=== PATIENT | female | born 1945 | race Caucasian/White ===

== ENCOUNTER 2024-09-25 22:53 | Inpatient (IN) | payer MEDICARE, OTHER, SELFPAY ==
[2024-09-25 17:35] VITALS: BP 118/97
--- NOTE | 2024-09-25 17:46 | ED.GENMED ---
History of Present Illness
General
Chief Complaint: Abdominal Symptoms
Time Seen by Provider: 09/25/24 17:32
History of Present Illness
History of Present Illness:
78-year-old female presents to the emergency department for evaluation of recent increasing lethargy. EMS was called by family and upon arrival of EMS, patient began having copious coffee-ground emesis. She has a history of dementia and can
provide no history. No medication was provided by EMS and no family is present on arrival to the ED.
Review of Systems
Review of Systems
Allergies reviewed?: Yes
All Other Systems: ROS reviewed and negative except as documented in HPI and ROS
Phy Exam
Physical Exam
Physical Exam:
GEN: Well appearing, NAD, WDWN
HEENT: Oral mucosa moist, no scleral icterus
Cardiac: Regular rate
Lung: No respiratory distress, no tachypnea
Abdomen: Soft, diffusely tender to all 4 quadrants
MSK: No gross deformity or injuries
Skin: Good color, no pallor or jaundice, no rashes
Neuro: Alert, follows commands, nonsensical speech, cannot provide history
Psych: Calm, cooperative
Course
Orders/Labs/Results
Orders:
Orders
09/25/24 17:34
Electrocardiogram (*1) Urgent
Reason for Study: Fatigue / Weakness
EKG- Treatment ONCE
09/25/24 17:38
Type+Screen Urgent
Complete Blood Count/With Diff Urgent
Comprehensive Metabolic Panel Urgent
Lipase Urgent
Pantoprazole [Protonix IV] 80 mg IV NOW STA
09/25/24 17:45
Pantoprazole 80 mg/100 ml Nss [Protonix] 80 mg in 100 ml IV Q10H
09/25/24 17:48
0.9% Sodium Chloride [Nss (Preservative Free)] 20 ml IV NOW STA
09/25/24 17:49
Prothrombin Time Urgent
09/25/24 18:25
CT Abd/Pel (IV only)-DH only Urgent
Comment:
Reason For Exam: epigastric pain
09/25/24 18:34
Haloperidol Lactate [Haldol] 1 mg IV NOW STA
09/25/24 19:55
Lorazepam [Ativan] 2 mg .ROUTE .STK-MED ONE
09/25/24 19:57
Lorazepam [Ativan] 1 mg IV NOW STA
09/25/24 20:15
Urinalysis Reflex To Culture Urgent
Date Specimen was Collected: 09/25/24
Time Specimen was Collected: 19:01
Urine Microscopic Reflex Cult Urgent
Urine Culture Urgent
KORI Source: U
Specimen Description:
Date Specimen was Collected: 09/25/24
Time Specimen was Collected: 19:01
09/25/24 20:36
CefTRIAXone [Rocephin] 1,000 mg IV NOW STA
09/25/24 21:03
ABO2 Urgent
BBK Wristband Number:
Associate notified that ABO2 has been ordered: [id number]
Date: 09/25/24
Time: 19:00
[employer] ID: [id number]
Abnormal Lab Results
09/25/24 09/25/24
17:38 20:15
WBC 18.7 H 10^3/uL
(4.8-10.8)
RBC 4.14 L 10^6/uL
(4.20-5.40)
Hct 36.1 L %
(37.0-47.0)
Abs Immat Gran (auto) 0.1 H 10^3/uL
(0-0.05)
Absolute Neuts (auto) 15.7 H 10^3/uL
(1.4-6.5)
Absolute Monos (auto) 1.2 H 10^3/uL
(0.1-0.6)
Immature Gran % 0.7 H %
(0-0.5)
Neutrophils % 84.1 H %
(42.2-75.2)
Lymphocytes % 7.9 L %
(20.5-51.1)
Sodium 134 L mmol/L
(135-145)
BUN 19 H mg/dl
(7-17)
Glucose 126 H mg/dl
(70-99)
Urine Ketones 3+ A
(Negative)
Ur Occult Blood Reflex 2+ A
(Negative)
Leukocyte Esterase Rfl 2+ A
(Negative)
Urine RBC 3-6 A /HPF
(0-2)
Urine WBC (Reflex) 50-60 A /HPF
(0-5)
Urine Bacteria (Reflex) Few A
(Negative)
Urine Albumin (Reflex) 1+ A
(Neg - Trace)
09/25/24 17:38
09/25/24 17:38
Vital Signs
Initial and Last Documented VS:
Initial Vital Signs
Temp Pulse Resp BP Pulse Ox
99.3 F 95 10 118/97 95
09/25/24 17:35 09/25/24 17:35 09/25/24 17:35 09/25/24 17:35 09/25/24 17:35
Last Documented Vital Signs
Temp Pulse Resp BP Pulse Ox
99.3 F 100 16 135/93 97
09/25/24 17:35 09/25/24 19:00 09/25/24 19:00 09/25/24 18:00 09/25/24 18:45
MDM/Problems Addressed
MDM/Problems Addressed:
Patient will be admitted for UTI which is likely the cause of her initial lethargy. She was noted to have significant degree of coffee-ground emesis concerning for upper GI bleed on arrival however vomiting stopped shortly thereafter, hemoglobin is
stable, will maintain PPI drip for admission purposes
*Critical Care Note
Total Time (30-74mins, 75-104mins- exclusive of procedures): Not Applicable
ED Attending Note
-
Portions of this chart may have been created with voice recognition software.� Occasional wrong word or��sound alike� substitutions may have occurred due to the inherent limitations of voice recognition software.
Discharge Plan
Departure
Patient Disposition: Admit
Date of Disposition: 09/25/24
Time of Disposition: 22:13
Admit to: Med/Surg
Presentation/result/management discussed w/ accepting MD/DO: Hospitalist
Discharge Problem:
Urinary tract infection, Coffee ground emesis
Referrals:
Adriana Newton MD [Family Provider] -
Interventions
Interventions:
*Risk Screen - Suicide Last Done: 09/25/24 17:36
*General Assessment Last Done: 09/25/24 17:36
*Neglect/Abuse Screening Last Done: 09/25/24 17:36
*ED- Fall Risk Assessment Last Done: 09/25/24 17:36
*ED COVID-19 Vaccine History Last Done: 09/25/24 17:36
HH-Uszbrs-Yhllixzzow Assessment Last Done: 09/25/24 17:45
Discharge Date and Time
Print Language: TELUGU
[2024-09-25] MEDS: NSS (PRESERVATIVE FREE) 20 ML IV (17:52)
[2024-09-25] MEDS: PROTONIX IV 80 MG IV (17:52)
[2024-09-25 17:55] LABS: % Basophils 0.4 % (0-2); % Eosinophils 0.4 % (0-6); % Immature Granulocytes 0.7 % (0-0.5); % Lymphocytes 7.9 % (20.5-51.1); % Monocytes 6.5 % (1.7-9.3); % Neutrophils 84.1 % (42.2-75.2); Absolute Basophils 0.1 10^3/uL (0-0.2); Absolute Eosinophils 0.1 10^3/uL (0-0.7); Absolute Immature Granulocytes 0.1 10^3/uL (0-0.05); Absolute Lymphocytes 1.5 10^3/uL (1.2-3.4); Absolute Monocytes 1.2 10^3/uL (0.1-0.6); Absolute Neutrophils 15.7 10^3/uL (1.4-6.5); Hematocrit 36.1 % (37.0-47.0); Hemoglobin 12.2 g/dL (12.0-16.0); Mean Corp Hgb Conc. 33.8 g/dL (33.0-37.0); Mean Corpuscular Hgb 29.5 pg (27.0-31.0); Mean Corpuscular Volume 87.2 fL (81.0-99.0); Mean Platelet Volume 8.9 fL (7.4-10.4); Nucleated Red Blood Cells % 0 %; Platelet Count 362 10^3/uL (130-400); Red Blood Cell Count 4.14 10^6/uL (4.20-5.40); Red Cell Dist. Width 13.3 % (11.5-14.5); White Blood Cell Count 18.7 10^3/uL (4.8-10.8)
[2024-09-25] MEDS: PROTONIX 100 IV (17:55)
[2024-09-25 18:00] VITALS: BP 135/93
[2024-09-25 18:09] LABS: ALT (SGPT) 15 U/L (0-35); AST (SGOT) 25 U/L (14-36); Albumin 3.5 g/dl (3.5-5.0); Alkaline Phosphatase 92 U/L (38-126); Blood Urea Nitrogen 19 mg/dl (7-17); Calcium 8.9 mg/dl (8.4-10.2); Carbon Dioxide 27 mmol/L (22-30); Chloride 100 mmol/L (98-107); Glucose 126 mg/dl (70-99); Lipase 58 U/L (23-300); Potassium 3.8 mmol/L (3.5-5.1); Sodium 134 mmol/L (135-145); Total Bilirubin 0.6 mg/dl (0.2-1.3); Total Protein 6.3 g/dl (6.3-8.2); eGFR > 60.00
[2024-09-25 18:11] LABS: INR 0.99; PT 13.4 Sec (11.4-14.6)
[2024-09-25] MEDS: HALDOL 1 MG IV (18:36)
[2024-09-25] MEDS: ATIVAN 1 MG IV (19:57)
[2024-09-25 20:20] LABS: Urine Albumin 1+ (Neg - Trace); Urine Bilirubin Negative (Negative); Urine Character Clear (Clear); Urine Color Yellow; Urine Glucose Negative (Negative); Urine Ketone 3+ (Negative); Urine Leukocyte 2+ (Negative); Urine Nitrite Negative (Negative); Urine Occult Blood 2+ (Negative); Urine Urobilinogen Negative (Neg - 1+)
[2024-09-25 20:27] LABS: Urine Squamous Cell 0-2 /LPF (Few)
[2024-09-25 20:28] LABS: Urine Bacteria Few (Negative); Urine White Cell 50-60 /HPF (0-5)
[2024-09-25] MEDS: ROCEPHIN 1000 MG IV (21:04)
[2024-09-25 22:19] VITALS: BP 145/77
[2024-09-25] MEDS: NSS 1000 IV (22:22)
--- NOTE | 2024-09-25 22:46 | HPS.HSE ---
Family Physician
-
Family Physician: Adriana Newton
Chief Complaint
-
unresponsiveness
History of Present Illness
78-year-old female past medical history of breast cancer, dementia, hypertension, GERD/hiatal hernia, hyperlipidemia, presenting with change in mental status. Patient has severe dementia and normally cannot have during conversations which is gotten
worse over the past several months. Yesterday was a particularly bad day and she was romero and refusing medications. This morning she would not wake up until this afternoon and was less responsive. She has been having urinary incontinence for the
past month. She was noted to have some chills. She has been refusing her stool softener and did not have a bowel movement for 3 days.
EMS was called due to decreased responsiveness and while they were there she had projectile vomiting of coffee-ground emesis.
She does not smoke or drink alcohol.
Medical History
Past Medical History
Past Medical History: Reports Other ( breast cancer, dementia, hypertension, GERD/hiatal hernia, hyperlipidemia)
Past Surgical History: Reports Other (Bilateral knee surgery, cataract surgery, hiatal hernia surgery)
Social History
Tobacco: Non-smoker
Alcohol: None
Drug: None
Family History
Family History: Not pertinent
Allergies / Home Medications
Allergies reflects when Allergies were last updated in [facility].
Home Medications with original date entered in [facility]
Allergy/Medication List:
Allergies
Allergy/AdvReac Type Severity Reaction Status Date / Time
No Known Allergies Allergy Verified 09/25/24 17:44
Home Medications
anastrozole 1 mg tablet 1 mg PO QPM 09/25/24
donepezil 10 mg tablet 10 mg PO HS 09/25/24
losartan 100 mg-hydrochlorothiazide 25 mg tablet 1 tab PO DAILY 09/25/24
memantine 10 mg tablet 10 mg PO BID 09/25/24
omeprazole 40 mg capsule,delayed release 40 mg PO DAILY 09/25/24
risperidone 1 mg tablet 1 mg PO NOON 09/25/24
simvastatin 20 mg tablet 20 mg PO DAILY 09/25/24
Review of Systems
-
History Source: Patient
A 12 point ROS was completed and negative except as noted: Yes
Constitutional: Reports No Symptoms
EENT: Reports No Symptoms
Respiratory: Reports No Symptoms
Cardiac: Reports No Symptoms
Abdomen/GI: Reports See HPI
: Reports No Symptoms
Musculoskeletal: Reports No Symptoms
Skin: Reports No Symptoms
Neurological: Reports No Symptoms
Endocrine: Reports No Symptoms
Hematologic/Lymphatic: Reports No Symptoms
Psych: Reports No Symptoms
Physical Exam
Vital Signs
Vital Signs
Temp Pulse Resp BP Pulse Ox
99.3 F 84 15 145/77 98
09/25/24 17:35 09/25/24 22:30 09/25/24 22:30 09/25/24 22:19 09/25/24 22:30
Physical Exam
General: Well Developed, Well Nourished and No Apparent Distress
HEENT: NormoCephalic, Moist mucous membranes and Atraumatic
Respiratory: Clear
Cardiac: S1/S2 and Regular Rhythm; No Murmur or Rub
GI: Soft, Non Tender, Non Distended and Normal Bowel Sounds; No Organomegaly
Rectal: Deferred by Provider
Musculoskeletal: No Clubbing, No Cyanosis and No Edema
Skin: No Rash
Neuro: Nonfocal/grossly intact
Laboratory Results
-
09/25/24 17:38
09/25/24 17:38
Laboratory Results
PT 13.4 Sec (11.4-14.6) 09/25/24 17:49
INR 0.99 09/25/24 17:49
Total Bilirubin 0.6 mg/dl (0.2-1.3) 09/25/24 17:38
AST 25 U/L (14-36) 09/25/24 17:38
ALT 15 U/L (0-35) 09/25/24 17:38
Alkaline Phosphatase 92 U/L (38-126) 09/25/24 17:38
Lipase 58 U/L (23-300) 09/25/24 17:38
Data Reviewed
-
Lab Data: Labs Reviewed by me
Old Records: Reviewed
Impression/Plan
-
IMPRESSION:
PLAN:
# Acute on chronic metabolic encephalopathy secondary to UTI
-Leukocytosis of 18
-Urine culture
-IV fluids
-Ceftriaxone
# Upper GI bleeding
-CT abdomen pelvis shows reflux esophagitis, moderate hiatal hernia, mild enteritis/ileitis, moderate colonic stool burden
-Protonix drip
-N.p.o.
-Hemoglobin of 12
# Constipation
-last bowel movement 3 days ago
-Resume bowel regimen if patient agreeable
-Start MiraLAX
History of hiatal hernia status post surgery
GERD
Progressive dementia with worsening behavioral disturbances
-Continue memantine, donepezil
-Continue Risperdal
Essential hypertension
-Continue losartan/hydrochlorothiazide
Hyperlipidemia
-Continue statin
Breast cancer
-Continue anastrozole
Full code
DVT prophylaxis�SCDs
N.p.o.
[2024-09-25 23:00] VITALS: BP 154/70
[2024-09-25 23:46] VITALS: BP 151/82
[2024-09-26] MEDS: NSS 1000 IV ×3 (00:18→22:13)
--- NOTE | 2024-09-26 00:27 | PTCARENOTE ---
Patient arrived from ED, lethargic, nonverbal. VSS. Patient nonverbal; per , patient is nonverbal, at baseline. Admission completed by this RN via phone call with patient's , Eduardo. Per Eduardo, patient has fallen in the last month;
therefore, patient is a high fall risk. Bed alarm in place. Fall Risk magnet hanging, outside patient's door. Skin check completed. Old/healing pressure injury on sacrum with new, developing pressure injury. Wound consulted. IV fluids running at
100 ml/hr. Incontinence care completed. Q 2 hour turns. Bed in lowest position. Call hernandez and personal belongings within reach.
[2024-09-26] MEDS: PROTONIX 100 IV (03:46)
--- NOTE | 2024-09-26 06:46 | CON.GI ---
Addendum entered and electronically signed by Lilian De La Garza MD 09/26/24 18:15:
The patient was seen and examined by me independently in collaboration with the nurse practitioner.
Past medical history/social history/medications/allergies/family history reviewed.
Lab data and imaging data reviewed.
78-year-old female recent evaluation emergency room for constipation presenting with decreased oral intake and coffee-ground emesis. Found to have leukocytosis on admission with low-grade temperature to 100.5. CT showed reflux esophagitis,
moderate hiatal hernia, consider direct visualization to rule out esophageal cancer, ileus, colonic stool burden may represent constipation. Patient has dementia minimally verbal. Unable to take much of a history. She was found to have a UTI.
Most likely has ileus and constipation resulting in vomiting and coffee-ground emesis. Plan for bowel regimen. Trend hemoglobin. Continue PPI although low suspicion for GI bleed. I attempted to reach out to the , I will discuss with him
endoscopy in the future for this radiology read but my suspicion is given her advanced dementia will be likely best to hold off on further evaluation. I left him a voicemail and I will try to reach out to him again tomorrow.
Original Note:
Consultation
-
Date/Time Consultation Requested: 09/25/24 2340
Date/Time Consultation Performed: 09/26/24 1140
Requesting Provider: Ashly Penaloza MD
Performing Provider: Vangie ROBERTS, Maria De La Garza MD
Reason for Consultation: coffee ground emesis, constipation
Medical History
Chief Complaint / HPI
Chief Complaint: vomiting, constipation
History of Present Illness:
Pt is an 78yo with hx breast CA, dementia, HTN, GERD, HH with prior HH repair, hyperlipidemia with eval 09/25 in ER for constipation, decreased oral intakes and coffee ground emesis. On admission noted with WBC 18,700, hbg 12.2, Na 134, glucose 126,
US with increased WBC's and bacteria with cx pending with otherwise stable labs with low grade temp 100.5. CT completed on admission with IV contrast only with reflux esophagitis, moderate HH, consider visualization to rule out distal esophageal
neoplasm, mild ileus/enteritis, and moderate stool burden with concern for constipation. No hx EGD. hx colonoscopy 2012 with 2 mm HP polyps in sigmoid and TC, scar in rectum.
At this time reviewed with spouse pt with baseline dementia with minimal verbal but ambulatory status. He noted some balance issues and change in mentation for 2 days with onset of fever then on arrival for EMS noted with vomiting large amount
dark emesis. he did have some difficulty with swallowing pill just before admission with weakness. Last episode of vomiting about 2 years ago with viral illness. She has chronic constipation with stools every several days despite Miralax daily.
No rectal bleeding.
Past Medical History
Past Medical History: Cancer (breast CA), GERD, HTN, Hypercholesterolemia, Psychiatric (dementia ) and Other (hiatal hernia )
Past Surgical History: Orthopedic (b/l TKR) and Other (HH repair, cataract surgery )
Social History
Tobacco: Former Smoker (quit 40 years ago )
Alcohol: Former (social in past )
Drug: None
Personal:
Living: With Family
Employment: Retired
Family History
Family History: Other (no known family hx GI malignancies or problems)
Allergies / Home Medications
Allergy/AdvReac Type Severity Reaction Status Date / Time
No Known Allergies Allergy Verified 09/25/24 17:44
�Medication �Instructions �Recorded
anastrozole 1 mg tablet 1 mg PO QPM 09/25/24
donepezil 10 mg tablet 10 mg PO HS 09/25/24
losartan 100 1 tab PO DAILY 09/25/24
mg-hydrochlorothiazide 25 mg tablet
memantine 10 mg tablet 10 mg PO BID 09/25/24
omeprazole 40 mg capsule,delayed 40 mg PO DAILY 09/25/24
release
risperidone 1 mg tablet 1 mg PO NOON 09/25/24
simvastatin 20 mg tablet 20 mg PO DAILY 09/25/24
Review of Systems
-
Unable to obtain full review of systems at this time due to: Dementia
History Source: Patient and Family
Constitutional: Reports Fever and Fatigue (balance issues prior to admission)
EENT: Reports No Symptoms
Respiratory: Reports No Symptoms
Abdomen/GI: Reports Nausea, Vomiting (dark emesis prior to admission ) and Constipated
: Reports Other (difficult to assess with dementia )
Skin: Reports No Symptoms
Neurological: Reports No Symptoms and Weakness
Endocrine: Reports No Symptoms
Hematologic/Lymphatic: Reports Bleeding (dark emesis )
Vital Signs
Temp Pulse Resp BP Pulse Ox
100.5 F H 87 18 151/82 99
09/25/24 23:46 09/25/24 23:46 09/25/24 23:46 09/25/24 23:46 09/25/24 23:46
Physical Exam
Exam
General: Other (non verbal but attempting to take off mits )
HEENT: Normocephalic and Anicteric
Respiratory: Clear
Cardiac: Regular Rhythm
GI: Soft, Non Tender and Non Distended
Musculoskeletal: No Clubbing and No Cyanosis
Skin: Warm and Dry
Neuro: Other (non verbal but attempting to take off mits )
Psych: Calm
Results
WBC 18.7 10^3/uL (4.8-10.8) H 09/25/24 17:38
Hgb 12.2 g/dL (12.0-16.0) 09/25/24 17:38
Hct 36.1 % (37.0-47.0) L 09/25/24 17:38
MCV 87.2 fL (81.0-99.0) 09/25/24 17:38
Plt Count 362 10^3/uL (130-400) 09/25/24 17:38
Absolute Neuts (auto) 15.7 10^3/uL (1.4-6.5) H 09/25/24 17:38
PT 13.4 Sec (11.4-14.6) 09/25/24 17:49
INR 0.99 09/25/24 17:49
Sodium 134 mmol/L (135-145) L 09/25/24 17:38
Potassium 3.8 mmol/L (3.5-5.1) 09/25/24 17:38
Chloride 100 mmol/L (98-107) 09/25/24 17:38
Carbon Dioxide 27 mmol/L (22-30) 09/25/24 17:38
BUN 19 mg/dl (7-17) H 09/25/24 17:38
Creatinine 0.6 mg/dL (0.6-1.0) 09/25/24 17:38
Calcium 8.9 mg/dl (8.4-10.2) 09/25/24 17:38
Total Bilirubin 0.6 mg/dl (0.2-1.3) 09/25/24 17:38
AST 25 U/L (14-36) 09/25/24 17:38
ALT 15 U/L (0-35) 09/25/24 17:38
Alkaline Phosphatase 92 U/L (38-126) 09/25/24 17:38
Lipase 58 U/L (23-300) 09/25/24 17:38
Diagnostic Image Results:
09/25/24 CT Abd/Pel (IV only)-DH only
1. Findings in keeping with reflux esophagitis. Moderate hiatal hernia. Consider direct visualization to rule out underlying distal esophageal neoplasm.
2. Mild enteritis/ileus.
3. Moderate diffuse colonic stool burden may reflect constipation.
EGD: none
2012 colonoscopy [facility] - Two 2 mm polyps in the sigmoid colon and in the
transverse colon. Resected and retrieved.
- Scar in the rectum.
bx HP polyp
Assessment / Plan
-
Pt is an 78yo with hx breast CA, dementia, HTN, GERD, HH with prior HH repair, hyperlipidemia with eval 09/25 in ER for constipation, decreased oral intakes and coffee ground emesis. On admission noted with WBC 18,700, hbg 12.2, Na 134, glucose 126,
US with increased WBC's and bacteria with cx pending with otherwise stable labs with low grade temp 100.5. CT completed on admission with IV contrast only with reflux esophagitis, moderate HH, consider visualization to rule out distal esophageal
neoplasm, mild ileus/enteritis, and moderate stool burden with concern for constipation. hx colonoscopy 2012 with 2 mm HP polyps in sigmoid and TC, scar in rectum.
-coffee ground emesis
-CT with reflux esophagitis/ moderate HH on PPI daily prior to admission
-constipation with moderate stool burden on imaging
-ileus/enteritis per imaging
-concern for UTI on admission
-leukocytosis with low grade fever
-hypokalemia
other med problems:
-GERD
-hx HH with prior repair
-dementia
-HTN
-hyperlipidemia
PLAN:
etiology of symptoms likely UTI with noted ileus/constipation with vomiting/coffee ground emesis with some more right sided stool burden
cont to treat UTI with abx await urine cx
no stools overnight
will increased miralax to BID - will need increased dosing on discharge with baseline stools every 3 days
give tap water enema now
CT with esophagitis /HH consider visualization per radiology --- would proceed with bowel regiment and clear out the review need for EGD with spouse-- hold for now unless signs of aggressive bleeding for now with fever/leukocytosis
trend hbg stable at 11.6
cont PPI BID
for speech eval with decreased mentation
review with nursing for slow oral intakes with some decreased mentation and hx vomiting prior to admission
if severe recurrent vomiting may need NGT
replete K per hospitalist
updated spouse
-
-
-
Thank you for consultation and allowing me to participate in the patient's care. Please call the [facility] physician during the after hours with any questions or concerns.
[2024-09-26 07:16] VITALS: BP 127/69
[2024-09-26 09:26] LABS: % Basophils 0.3 % (0-2); % Eosinophils 1.1 % (0-6); % Immature Granulocytes 0.5 % (0-0.5); % Lymphocytes 5.4 % (20.5-51.1); % Monocytes 6.8 % (1.7-9.3); % Neutrophils 85.9 % (42.2-75.2); Absolute Basophils 0.1 10^3/uL (0-0.2); Absolute Eosinophils 0.2 10^3/uL (0-0.7); Absolute Immature Granulocytes 0.1 10^3/uL (0-0.05); Absolute Lymphocytes 0.8 10^3/uL (1.2-3.4); Hematocrit 34.9 % (37.0-47.0); Hemoglobin 11.6 g/dL (12.0-16.0); Mean Corp Hgb Conc. 33.2 g/dL (33.0-37.0); Mean Corpuscular Hgb 29.9 pg (27.0-31.0); Mean Corpuscular Volume 89.9 fL (81.0-99.0); Mean Platelet Volume 9.5 fL (7.4-10.4); Nucleated Red Blood Cells % 0 %; Platelet Count 339 10^3/uL (130-400); Red Blood Cell Count 3.88 10^6/uL (4.20-5.40); Red Cell Dist. Width 13.4 % (11.5-14.5); White Blood Cell Count 15.1 10^3/uL (4.8-10.8)
--- NOTE | 2024-09-26 09:56 | W.PN.HOSP.TC ---
Addendum entered and electronically signed by Janki Dumont MD 09/26/24 11:38:
correction: Zosyn, will will treat suspected UTI and also cover Ileitis seen on CT
Original Note:
Today's Communication/Plan
-
see outlined plan below
Assessment / Plan
Assessment / Plan
Assessment:
Metabolic encephalopathy (from UTI) on chronic advanced, at least moderate degree, dementia
- mitts applied due to pulling wires
- no clear agitation just confused
- monitor mentation as treatment evolves
- continue Risperdal/Donepezil/Memantine when feasible
- NPO pending ST and GI evals. IVF running
Acute UTI
- leukocytosis; improving
- continue IV Rocephin day 2; pending culture
Acute vomiting with coffee grounds; concern for upper GI bleed
Hx of esophagitis, hiatal hernia (s/p surgery) and reflux/GERD
- continue IV PPI BID
- CT also with constipation which might be contributing to upper GI symptoms
- GI consulted
- continue bowel regimen
Essential hypertension
- continue losartan/hydrochlorothiazide
Hyperlipidemia
- continue statin
Breast cancer
- continue anastrozole
DVT ppx: SCDs
Code: Full
Anticipated Discharge: > 48 hours
Subjective/Interval History
-
Date of Service: September 26, 2024
in mitts, confused, per , acutely from chronic confusion
no vomiting
no BM x 3 days
Objective Data
-
Labs:
Laboratory Results
09/26/24
08:29
WBC 15.1 H
Hgb 11.6 L
Hct 34.9 L
Plt Count 339
Sodium Pending
Potassium Pending
Chloride Pending
Carbon Dioxide Pending
BUN Pending
Creatinine Pending
Glucose Pending
Calcium Pending
Total Bilirubin Pending
AST Pending
ALT Pending
Alkaline Phosphatase Pending
Vital Signs:
Vital Signs
Temp Pulse Resp BP Pulse Ox
98.7 F 85 18 127/69 98
09/26/24 07:16 09/26/24 07:16 09/26/24 07:16 09/26/24 07:16 09/26/24 07:16
Physical Exam
-
General: No Apparent Distress
HEENT: Normocephalic and Atraumatic
Respiratory: Negative Wheezes
Cardiac: Regular Rhythm and S1/S2
GI: Soft
Genito-urinary: No Costovertebral Tender
Neuro: Awake and AO x 3
Psych: Confused and Apparent Dementia
Data Reviewed
-
Total Time Spent with Patient (in minutes): 41
Labs: Labs Reviewed by me
[2024-09-26 10:47] LABS: ALT (SGPT) 14 U/L (0-35); AST (SGOT) 24 U/L (14-36); Albumin 3.6 g/dl (3.5-5.0); Alkaline Phosphatase 89 U/L (38-126); Blood Urea Nitrogen 9 mg/dl (7-17); Calcium 8.2 mg/dl (8.4-10.2); Carbon Dioxide 25 mmol/L (22-30); Chloride 104 mmol/L (98-107); Glucose 82 mg/dl (70-99); Potassium 3.1 mmol/L (3.5-5.1); Total Bilirubin 0.6 mg/dl (0.2-1.3); Total Protein 6.1 g/dl (6.3-8.2); eGFR > 60.00
[2024-09-26 11:02] LABS: Sodium 136 mmol/L (135-145)
[2024-09-26] MEDS: ZOSYN 50 IV ×3 (11:13→22:13)
[2024-09-26] MEDS: PROTONIX IV 40 MG IV ×3 (11:19→20:06)
[2024-09-26] MEDS: NSS (PRESERVATIVE FREE) 10 ML IV ×2 (11:19→20:06)
--- NOTE | 2024-09-26 11:19 | WOUNDNOTE ---
WON RN note: Patient admitted with UTI and coffee ground emesis.
See H&P for complete history.
PMH: Past Medical History: Reports Other ( breast cancer, dementia, hypertension, GERD/hiatal hernia, hyperlipidemia)
Past Surgical History: Reports Other (Bilateral knee surgery, cataract surgery, hiatal hernia surgery)
Wound Location and type/assessment: Patient admitted with: mid sacral tiny stage 2 PI vs MASD. Patient was incontinent of urine when turned. Has B/L buttocks healed old PI scar visible. Heels are intact.
Appetite: NPO
Pressure redistribution devices in place: Versa care air, pillows under calves.
Plan: Applied sacral silicone foam to sacrum. Foam adhesives applied to heels. Repositioned patient onto L semi side lying position. Will confirm orders with hospitalist and updated nurse. Updated care plan and will follow as needed.
Note to case management of equipment requested for discharge: none
[2024-09-26] MEDS: MIRALAX 17 GRAMS PO (11:20)
[2024-09-26] MEDS: HYZAAR 100-25 TABLET 1 TAB PO (11:20)
[2024-09-26] MEDS: LIPITOR 10 MG PO (11:20)
[2024-09-26] MEDS: NAMENDA 10 MG PO (11:21)
--- NOTE | 2024-09-26 11:30 | PTCARENOTE ---
11:00 am Pt confused most of time, noted pt pulled out IV. Notified IV nurse. Dr. Dumont notified, applied bilateral hand mitts, not tied. Pt spouse here to see pt and aware, continue to monitor pt closely.
[2024-09-26] MEDS: KCL 270 MEQ IV (11:55)
[2024-09-26] MEDS: RISPERDAL 1 MG PO (11:55)
--- NOTE | 2024-09-26 12:57 | CM ---
CM reviewed chart, patient currently in [facility], history dementia, non verbal. Call to patients spouse, Eduardo, initial assessment completed. Patient resides with spouse in a multiple story home ([facility]), three steps to enter. Per spouse, up until
the past few days, patient was ambulating without a device, sometimes uncertain about balance, does have a walker and cane at home. Spouse reports patients PCP sent out a VN to evaluate patient, was a one time visit and is not currently working with
any VN services, spouse was not certain which agency came out. Spouse denies SNF history. Patient PCP Adriana Newton, pharmacy [facility], prescription coverage through [employer]. Speech eval ordered. CM will continue to follow for all
discharge planning needs.
Plan; home with spouse, watch for VN services.
--- NOTE | 2024-09-26 13:07 | PTOTSP ---
Speech Therapy Evaluation:
Swallowing assessment somewhat limited given pt declination and restriction to clears, in which pt tolerated via straw without difficulty. Pt with chronic risk factor of dysphagia (dementia), that is acutely compounded by metabolic encephalopathy in
the setting of UTI. Pt also remains at risk of post-prandial aspiration given abdomen/pelvis CT showing reflux esophagitis and moderate hiatal hernia. Per CT, lung bases unremarkable.
Recommend:
1. Initiate thin liquids - pt restricted to clear liquid diet per medical team
2. Medications as best tolerated
3. Strict aspiration and reflux precautions
4. 1:1 assistance with PO intake
5. RN RENAL to follow to assess candidacy for diet upgrade as able
[2024-09-26 15:46] VITALS: BP 141/69
[2024-09-26] MEDS: ARIMIDEX 1 MG PO (17:54)
--- NOTE | 2024-09-26 18:45 | PTCARENOTE ---
1830 Tap water enema given x 1 as ordered, pt had small soft stool results, continue to monitor pt closely.
[2024-09-26] MEDS: NAMENDA PO ×2 (20:05→21:44)
[2024-09-26] MEDS: ARICEPT PO (21:44)
--- NOTE | 2024-09-26 23:52 | PTCARENOTE ---
Patient keeps removing bilateral soft mitt restraints. No need for soft mitt restraints, at this time
[2024-09-27 00:05] VITALS: BP 121/69
--- NOTE | 2024-09-27 02:12 | PTCARENOTE ---
Patient alert to lethargic. Restless with impulsivity. Unable to assess orientation but patient does follow minimal commands. Speech is garbled and nonsensical. Patient refusing to drink for medication administration. Tap water enema administered,
prior to change of shift. Patient with multiple bowel movements post enema administration. Incontinent of bowel and bladder--incontinence care completed. IV fluids running at 100 ml/hr. IV site changed by IV team. Bed in lowest position. Bed alarm
on. Hourly rounding performed to ensure patient safety. Call hernandez and personal belongings within reach.
[2024-09-27] MEDS: ZOSYN 50 IV ×4 (04:04→21:56)
[2024-09-27 07:05] VITALS: BP 145/72
[2024-09-27 08:00] LABS: Hematocrit 30.4 % (37.0-47.0); Hemoglobin 10.4 g/dL (12.0-16.0); Mean Corp Hgb Conc. 34.2 g/dL (33.0-37.0); Mean Corpuscular Hgb 30.1 pg (27.0-31.0); Mean Corpuscular Volume 88.1 fL (81.0-99.0); Mean Platelet Volume 9.2 fL (7.4-10.4); Platelet Count 296 10^3/uL (130-400); Red Blood Cell Count 3.45 10^6/uL (4.20-5.40); Red Cell Dist. Width 13.2 % (11.5-14.5); White Blood Cell Count 12.1 10^3/uL (4.8-10.8)
[2024-09-27] MEDS: PROTONIX IV IV (08:16)
[2024-09-27 08:51] LABS: Blood Urea Nitrogen 5 mg/dl (7-17); Carbon Dioxide 25 mmol/L (22-30); Chloride 102 mmol/L (98-107); Glucose 86 mg/dl (70-99); Potassium 3.5 mmol/L (3.5-5.1); Sodium 133 mmol/L (135-145); eGFR > 60.00
--- NOTE | 2024-09-27 09:31 | W.PN.GI.CBS2 ---
Addendum entered and electronically signed by Lilian De La Garza MD 09/27/24 10:17:
I saw and examined the patient.
The LUBE TECHNICIAN or PA's note was reviewed and I agree with the note.
Comment: 78-year-old female recent evaluation emergency room for constipation presenting with decreased oral intake and coffee-ground emesis. Found to have leukocytosis on admission with low-grade temperature to 100.5. CT showed reflux
esophagitis, moderate hiatal hernia, consider direct visualization to rule out esophageal cancer, ileus, colonic stool burden may represent constipation. Patient has dementia minimally verbal. Unable to take much of a history. She was found to
have a UTI. Most likely has ileus and constipation resulting in vomiting and coffee-ground emesis.
Multiple BM with regimen. I d/w plan miralax bid on discharge.
Slight drop in Hb. Continue PPI BID and transition to daily on discharge. No overt bleeding in hospital.
I d/w at length EGD r/a/b risks including but not limited to bleeding, infection, perforation. We discussed if she did have malignancy if he would want surgery, chemotherapy which he stated he would not. He would like to hold off on EGD
which is reasonable. I provided my card to reach out if outpatient she has ongoing n/v/constipation and/or he would like to pursue EGD in the future.
OK for diet per speech path.
GI will sign off, please call with ?s.
Original Note:
Today's Communication / Plan
-
etiology of symptoms likely UTI with noted ileus/constipation with vomiting/coffee ground emesis with some more right sided stool burden
cont to treat UTI with abx await urine cx
+ stool overnight with enema
change regiment to Miralax in AM and Senna at HS-- home stool pattern every 3 days -- would continue regiment on discharge- and adjust as needed
CT with esophagitis /HH consider visualization per radiology --- would proceed with bowel regiment and clear out the review need for EGD with spouse-- hold for now unless signs of aggressive bleeding for now with fever/leukocytosis
Dr. De La Garza will reviewed with spouse about need to proceed in future
trend hbg stable at 10.4
more awake today -- advance to regular diet-- speech to see for any restrictions
cont PPI BID -- transition to Omeprazole 40mg daily ( home dose on discharge)
K improved to 3.5 -- keep electrolyte corrected
Assessment / Plan
-
Pt is an 78yo with hx breast CA, dementia, HTN, GERD, HH with prior HH repair, hyperlipidemia with eval 09/25 in ER for constipation, decreased oral intakes and coffee ground emesis. On admission noted with WBC 18,700, hbg 12.2, Na 134, glucose 126,
US with increased WBC's and bacteria with cx pending with otherwise stable labs with low grade temp 100.5. CT completed on admission with IV contrast only with reflux esophagitis, moderate HH, consider visualization to rule out distal esophageal
neoplasm, mild ileus/enteritis, and moderate stool burden with concern for constipation. hx colonoscopy 2012 with 2 mm HP polyps in sigmoid and TC, scar in rectum.
-coffee ground emesis - resolved
-CT with reflux esophagitis/ moderate HH on PPI daily prior to admission
-constipation with moderate stool burden on imaging
-ileus/enteritis per imaging
-concern for UTI on admission
-leukocytosis with low grade fever
-hypokalemia
other med problems:
-GERD
-hx HH with prior repair
-dementia
-HTN
-hyperlipidemia
PLAN:
etiology of symptoms likely UTI with noted ileus/constipation with vomiting/coffee ground emesis with some more right sided stool burden
cont to treat UTI with abx await urine cx
+ stool overnight with enema
change regiment to Miralax in AM and Senna at HS-- home stool pattern every 3 days -- would continue regiment on discharge- and adjust as needed
CT with esophagitis /HH consider visualization per radiology --- would proceed with bowel regiment and clear out the review need for EGD with spouse-- hold for now unless signs of aggressive bleeding for now with fever/leukocytosis
Dr. De La Garza will reviewed with spouse about need to proceed in future
trend hbg stable at 10.4
more awake today -- advance to regular diet-- speech to see for any restrictions
cont PPI BID -- transition to Omeprazole 40mg daily ( home dose on discharge)
K improved to 3.5 -- keep electrolyte corrected
-
Subjective
Subjective
Date of Service: September 27, 2024
09/26 brown loose stool overnight per nursing staff , NPO
Objective
Data Reviewed
Laboratory Data:
Laboratory Results
09/27/24 07:35
09/27/24 07:35
Laboratory Results
PT 13.4 Sec (11.4-14.6) 09/25/24 17:49
INR 0.99 09/25/24 17:49
Total Bilirubin 0.6 mg/dl (0.2-1.3) 09/26/24 08:29
AST 24 U/L (14-36) 09/26/24 08:29
ALT 14 U/L (0-35) 09/26/24 08:29
Alkaline Phosphatase 89 U/L (38-126) 09/26/24 08:29
Lipase 58 U/L (23-300) 09/25/24 17:38
Vital Signs and I&O:
Vital Signs
Temp Pulse Resp BP Pulse Ox
97.8 F 81 18 145/72 98
09/27/24 07:05 09/27/24 07:05 09/27/24 07:05 09/27/24 07:05 09/27/24 07:05
I&O
09/26/24 09/27/24 09/28/24
06:59 06:59 06:59
Intake Total 2446 / 2446
Balance 2446 / 2446
Physical Exam
Physical Exam
HEENT: Anicteric and Moist mucous membranes
Cardiology: Normal Sinus Rhythm
Pulmonary: Clear
GI: Soft, Non Distended and Non Tender
Extremities: No Edema
Neuro: Other (confused but more awake and conversant today )
[2024-09-27] MEDS: NSS 1000 IV (09:52)
[2024-09-27] MEDS: HYZAAR 100-25 TABLET 1 TAB PO (10:01)
[2024-09-27] MEDS: NAMENDA 10 MG PO ×2 (10:02→20:34)
[2024-09-27] MEDS: PROTONIX IV 40 MG IV (10:02)
[2024-09-27] MEDS: LIPITOR 10 MG PO (10:02)
[2024-09-27] MEDS: NSS (PRESERVATIVE FREE) 10 ML IV (10:02)
--- NOTE | 2024-09-27 11:42 | CM ---
Chart reviewed and correctional case records supervisor met with patient and spouse at bedside, PT OT ordered, correctional case records supervisor reviewed home set up for patient and patient has private caregivers in home 12 hours per week from [employer]. Plan is to increase
private duty nursing in home from [employer], correctional case records supervisor offered patient's spouse visiting nurses however patient declined, correctional case records supervisor reviewed possible snf placement in future and encouraged patient's spouse to tour
[facility] and other local snf after discharge and patient's spouse has agreed to do this.
Plan; Home with spouse with increased private duty nursing from [employer], patient's spouse has declined visiting nurses at discharge.
--- NOTE | 2024-09-27 11:58 | W.PN.HOSP.TC ---
Today's Communication/Plan
-
diet, bowel regimen oral PPI
continue IV abx
dc planning - PT/OT evals
Assessment / Plan
Assessment / Plan
Assessment:
Metabolic encephalopathy (from UTI) on chronic advanced, at least moderate degree, dementia
- mitts applied due to pulling wires
- no clear agitation just confused
- monitor mentation as treatment evolves
- continue Risperdal/Donepezil/Memantine when feasible
- regular diet per ST eval
Acute UTI
- leukocytosis; improving
- continue IV Zosyn day 3/; culture mixed rashida
Acute vomiting with coffee grounds; concern for upper GI bleed
Hx of esophagitis, hiatal hernia (s/p surgery) and reflux/GERD
- continue PPI BID; daily at discharge
- CT also with constipation which might be contributing to upper GI symptoms
- s/p enema with multiple BMs. continue bowel regimen per GI
Essential hypertension
- continue losartan/hydrochlorothiazide
Hyperlipidemia
- continue statin
Breast cancer
- continue anastrozole
DVT ppx: SCDs
Code: Full
Anticipated Discharge: Within 24 hours
Subjective/Interval History
-
Date of Service: September 27, 2024
s/p BMs
passed speech evals
Objective Data
-
Labs:
Laboratory Results
09/27/24
07:35
WBC 12.1 H
Hgb 10.4 L
Hct 30.4 L
Plt Count 296
Sodium 133 L
Potassium 3.5
Chloride 102
Carbon Dioxide 25
BUN 5 L
Creatinine 0.6
Glucose 86
Calcium 8.0 L
Vital Signs:
Vital Signs
Temp Pulse Resp BP Pulse Ox
97.8 F 81 18 145/72 98
03/27/25 07:05 09/27/24 07:05 09/27/24 07:05 09/27/24 07:05 09/27/24 07:05
I&O
09/26/24 09/27/24 09/28/24
06:59 06:59 06:59
Intake Total 2446 / 2446
Balance 2446 / 2446
Physical Exam
-
General: No Apparent Distress
HEENT: Normocephalic and Atraumatic
Respiratory: Negative Wheezes
Cardiac: Regular Rhythm and S1/S2
GI: Soft
Genito-urinary: No Costovertebral Tender
Psych: Confused and Apparent Dementia
Data Reviewed
-
Total Time Spent with Patient (in minutes): 42
Labs: Labs Reviewed by me
[2024-09-27] MEDS: RISPERDAL PO (13:37)
[2024-09-27 14:32] VITALS: BP 158/80; PULSE 77; O2SAT 96
[2024-09-27 14:33] VITALS: BP 158/80; O2SAT 97
--- NOTE | 2024-09-27 15:29 | PN.CDI ---
CDI
- -
CDI:
Physician Documentation Request
Admit Date: 09/25/24 22:53
Dear Doctor Julia,
Please review the following and provide your response in the progress notes.
Clinical Indicators:
Pt admitted with Metabolic encephalopathy (from UTI) on chronic advanced, at least moderate degree, dementia.
09/26 WOC RN: ' Patient admitted with: mid sacral tiny stage 2 PI vs MASD.'
Physician documentation of the type and location of wounds is required for compliant documentation. Based on the above clinical findings and your assessment, please provide the following in your progress note:
1. Location of the ulcer/wound, including laterality.
2. Type (etiology) of ulcer/wound:
Stage 2 Sacral Pressure injury POA
Sacral Non-Pressure injury POA
Use of terms such as suspected, likely, concern for, or probable (associated with a specific diagnosis that is being evaluated, monitored, or treated as if it exists) are acceptable and can be coded in the inpatient setting, when documented at the
time of discharge.
Thank you,
Nadine Lyman RN, BSN
CDI Specialist
[place] [facility]
Please use your independent medical judgment in providing your response.
*Source: National Pressure Ulcer Advisory Panel (NPUAP)
--- NOTE | 2024-09-27 15:36 | PN.CDI ---
CDI
- -
CDI:
Physician Documentation Request
Admit Date: 09/25/24 22:53
Dear Doctor Julia,
Please review the following and provide your response in the progress notes.
Clinical Indicators:
Pt admitted with Metabolic encephalopathy (from UTI) on chronic advanced, at least moderate degree, dementia.
Selected Entries
09/25/24
17:35 09/25/24
17:45 09/25/24
19:00
Pulse 95 103 100
Laboratory Tests
09/25/24 09/26/24 09/27/24
17:38 08:29 07:35
WBC 18.7 H 15.1 H 12.1 H
Please clarify which of the following most accurately describes the status of the patient's infection:
Sepsis
- Systemic manifestations of infection, with 2 or more SIRS criteria which include:
- Fever >100.4 degrees F or hypothermia < 96.8 degrees F
- Leukocytosis - WBC > 12,000 or leukopenia - WBC < 4,000 or > 10% bands
- Tachycardia > 90 beats per minute
- Tachypnea - RR > 20 breaths per minute or PaCO2 , 32mmHg
Source: Merck Manual 2012
Localized Infection (UTI) Only, Without Systemic Illness
Other
Use of terms such as suspected, likely, concern for, or probable (associated with a specific diagnosis that is being evaluated, monitored, or treated as if it exists) are acceptable and can be coded in the inpatient setting, when documented at the
time of discharge.
Thank you,
Nadine Lyman RN, BSN
CDI Specialist
[place] [facility]
Please use your independent medical judgment in providing your response.
[2024-09-27 15:45] VITALS: BP 123/56
[2024-09-27] MEDS: ARIMIDEX 1 MG PO (18:16)
[2024-09-27] MEDS: PROTONIX 40 MG PO (20:34)
[2024-09-27] MEDS: MIRALAX 17 GRAMS PO (20:34)
[2024-09-27] MEDS: ARICEPT 10 MG PO (20:34)
[2024-09-27 23:27] VITALS: BP 109/58
--- NOTE | 2024-09-28 00:59 | PTCARENOTE ---
AAO to self, garbled nonsensical speech. Patient restless and impulsive, at start of shift. Right IV site pulled out, new IV placed in left forearm, by IV team, at the bedside. Patient cooperative and sleeping, post evening medication
administration. IV zosyn continued, IV fluids discontinued. Patient is eating and drinking. OOB x 2 assist to the bedside commode. Patient is grossly incontinent, wearing attend brief. Q 2 hour turns for pressure injury reduction. Patient refused
SCDs for overnight. All patient needs met. Bed in lowest position. Bed alarm on. Call hernandez and personal belongings within reach. Anticipated discharge in 24 hours.
[2024-09-28] MEDS: ZOSYN 50 IV (03:58)
[2024-09-28 07:00] VITALS: BP 146/67
[2024-09-28 07:36] LABS: Hematocrit 33.8 % (37.0-47.0); Hemoglobin 11.6 g/dL (12.0-16.0); Mean Corp Hgb Conc. 34.3 g/dL (33.0-37.0); Mean Corpuscular Hgb 29.7 pg (27.0-31.0); Mean Corpuscular Volume 86.7 fL (81.0-99.0); Mean Platelet Volume 9.4 fL (7.4-10.4); Platelet Count 347 10^3/uL (130-400); Red Cell Dist. Width 13.1 % (11.5-14.5); White Blood Cell Count 17.3 10^3/uL (4.8-10.8)
[2024-09-28 08:01] LABS: Blood Urea Nitrogen 5 mg/dl (7-17); Calcium 8.6 mg/dl (8.4-10.2); Carbon Dioxide 24 mmol/L (22-30); Chloride 99 mmol/L (98-107); Glucose 95 mg/dl (70-99); Sodium 134 mmol/L (135-145); eGFR > 60.00
[2024-09-28] MEDS: NAMENDA 10 MG PO ×2 (08:25→19:32)
[2024-09-28] MEDS: HYZAAR 100-25 TABLET 1 TAB PO (08:25)
[2024-09-28] MEDS: PROTONIX PO ×3 (08:27→19:32)
[2024-09-28] MEDS: LIPITOR 10 MG PO (08:27)
[2024-09-28] MEDS: MIRALAX 17 GRAMS PO (08:27)
--- NOTE | 2024-09-28 09:22 | W.PN.HOSP.TC ---
Today's Communication/Plan
-
medically stable for dc to SNF pending bed/auth. CM aware.
Assessment / Plan
Assessment / Plan
Assessment:
Sepsis from UTI (tachycardia, leukocytosis)
Metabolic encephalopathy (from UTI) on chronic advanced, at least moderate degree, dementia
- mitts applied due to pulling wires; now removed
- no clear agitation just confused
- monitor mentation as treatment evolves
- continue Risperdal/Donepezil/Memantine when feasible
- regular diet per ST eval
Acute UTI
- leukocytosis; improving
- continue Augmentin day 4/5; culture mixed rashida
Acute vomiting with coffee grounds; concern for upper GI bleed
Hx of esophagitis, hiatal hernia (s/p surgery) and reflux/GERD
- continue PPI BID; daily at discharge
- CT also with constipation which might be contributing to upper GI symptoms
- s/p enema with multiple BMs. continue bowel regimen per GI
- continue Augmentin day 4/[address]
Essential hypertension
- continue losartan/hydrochlorothiazide
Hyperlipidemia
- continue statin
Breast cancer
- continue anastrozole
sacral tiny stage 2 PI - present on arrival
- follow wound care recs
DVT ppx: SCDs
Code: Full
dispo: medically stable for dc to SNF pending bed/auth. CM aware.
Anticipated Discharge: Within 24 hours
Subjective/Interval History
-
Date of Service: September 28, 2024
no complaints
more alert today
tolerating food/pills
Objective Data
-
Labs:
Laboratory Results
09/28/24
06:55
WBC 17.3 H
Hgb 11.6 L
Hct 33.8 L
Plt Count 347
Sodium 134 L
Potassium 3.0 L
Chloride 99
Carbon Dioxide 24
BUN 5 L
Creatinine 0.5 L
Glucose 95
Calcium 8.6
Vital Signs:
Vital Signs
Temp Pulse Resp BP Pulse Ox
98.1 F 80 16 146/67 96
09/27/24 23:27 09/28/24 08:25 09/27/24 23:27 09/28/24 08:25 09/27/24 23:27
I&O
09/27/24 09/28/24 09/29/24
06:59 06:59 06:59
Intake Total 2446 / 2446 480 / 480
Balance 2446 / 2446 480 / 480
Physical Exam
-
General: No Apparent Distress
HEENT: Normocephalic and Atraumatic
Respiratory: Negative Wheezes
Cardiac: Regular Rhythm and S1/S2
GI: Soft
Genito-urinary: No Costovertebral Tender
Psych: Calm and Apparent Dementia
Data Reviewed
-
Total Time Spent with Patient (in minutes): 42
Labs: Labs Reviewed by me
--- NOTE | 2024-09-28 10:29 | CM ---
CM reviewed chart, patient seen bedside with spouse. Spouse feels he is not able to provide care needed at home for patient at this time, asking for referrals to [facility], [facility], and [facility]. Update to Physician. CM will continue to
follow for all discharge planning needs.
Plan; referrals to [facility], and [facility].
[2024-09-28] MEDS: AUGMENTIN 875 MG/125 MG 1 TABLET PO ×2 (11:15→19:32)
[2024-09-28] MEDS: KCL 40 MEQ PO (11:15)
[2024-09-28] MEDS: RISPERDAL 1 MG PO (11:15)
[2024-09-28 15:00] VITALS: BP 102/52
[2024-09-28] MEDS: ARIMIDEX 1 MG PO (17:10)
[2024-09-28] MEDS: MIRALAX PO (18:49)
[2024-09-28] MEDS: ARICEPT 10 MG PO (19:32)
[2024-09-28 23:24] VITALS: BP 122/64
[2024-09-29 06:28] LABS: Hematocrit 31.8 % (37.0-47.0); Hemoglobin 10.9 g/dL (12.0-16.0); Mean Corp Hgb Conc. 34.3 g/dL (33.0-37.0); Mean Corpuscular Hgb 29.9 pg (27.0-31.0); Mean Corpuscular Volume 87.4 fL (81.0-99.0); Mean Platelet Volume 9.5 fL (7.4-10.4); Platelet Count 350 10^3/uL (130-400); Red Blood Cell Count 3.64 10^6/uL (4.20-5.40); Red Cell Dist. Width 12.9 % (11.5-14.5); White Blood Cell Count 12.7 10^3/uL (4.8-10.8)
[2024-09-29 07:00] VITALS: BP 171/81
[2024-09-29 07:03] LABS: Blood Urea Nitrogen 7 mg/dl (7-17); Calcium 8.6 mg/dl (8.4-10.2); Carbon Dioxide 27 mmol/L (22-30); Chloride 99 mmol/L (98-107); Glucose 127 mg/dl (70-99); Potassium 3.4 mmol/L (3.5-5.1); Sodium 133 mmol/L (135-145); eGFR > 60.00
[2024-09-29] MEDS: LIPITOR 10 MG PO (07:57)
[2024-09-29] MEDS: PROTONIX 40 MG PO (07:58)
[2024-09-29] MEDS: AUGMENTIN 875 MG/125 MG 1 TABLET PO ×2 (07:58→20:10)
[2024-09-29] MEDS: HYZAAR 100-25 TABLET 1 TAB PO (07:58)
[2024-09-29] MEDS: NAMENDA 10 MG PO ×2 (07:58→20:10)
[2024-09-29] MEDS: MIRALAX PO ×2 (07:59→20:08)
--- NOTE | 2024-09-29 09:42 | PTCARENOTE ---
Upon AM assessment, pt only oriented to self. RN administered AM medications in applesauce and pt had x1 episode of coffee ground emesis a few minutes afterwards. Hospitalist and GI physician notified. Orders placed to recheck H&H at 1300.
--- NOTE | 2024-09-29 11:30 | W.PN.GI.CBS2 ---
Today's Communication / Plan
-
Please see assessment and plan for details.
Assessment / Plan
-
1. Coffee-ground emesis: Likely related to Ruben's erosions or esophagitis given hiatal hernia and CT findings. Other etiologies including peptic ulcer disease or malignancy seem much less likely. Your hemoglobin has remained stable. At this
point I did have an extensive discussion with her and her . . We discussed that is reassuring that her hemoglobin has remained stable, her exam is benign and overall feeling okay. We discussed continuing PPI for now and observation. If
still episodes or not tolerating p.o. well then we will plan EGD Tuesday, sooner if signs of brisk active bleeding which there are none currently. If she is feeling great for the rest of the day and tomorrow then can hold on EGD Tuesday.
-
Subjective
Subjective
Date of Service: September 29, 2024
Called back to see patient given another episode of vomiting with coffee-ground emesis. Patient is feeling well now, denies any abdominal pain, has had no further nausea or vomiting. She has had no melena and did have bowel movements yesterday.
She denies any fever, chills, chest pain or shortness of breath.
Objective
Data Reviewed
Laboratory Data:
Laboratory Results
09/29/24 05:55
Laboratory Results
PT 13.4 Sec (11.4-14.6) 09/25/24 17:49
INR 0.99 09/25/24 17:49
Total Bilirubin 0.6 mg/dl (0.2-1.3) 09/26/24 08:29
AST 24 U/L (14-36) 09/26/24 08:29
ALT 14 U/L (0-35) 09/26/24 08:29
Alkaline Phosphatase 89 U/L (38-126) 09/26/24 08:29
Lipase 58 U/L (23-300) 09/25/24 17:38
Vital Signs and I&O:
Vital Signs
Temp Pulse Resp BP Pulse Ox
97.8 F 80 18 171/81 96
09/29/24 07:00 09/29/24 07:58 09/29/24 07:00 09/29/24 07:58 09/29/24 07:00
I&O
09/28/24 09/29/24 09/30/24
06:59 06:59 06:59
Intake Total 480 / 480 0 / 0
Balance 480 / 480 0 / 0
Physical Exam
Physical Exam
General: NAD
Abdomen: normal bowel sounds, soft, no tenderness, no masses or bruits, no ascites
[2024-09-29] MEDS: RISPERDAL 1 MG PO (11:48)
--- NOTE | 2024-09-29 12:39 | CM ---
tire manager continues to follow with patient and spoke with spouse and he is interested in skilled placement, referrals sent to [facility], [facility] and [facility], application form for [facility] provided to patient's
spouse.
Plan; Skilled placement.
--- NOTE | 2024-09-29 12:44 | W.PN.HOSP.TC ---
Today's Communication/Plan
-
Monitor hemoglobin if recurrent bleeding to consider EGD Tuesday
Assessment / Plan
Assessment / Plan
Assessment/Plan:
Severe sepsis with acute organ dysfunction
Patient meets sepsis criteria on admission
Acute organ dysfunction in the form of acute metabolic encephali
Tachycardia and leukocytosis.
Sepsis secondary to UTI
Continue Augmentin 11/05
Urine culture with mixed rashida possible contaminant
Leukocytosis continue to improve
Acute Metabolic encephalopathy (from UTI) on chronic advanced, at least moderate degree, dementia
- mitts applied due to pulling wires; now removed
- no clear agitation just confused
- monitor mentation as treatment evolves
- continue Risperdal/Donepezil/Memantine when feasible
- regular diet per ST eval
Coffee-ground emesis concern for upper GI bleed
Hx of esophagitis, hiatal hernia (s/p surgery) and reflux/GERD
- continue PPI BID; daily at discharge
- CT also with constipation which might be contributing to upper GI symptoms
- s/p enema with multiple BMs. continue bowel regimen per GI
09/29
Discussed with GI today.
If recurrent or drop in hemoglobin to consider EGD on Tuesday.
Discussed with .
Essential hypertension
- continue losartan/hydrochlorothiazide
Hyperlipidemia
- continue statin
Breast cancer
- continue anastrozole
sacral tiny stage 2 PI - present on arrival
- follow wound care recs
CODE STATUS: Full code
DVT prophylaxis: SCD
Diet: Regular diet
Anticipated Discharge: 24 - 48 hours
Subjective/Interval History
-
Date of Service: September 29, 2024
Patient seen and examined at bedside.
at bedside.
Patient is confused and cannot provide interval history, discussed with and her nurse Tamy, patient had episode of coffee-ground vomiting today morning.
Discussed with GI and will continue to monitor over the weekend if recurrent or drop in hemoglobin to consider EGD on Tuesday.
Objective Data
-
Labs:
Laboratory Results
09/29/24 09/29/24
05:55 13:00
WBC 12.7 H
Hgb 10.9 L Pending
Hct 31.8 L Pending
Plt Count 350
Sodium 133 L
Potassium 3.4 L
Chloride 99
Carbon Dioxide 27
BUN 7
Creatinine 0.4 L
Glucose 127 H
Calcium 8.6
Vital Signs:
Vital Signs
Temp Pulse Resp BP Pulse Ox
97.8 F 80 18 171/81 96
09/29/24 07:00 09/29/24 07:58 09/29/24 07:00 09/29/24 07:58 09/29/24 07:00
I&O
09/28/24 09/29/24 09/30/24
06:59 06:59 06:59
Intake Total 480 / 480 0 / 0
Balance 480 / 480 0 / 0
Physical Exam
-
General: Well Developed
HEENT: Normocephalic, Atraumatic, Moist Mucous Membranes, No Ptosis, PERRLA and Nose Appears Normal
Respiratory: Clear to Auscultation and Non Labored Respirations
Cardiac: Regular Rhythm and S1/S2
Breast: Deferred by me
GI: Soft, Nontender, Nondistended and Normal Bowel Sounds
Genito-urinary: No Costovertebral Tender
Musculoskeletal: No Clubbing, No Cyanosis and No Edema
Skin: Warm
Neuro: Other (Confused)
Psych: Confused
Data Reviewed
-
Diagnostic Radiology: Image personally visualized and interpreted and Report Reviewed by me
CT Scan: Image personally visualized and interpreted and Report Reviewed by me
Ultrasound: Image personally visualized and interpreted and Report Reviewed by me
MRI: Image personally visualized and interpreted and Report Reviewed by me
Medical Tests (Nuc Med, Echo etc): Image personally visualized and interpreted and Report Reviewed by me
Labs: Labs Reviewed by me
Old Records: Reviewed
[2024-09-29 13:07] LABS: Hematocrit 32.5 % (37.0-47.0); Hemoglobin 11.3 g/dL (12.0-16.0)
[2024-09-29 15:00] VITALS: BP 118/69
[2024-09-29] MEDS: ARIMIDEX 1 MG PO (17:34)
[2024-09-29] MEDS: PROTONIX PO ×2 (20:10→20:16)
[2024-09-29] MEDS: ARICEPT 10 MG PO (21:26)
[2024-09-29 23:43] VITALS: BP 152/78
[2024-09-30 07:10] VITALS: BP 137/70
[2024-09-30] MEDS: HYZAAR 100-25 TABLET 1 TAB PO (07:42)
[2024-09-30] MEDS: PROTONIX 40 MG PO ×2 (07:42→19:26)
[2024-09-30 07:43] LABS: Hematocrit 29.4 % (37.0-47.0); Mean Corpuscular Hgb 29.4 pg (27.0-31.0); Mean Corpuscular Volume 86.5 fL (81.0-99.0); Mean Platelet Volume 9.4 fL (7.4-10.4); Platelet Count 363 10^3/uL (130-400)
[2024-09-30] MEDS: MIRALAX PO ×2 (07:43→19:25)
[2024-09-30] MEDS: NAMENDA 10 MG PO ×2 (07:43→19:26)
[2024-09-30] MEDS: LIPITOR 10 MG PO (07:43)
[2024-09-30 08:08] LABS: Blood Urea Nitrogen 11 mg/dl (7-17); Calcium 8.2 mg/dl (8.4-10.2); Carbon Dioxide 26 mmol/L (22-30); Chloride 100 mmol/L (98-107); Glucose 113 mg/dl (70-99); Potassium 3.4 mmol/L (3.5-5.1); Sodium 134 mmol/L (135-145); eGFR > 60.00
[2024-09-30] MEDS: KCL ELIXIR 40 MEQ PO (09:09)
--- NOTE | 2024-09-30 09:40 | W.PN.GI.CBS2 ---
Today's Communication / Plan
-
Please see assessment and plan for details.
Assessment / Plan
-
1. Coffee-ground emesis: Likely related to Ruben's erosions or esophagitis given hiatal hernia and CT findings. Other etiologies including peptic ulcer disease or malignancy seem much less likely. Hemoglobin has remained stable. I again
discussed with her and her . We discussed that is reassuring that her hemoglobin has remained stable, her exam is benign and overall feeling okay. We discussed continuing PPI for now and observation. If still episodes or not tolerating
p.o. well then we will plan EGD Tuesday, sooner if signs of brisk active bleeding which there are none currently. If she is feeling great for the rest of the day then can hold on EGD Tuesday. Will reevaluate early tomorrow morning.
-
Subjective
Subjective
Date of Service: September 30, 2024
Patient feeling okay, no further episodes of vomiting, denies any abdominal pain, no nausea, no melena.
Objective
Data Reviewed
Laboratory Data:
Laboratory Results
09/30/24 07:04
09/30/24 07:04
Laboratory Results
PT 13.4 Sec (11.4-14.6) 09/25/24 17:49
INR 0.99 09/25/24 17:49
Total Bilirubin 0.6 mg/dl (0.2-1.3) 09/26/24 08:29
AST 24 U/L (14-36) 09/26/24 08:29
ALT 14 U/L (0-35) 09/26/24 08:29
Alkaline Phosphatase 89 U/L (38-126) 09/26/24 08:29
Lipase 58 U/L (23-300) 09/25/24 17:38
Vital Signs and I&O:
Vital Signs
Temp Pulse Resp BP Pulse Ox
98.8 F 85 20 137/70 95
09/30/24 07:10 09/30/24 07:42 09/30/24 07:10 09/30/24 07:42 09/30/24 07:10
I&O
09/29/24 09/30/24 10/01/24
06:59 06:59 06:59
Intake Total 0 / 0
Balance 0 / 0
Physical Exam
Physical Exam
General: NAD
Abdomen: normal bowel sounds, soft, no tenderness, no masses or bruits, no ascites
--- NOTE | 2024-09-30 12:46 | W.PN.HOSP.TC ---
Today's Communication/Plan
-
Consider EGD in a.m. if recurrent bleed
Assessment / Plan
Assessment / Plan
Assessment/Plan:
Severe sepsis with acute organ dysfunction
Patient meets sepsis criteria on admission
Acute organ dysfunction in the form of acute metabolic encephali
Tachycardia and leukocytosis.
Sepsis secondary to UTI
Complete 5 days of Augmentin.
Urine culture with mixed rashida possible contaminant
Leukocytosis improved but increased again to 14 today, will repeat in a.m.
Acute Metabolic encephalopathy (from UTI) on chronic advanced, at least moderate degree, dementia
- mitts applied due to pulling wires; now removed
- no clear agitation just confused
- monitor mentation as treatment evolves
- continue Risperdal/Donepezil/Memantine when feasible
- regular diet per
Coffee-ground emesis concern for upper GI bleed
Hx of esophagitis, hiatal hernia (s/p surgery) and reflux/GERD
- continue PPI BID; daily at discharge
- CT also with constipation which might be contributing to upper GI symptoms
- s/p enema with multiple BMs. continue bowel regimen per GI
09/29
Discussed with GI today.
If recurrent or drop in hemoglobin to consider EGD on Tuesday.
Discussed with .
09/30
No further bleeding, hemoglobin stable, n.p.o. after midnight if needed for EGD in a.m.
Essential hypertension
- continue losartan/hydrochlorothiazide
Hyperlipidemia
- continue statin
Breast cancer
- continue anastrozole
sacral tiny stage 2 PI - present on arrival
- follow wound care recs
CODE STATUS: Full code
DVT prophylaxis: SCD
Diet: Regular diet-n.p.o. after midnight
Total time spent on today's encounter was 55 minutes which included time spent in counseling the patient/family regarding diagnosis and treatment plan as listed above, goals of care, and symptom management. Case was discussed with nursing staff,
specialists, and care coordinators/case management. All labs and imaging personally reviewed by me. Remainder the time spent in detailed review of previous records, lab data, imaging, and other medical provider documentation.
Anticipated Discharge: 24 - 48 hours
Subjective/Interval History
-
Date of Service: September 30, 2024
Patient seen and examined at bedside.
at bedside.
No further coffee-ground emesis, seen by GI today if recurrent or drop in hemoglobin to consider EGD on Tuesday.
Objective Data
-
Labs:
Laboratory Results
09/30/24
07:04
WBC 14.0 H
Hgb 10.0 L
Hct 29.4 L
Plt Count 363
Sodium 134 L
Potassium 3.4 L
Chloride 100
Carbon Dioxide 26
BUN 11
Creatinine 0.5 L
Glucose 113 H
Calcium 8.2 L
Vital Signs:
Vital Signs
Temp Pulse Resp BP Pulse Ox
98.8 F 85 20 137/70 95
09/30/24 07:10 09/30/24 07:42 09/30/24 07:10 09/30/24 07:42 09/30/24 07:10
I&O
09/29/24 09/30/24 10/01/24
06:59 06:59 06:59
Intake Total 0 / 0
Balance 0 / 0
Physical Exam
-
General: Well Developed
HEENT: Normocephalic, Atraumatic, Moist Mucous Membranes, No Ptosis, PERRLA and Nose Appears Normal
Respiratory: Clear to Auscultation and Non Labored Respirations
Cardiac: Regular Rhythm and S1/S2
Breast: Deferred by me
GI: Soft, Nontender, Nondistended and Normal Bowel Sounds
Genito-urinary: No Costovertebral Tender
Musculoskeletal: No Clubbing, No Cyanosis and No Edema
Skin: Warm
Neuro: Other (Confused)
Psych: Confused
[2024-09-30] MEDS: RISPERDAL 1 MG PO (13:09)
[2024-09-30 15:00] VITALS: BP 98/58
[2024-09-30] MEDS: ARIMIDEX 1 MG PO (16:59)
--- NOTE | 2024-09-30 17:19 | TRANSFER ---
Report given to Lay LANDAVERDE, pt transferred from 423 to 417-1 on bed. at bedside.
[2024-09-30 17:32] VITALS: BP 107/62
--- NOTE | 2024-09-30 17:32 | PTCARENOTE ---
received report from luigi regarding patient. this nurse assisted in transferring patient from 423-1 to 417-1 on bed. remains at pt's bedside. assessment's remain unchanged
[2024-09-30] MEDS: ARICEPT 10 MG PO (21:18)
[2024-09-30 23:24] VITALS: BP 144/73
--- NOTE | 2024-10-01 06:20 | W.PN.GI.CBS2 ---
Today's Communication / Plan
-
Please see assessment and plan for details.
Assessment / Plan
-
1. Coffee-ground emesis: Likely related to Ruben's erosions or esophagitis given hiatal hernia and CT findings. Other etiologies including peptic ulcer disease or malignancy seem much less likely. Hemoglobin has remained stable. I again
discussed with her and her yesterday. We discussed that is reassuring that her hemoglobin has remained stable, her exam is benign and overall feeling okay. We discussed continuing PPI for now and observation. If morning hemoglobin is
stable then we will hold on endoscopy and restart diet. If drops and will plan EGD today.
-
Subjective
Subjective
Date of Service: October 01, 2024
No events overnight, no nausea or vomiting, no signs of bleeding. Patient denies any abdominal pain.
Objective
Data Reviewed
Laboratory Data:
Laboratory Results
PT 13.4 Sec (11.4-14.6) 09/25/24 17:49
INR 0.99 09/25/24 17:49
Total Bilirubin 0.6 mg/dl (0.2-1.3) 09/26/24 08:29
AST 24 U/L (14-36) 09/26/24 08:29
ALT 14 U/L (0-35) 09/26/24 08:29
Alkaline Phosphatase 89 U/L (38-126) 09/26/24 08:29
Lipase 58 U/L (23-300) 09/25/24 17:38
Vital Signs and I&O:
Vital Signs
Temp Pulse Resp BP Pulse Ox
98.0 F 80 18 144/73 99
09/30/24 23:24 09/30/24 23:24 09/30/24 23:24 09/30/24 23:24 09/30/24 23:24
I&O
09/29/24 09/30/24 10/01/24
06:59 06:59 06:59
Intake Total 0 / 0 120 / 120
Balance 0 / 0 120 / 120
Physical Exam
Physical Exam
General: NAD
Abdomen: normal bowel sounds, soft, no tenderness, no masses or bruits, no ascites
[2024-10-01 07:00] VITALS: BP 133/71
[2024-10-01 08:03] LABS: Mean Corp Hgb Conc. 34.5 g/dL (33.0-37.0); Mean Corpuscular Hgb 29.8 pg (27.0-31.0); Mean Corpuscular Volume 86.3 fL (81.0-99.0); Mean Platelet Volume 9.2 fL (7.4-10.4); Platelet Count 344 10^3/uL (130-400); Red Blood Cell Count 3.36 10^6/uL (4.20-5.40); Red Cell Dist. Width 13.1 % (11.5-14.5); White Blood Cell Count 11.7 10^3/uL (4.8-10.8)
--- NOTE | 2024-10-01 08:30 | W.PN.UPDATE ---
Update Note
Progress Note Update
Morning hemoglobin noted, stable, no further episodes. As discussed yesterday with patient and her will hold on endoscopy. Will advance diet. Continue PPI. We will sign off for now, please call back with any further questions.
[2024-10-01 08:46] LABS: Blood Urea Nitrogen 14 mg/dl (7-17); Calcium 8.5 mg/dl (8.4-10.2); Carbon Dioxide 24 mmol/L (22-30); Chloride 101 mmol/L (98-107); Glucose 109 mg/dl (70-99); Potassium 3.9 mmol/L (3.5-5.1); Sodium 133 mmol/L (135-145); eGFR > 60.00
[2024-10-01] MEDS: MIRALAX PO (09:43)
[2024-10-01] MEDS: PROTONIX 40 MG PO (09:53)
[2024-10-01] MEDS: NAMENDA 10 MG PO (09:53)
[2024-10-01] MEDS: LIPITOR 10 MG PO (09:53)
[2024-10-01] MEDS: HYZAAR 100-25 TABLET 1 TAB PO (09:57)
--- NOTE | 2024-10-01 10:17 | W.PN.HOSP.TC ---
Today's Communication/Plan
-
Discharge today
Assessment / Plan
Assessment / Plan
Assessment/Plan:
Severe sepsis with acute organ dysfunction
Patient meets sepsis criteria on admission
Acute organ dysfunction in the form of acute metabolic encephali
Tachycardia and leukocytosis.
Sepsis secondary to UTI
Completed 5 days of Augmentin.
Urine culture with mixed rashida possible contaminant
Leukocytosis improved but increased again to 14 today, will repeat in a.m.
Acute Metabolic encephalopathy (from UTI) on chronic advanced, at least moderate degree, dementia
- mitts applied due to pulling wires; now removed
- no clear agitation just confused
- monitor mentation as treatment evolves
- continue Risperdal/Donepezil/Memantine when feasible
- regular diet per ST
Coffee-ground emesis concern for upper GI bleed
Hx of esophagitis, hiatal hernia (s/p surgery) and reflux/GERD
- continue PPI BID; daily at discharge
- CT also with constipation which might be contributing to upper GI symptoms
- s/p enema with multiple BMs. continue bowel regimen per GI
09/29
Discussed with GI today.
If recurrent or drop in hemoglobin to consider EGD on Tuesday.
Discussed with .
09/30
No further bleeding, hemoglobin stable, n.p.o. after midnight if needed for EGD in a.m.
10/01
Stable hemoglobin.
No need for EGD
Cleared for discharge
Essential hypertension
- continue losartan/hydrochlorothiazide
Hyperlipidemia
- continue statin
Breast cancer
- continue anastrozole
sacral tiny stage 2 PI - present on arrival
- follow wound care recs
CODE STATUS: Full code
DVT prophylaxis: SCD
Diet: Regular diet.
Total time spent on today's encounter was 55 minutes which included time spent in counseling the patient/family regarding diagnosis and treatment plan as listed above, goals of care, and symptom management. Case was discussed with nursing staff,
specialists, and care coordinators/case management. All labs and imaging personally reviewed by me. Remainder the time spent in detailed review of previous records, lab data, imaging, and other medical provider documentation.
Anticipated Discharge: Today
Subjective/Interval History
-
Date of Service: October 01, 2024
Seen and examined at bedside.
at bedside.
Stable hemoglobin.
Discussed with GI, no need for EGD
Objective Data
-
Labs:
Laboratory Results
10/01/24
07:43
WBC 11.7 H
Hgb 10.0 L
Hct 29.0 L
Plt Count 344
Sodium 133 L
Potassium 3.9
Chloride 101
Carbon Dioxide 24
BUN 14
Creatinine 0.5 L
Glucose 109 H
Calcium 8.5
Vital Signs:
Vital Signs
Temp Pulse Resp BP Pulse Ox
98.3 F 80 16 133/71 95
10/01/24 07:00 10/01/24 07:00 10/01/24 07:00 10/01/24 07:00 10/01/24 07:00
I&O
09/30/24 10/01/24 10/02/24
06:59 06:59 06:59
Intake Total 120 / 120
Balance 120 / 120
Physical Exam
-
General: Well Developed
HEENT: Normocephalic, Atraumatic, Moist Mucous Membranes, No Ptosis, PERRLA and Nose Appears Normal
Respiratory: Clear to Auscultation and Non Labored Respirations
Cardiac: Regular Rhythm and S1/S2
Breast: Deferred by me
GI: Soft, Nontender, Nondistended and Normal Bowel Sounds
Genito-urinary: No Costovertebral Tender
Musculoskeletal: No Clubbing, No Cyanosis and No Edema
Skin: Warm
Neuro: Other (Confused)
Psych: Confused
--- NOTE | 2024-10-01 10:21 | W.DCSUMMARY ---
Discharge Summary
Discharge Data
Date of Admission: 09/25/24
Date of Discharge: 10/01/24
-
Pending Results: No
Hospital Course
Severe sepsis with acute organ dysfunction
Patient meets sepsis criteria on admission
Acute organ dysfunction in the form of acute metabolic encephali
Tachycardia and leukocytosis.
Sepsis secondary to UTI
Completed 5 days of Augmentin.
Urine culture with mixed rashida possible contaminant
Leukocytosis improved but increased again to 14 today, will repeat in a.m.
Acute Metabolic encephalopathy (from UTI) on chronic advanced, at least moderate degree, dementia
- mitts applied due to pulling wires; now removed
- no clear agitation just confused
- monitor mentation as treatment evolves
- continue Risperdal/Donepezil/Memantine when feasible
- regular diet per
Coffee-ground emesis concern for upper GI bleed
Hx of esophagitis, hiatal hernia (s/p surgery) and reflux/GERD
- continue PPI BID; daily at discharge
- CT also with constipation which might be contributing to upper GI symptoms
- s/p enema with multiple BMs. continue bowel regimen per GI
09/29
Discussed with GI today.
If recurrent or drop in hemoglobin to consider EGD on Tuesday.
Discussed with .
09/30
No further bleeding, hemoglobin stable, n.p.o. after midnight if needed for EGD in a.m.
10/01
Stable hemoglobin.
No need for EGD
Cleared for discharge
Essential hypertension
- continue losartan/hydrochlorothiazide
Hyperlipidemia
- continue statin
Breast cancer
- continue anastrozole
sacral tiny stage 2 PI - present on arrival
- follow wound care recs
CODE STATUS: Full code
DVT prophylaxis: SCD
Diet: Regular diet.
Total time spent on today's encounter was 40 minutes which included time spent in counseling the patient/family regarding diagnosis and treatment plan as listed above, goals of care, and symptom management. Case was discussed with nursing staff,
specialists, and care coordinators/case management. All labs and imaging personally reviewed by me. Remainder the time spent in detailed review of previous records, lab data, imaging, and other medical provider documentation.
Anticipated Discharge: Today
Discharge Plan
-
Patient Disposition: Group Home/SNF
Discharge Diagnosis/Procedures: constipation with reflux/esophagitis, UTI, upper GI bleed
Condition: Good
Diet: Regular
Activity: As tolerated
Blood Work: CBC after 1 week
Other Services: VN, PT and OT
Activity Restrictions/Additional Instructions:
Wound Care Instructions
Sacrum: clean with soap and water, skin prep periwound, sacral silicone foam change q 2-3 days and prn soilage.
Referrals:
Adriana Newton MD [Family Provider] - in one week
Prescriptions:
New
sennosides [Elsy-jone] 8.6 mg Tablet
17.2 mg PO HSPRN Qty: 0 0RF
polyethylene glycol 3350 17 gram Powder In Packet
17 g PO DAILYPRN Qty: 0 0RF
pantoprazole 40 mg Tablet,Delayed Release (Dr/Ec)
40 mg PO BID Qty: 0 0RF
Continued
anastrozole 1 mg Tablet
1 mg PO QPM
donepezil 10 mg Tablet
10 mg PO HS
losartan-hydrochlorothiazide 100-25 mg Tablet
1 tab PO DAILY
simvastatin 20 mg Tablet
20 mg PO DAILY
risperidone 1 mg Tablet
1 mg PO NOON
memantine 10 mg Tablet
10 mg PO BID
Discontinued
omeprazole 40 mg Capsule,Delayed Release(Dr/Ec)
40 mg PO DAILY
Discharge Orders:
Discharge Patient (As Directed); Ordered 10/01/24
Ordered By: Alyssa Kathleen
Discharge Date and Time
Print Language: TAMAZIGHT
--- NOTE | 2024-10-01 11:43 | CM ---
Chart reviewed. Spouse interested in skilled placement for patient as recommended. CM spoke w/ patient's spouse to review placement referrals.
Spoke w/ [facility] who is able to accept patient today. Requesting COVID test and 3:30 or later transport time
[facility] but is agreeable to [facility]
Patient will need ambulance transport, forms on chart
IMM verbally reviewed, spouse given copy, copy placed on chart
[facility]
Report: [phone]

Plan: [facility]. Ambulance transport. Await COVID results
[2024-10-01] MEDS: RISPERDAL 1 MG PO (12:43)
[2024-10-01 13:18] LABS: COVID-19 Antigen Negative (Negative)
[2024-10-01 15:00] VITALS: BP 132/73
== END 2024-10-01 16:29 | DRG 871 ==
LOC: 4 WEST ACU 22:53
PROVIDERS: Internal Medicine; Physician Assistant; ADMITTING PHYSICIAN Hospitalist; ATTENDING PHYSICIAN General Practice; CONSULT PHYSICIAN Internal Medicine Gastroenterology; EMERGENCY PHYSICIAN Emergency Medicine; FAMILY PHYSICIAN Family Medicine
DX: A41.9 Sepsis, unspecified organism (principal); G93.41 Metabolic encephalopathy; N39.0 Urinary tract infection, site not specified; F03.C18 Unspecified dementia, severe, with other behavioral disturbance; K56.7 Ileus, unspecified; R65.20 Severe sepsis without septic shock; K21.00 Gastro-esophageal reflux disease with esophagitis, without bleeding; L89.152 Pressure ulcer of sacral region, stage 2; K52.9 Noninfective gastroenteritis and colitis, unspecified; I10 Essential (primary) hypertension; E78.00 Pure hypercholesterolemia, unspecified; Z85.3 Personal history of malignant neoplasm of breast; Z79.811 Long term (current) use of aromatase inhibitors; E87.6 Hypokalemia; Z86.0100 Personal history of colon polyps, unspecified; R13.10 Dysphagia, unspecified; Z87.891 Personal history of nicotine dependence; Z96.653 Presence of artificial knee joint, bilateral; Z11.52 Encounter for screening for COVID-19
CPT/HCPCS: 74177; 80048; 80053; 81003; 81015; 83690; 85014; 85018; 85025; 85027; 85610; 86850; 86900; 86901; 87086; 87811; 92526; 92610; 93005; 96361; 96374; 96375; 97163; 97167; 97530; 99285; Q9967

== ENCOUNTER 2024-10-06 22:29 | Inpatient (IN) | payer MEDICARE, OTHER, SELFPAY ==
[2024-10-06] VITALS (7 sets, daily range): BP systolic 91–106; BP diastolic 53–78; BMI 21.2; BMI 20.3
--- NOTE | 2024-10-06 18:43 | ED.GENMED ---
History of Present Illness
General
Chief Complaint: Change in Mental Status
Source: mcc
Exam Limitations: clinical condition and dementia
Time Seen by Provider: 10/06/24 18:16
History of Present Illness
History of Present Illness:
78-year-old female apparently has had some deterioration over the last 24 to 48 hours. Nonverbal but usually more alert. Very lethargic today. No other history available
Past History
Past History
ED Past Medical History: HTN, Hypercholesterolemia and Other (Dementia)
ED Past Surgical History: Gynecological (Lumpectomy/hemorrhoidectomy) and Orthopedic
Review of Systems
Review of Systems
Unable to obtain full review of systems at this time due to: dementia
All Other Systems: Not applicable
Phy Exam
Physical Exam
Physical Exam:
GENERAL: Eyes closed lethargic. Does not follow commands. Will not open her eyes. Does withdraw to pain and stimuli however
EYE: Orbits normal.
NECK: Supple, no significant adenopathy.
ENT: Pharynx without erythema
CARDIAC: Regular rate and rhythm without any obvious murmurs.
LUNGS: Clear breath sounds,normal
ABDOMEN: Soft, without focal tenderness or distention
NEUROLOGICAL: Lethargic. Nonfocal.
SKIN: Warm and dry, no rash or lesion, no discoloration, skin intact.
MUSCULOSKELETAL: No edema,no deformity.Good color
Sepsis
Sepsis Screening
Sepsis Assessment: Sepsis
Sepsis Screen
Sepsis Screen: Sepsis
Date: 10/07/24
Time: 16:57
Course
Orders/Labs/Results
Orders:
Orders
10/06/24 18:22
Electrocardiogram (*1) Urgent
Reason for Study: Other
Other Reason for Exam: sepsis
CT Head W/o Iv Contrast Urgent
Comment:
Reason For Exam: Change in mental status
EKG- Treatment ONCE
IV Insert/Care/Rem.- Treatment PRN
Straight cath- Treatment ONCE
CR Chest Portable - 1 View Urgent
Comment:
Reason For Exam: Change in mental status/fever
Reason Study Needs to be Portable: Patient Unstable
10/06/24 18:40
Basic Metabolic Panel Urgent
COVID-19 Antigen Urgent
Source: Nasal Swab
Complete Blood Count/With Diff Urgent
Urinalysis Reflex To Culture Urgent
Date Specimen was Collected: 10/06/24
Time Specimen was Collected: 18:28
Urine Microscopic Reflex Cult Urgent
Blood Culture Q30M
KORI Source: Blood/Venous
Specimen Description:
Influenza A+B Rapid Molecular Urgent
KORI Source: Nasal Swab
Specimen Description:
Urine Culture Urgent
KORI Source: U
Specimen Description:
Date Specimen was Collected: 10/06/24
Time Specimen was Collected: 18:28
Comment: ADD ON
10/06/24 19:40
Blood Culture Q30M
KORI Source: Blood/Venous
Specimen Description:
10/06/24 21:08
Acetaminophen [Tylenol/Feverall] 650 mg .ROUTE .STK-MED ONE
10/06/24 21:09
Acetaminophen [Tylenol/Feverall] 650 mg RECTAL NOW STA
10/06/24 21:38
CefTRIAXone [Rocephin] 1,000 mg IV NOW STA
10/06/24 21:39
Add On - Microbiology Urgent
Tests Added?: urine culture
10/06/24 21:44
Admit/Transfer Patient As Directed
Co-Sign Provider:
Level of Care: Inpatient admission
Assign to:: Telemetry
Physician / Group: qi
Diagnosis: SIRS
Reason for Telemetry: Other
Other Reason for Telemetry: hypotension
Date to Stop Telemetry: 10/08/24
Time to Stop Telemetry: 11:00
Reason for Hospitalization: SIRS
Expected length of stay greater than two midnights?: Yes
ELOS- Estimated Length of Stay in days: 3
I certify the patient meets the requirements for IP care: Yes
PRN Pain Medication Management As Directed
May give lesser potent ordered pain med per pt: Yes
preference::
Protocol:: Medication orders for pain may be administered in a
manner that supports deferring to patient preference
when the pt is:
- Requesting an ordered lesser potent pain medication.
Least to most potent pain medications are defined
as: acetaminophen < NSAID < tramadol < opioids
(morphine, oxycodone, hydromorphone).
- Requesting a lesser dose of the same medication IF
ORDERED.
- Requesting a less intrusive route of administration
if both routes are prescribed by the provider (PO <
IV).
10/06/24 21:45
Code Status As Directed
Resuscitation Status: Full Code
0.9% Sodium Chloride 1000 ml [Nss] 1,000 ml IV 100 mls/hr
10/06/24 21:50
Sterile Water [Sterile Water For Injection] 10 ml IV NOW STA
10/07/24 00:06
Acetaminophen [Tylenol] 650 mg PO Q4HPRN PRN
Bisacodyl [Dulcolax] 10 mg RECTAL [id number] PRN
CefTRIAXone [Rocephin] 1,000 mg IV Q24H
Docusate W/Senna [Senokot-S] 1 tablet PO BIDPRN PRN
Donepezil HCl [Aricept] 10 mg PO HS
Polyethylene Glycol Powder [Miralax] 17 grams PO DAILYPRN PRN
10/07/24 00:06
Activity As Directed
Activity Level: As Tolerated
Pneumatic Compression Sleeves As Directed
Type: Knee high
Vital Signs As Directed
Frequency: Per unit guidelines
DX Deep Vein Thrombosis Video Routine
10/07/24 Breakfast
Regular
At Your Request: Full Participation
Does patient need a safe tray?: No
Occupational Therapy Consult [Ot Eval And Treat] IN AM
Physical Therapy Consult [Pt Eval And Treat] IN AM
Activity Level: As Tolerated
10/07/24 06:03
Complete Blood Count/No Diff IN AM
10/07/24 08:00
Memantine HCl [Namenda] 10 mg PO BID
Pantoprazole [Protonix] 40 mg PO BID
10/07/24 18:00
Anastrozole [Arimidex] 1 mg PO QPM
Enoxaparin Sodium [Lovenox] 40 mg SC QPM
10/08/24 06:00
Complete Blood Count/No Diff IN AM
10/08/24 11:00
DC Protocol for Telemetry ONCE
10/09/24 06:00
Complete Blood Count/No Diff IN AM
10/10/24 06:00
Complete Blood Count/No Diff IN AM
Abnormal Lab Results
10/06/24
18:40
WBC 21.3 H 10^3/uL
(4.8-10.8)
RBC 3.48 L 10^6/uL
(4.20-5.40)
Hgb 10.3 L g/dL
(12.0-16.0)
Hct 30.5 L %
(37.0-47.0)
Plt Count 490 H D 10^3/uL
(130-400)
Abs Immat Gran (auto) 0.2 H 10^3/uL
(0-0.05)
Absolute Neuts (auto) 18.5 H 10^3/uL
(1.4-6.5)
Absolute Lymphs (auto) 1.0 L 10^3/uL
(1.2-3.4)
Absolute Monos (auto) 1.5 H 10^3/uL
(0.1-0.6)
Immature Gran % 0.8 H %
(0-0.5)
Neutrophils % 87.1 H %
(42.2-75.2)
Lymphocytes % 4.9 L %
(20.5-51.1)
BUN 30 H mg/dl
(7-17)
Glucose 134 H mg/dl
(70-99)
Urine Albumin (Reflex) 2+ A
(Neg - Trace)
10/06/24 18:40
10/06/24 18:40
Vital Signs
Initial and Last Documented VS:
Initial Vital Signs
Temp Pulse Resp BP Pulse Ox
101 F H 96 18 103/62 98
10/06/24 18:17 10/06/24 18:17 10/06/24 18:17 10/06/24 18:17 10/06/24 18:17
Last Documented Vital Signs
Temp Pulse Resp BP Pulse Ox
97.7 F 84 16 123/76 99
10/07/24 13:50 10/07/24 13:50 10/07/24 13:50 10/07/24 13:50 10/07/24 13:50
MDM/Problems Addressed
Differential Diagnosis Includes:
Fever/lethargy workup in progress. Search for bacterial etiology. UTI. No pneumonia. No respiratory symptoms. COVID flu pending. Tried to contact the but the phone was not connected
*Pulse Oximetry
Patient hypoxic: no
*Critical Care Note
Total Time (30-74mins, 75-104mins- exclusive of procedures): Not Applicable
Data Reviewed
Review of Other/Old Records Reveals: Labs, Records, Testing and Discharge Summary
ED Attending Note
-
Portions of this chart may have been created with voice recognition software.� Occasional wrong word or��sound alike� substitutions may have occurred due to the inherent limitations of voice recognition software.
Discharge Plan
Departure
Patient Disposition: Admit
Date of Disposition: 10/06/24
Time of Disposition: 20:48
Presentation/result/management discussed w/ accepting MD/DO: Hospitalist
Discharge Problem:
Fever change in mental status leukocytos
Interventions
Interventions:
*Risk Screen - Suicide Last Done: 10/06/24 18:58
*General Assessment Last Done: 10/06/24 18:58
*Neglect/Abuse Screening Last Done: 10/06/24 18:58
*ED- Fall Risk Assessment Last Done: 10/06/24 18:58
*ED COVID-19 Vaccine History Last Done: 10/06/24 18:58
*Nursing Disposition Last Done: 10/06/24 23:54
ED- Pulmonary Assessment Last Done: 10/06/24 23:54
ED-Psychological Assessment Last Done: 10/06/24 23:54
ED- Neurological Assessment Last Done: 10/06/24 19:00
ED- Cardiac Assessment Last Done: 10/06/24 23:54
Discharge Date and Time
Discharge Date/Time: 10/06/24 23:55
[2024-10-06 18:47] LABS: % Basophils 0.2 % (0-2); % Immature Granulocytes 0.8 % (0-0.5); % Lymphocytes 4.9 % (20.5-51.1); % Neutrophils 87.1 % (42.2-75.2); Absolute Immature Granulocytes 0.2 10^3/uL (0-0.05); Absolute Monocytes 1.5 10^3/uL (0.1-0.6); Absolute Neutrophils 18.5 10^3/uL (1.4-6.5); Hematocrit 30.5 % (37.0-47.0); Hemoglobin 10.3 g/dL (12.0-16.0); Mean Corp Hgb Conc. 33.8 g/dL (33.0-37.0); Mean Corpuscular Hgb 29.6 pg (27.0-31.0); Mean Corpuscular Volume 87.6 fL (81.0-99.0); Mean Platelet Volume 8.9 fL (7.4-10.4); Nucleated Red Blood Cells % 0 %; Platelet Count 490 10^3/uL (130-400); Red Blood Cell Count 3.48 10^6/uL (4.20-5.40); Red Cell Dist. Width 13.3 % (11.5-14.5); Urine Albumin 2+ (Neg - Trace); Urine Bilirubin Negative (Negative); Urine Character Clear (Clear); Urine Color Yellow; Urine Glucose Negative (Negative); Urine Ketone Negative (Negative); Urine Leukocyte Negative (Negative); Urine Nitrite Negative (Negative); Urine Occult Blood Negative (Negative); Urine Specific Gravity 1.015 (<1.030); Urine Urobilinogen Negative (Neg - 1+); Urine pH 6.5 (5.0-9.0); White Blood Cell Count 21.3 10^3/uL (4.8-10.8)
[2024-10-06 19:01] LABS: Blood Urea Nitrogen 30 mg/dl (7-17); Carbon Dioxide 28 mmol/L (22-30); Chloride 103 mmol/L (98-107); Estimated Creatinine Clearance 55 ml/min; Glucose 134 mg/dl (70-99); Potassium 3.7 mmol/L (3.5-5.1); Sodium 139 mmol/L (135-145); eGFR > 60.00
[2024-10-06 19:10] LABS: COVID-19 Antigen Negative (Negative)
[2024-10-06 19:28] LABS: Urine Red Blood Cell 0-2 /HPF (0-2); Urine Squamous Cell 0-2 /LPF (Few); Urine White Cell 0-2 /HPF (0-5)
--- NOTE | 2024-10-06 20:51 | EDRN ---
Updated on things,he is heading home, phone number for him ( Eduardo) [phone]
[2024-10-06] MEDS: TYLENOL/FEVERALL 650 MG RECTAL (21:09)
--- NOTE | 2024-10-06 21:13 | HPS.HSE ---
Addendum entered and electronically signed by Irving Morton DO 10/06/24 22:45:
Patient seen and examined independently. Agree with findings and plan as set forth by ARMANDO Dunne.
Patient is an 78y F with PMH significant for dementia / non-verbal at baseline who was sent to ED from local [place] for evaluation of increased lethargy and fever. Patient recently admitted with fever / leukocytosis and treated with Augmentin x 5
days for suspected UTI (though culture was contaminated). Discharged to SNF where she has reportedly gradually declined since that time. No noted focal symptoms, vomiting, dyspnea, cough, etc.
Has fever to 101 in the ED and recurrent leukocytosis to 20k.
Ass:
Fever / Leukocytosis
Benign Hypertension
Non-Verbal Dementia
History of Breast Cancer
Plan:
Admit for further evaluation and treatment.
Empiric abx for now pending culture data.
Monitor for any evidence of focal complaints / symptoms.
Consider CT A/P if no source identified / fevers persist.
ID evaluation for additional recommendations.
Follow fever curve.
IVFs / supportive care.
Original Note:
Family Physician
-
Family Physician: Fili Celis MD
Chief Complaint
-
confusion
lethargy, fever
History of Present Illness
78 year old with PMH for GERD, Dementia, HTN, HLD presented with fever, lethargic for past few days. she has not been feeling since the discharge from hospital with UTI. patient is confused and not able to provide any history. today she was not
responding and had a fever of 101 at [place].
UA, chest x ray , Head CT negative. blood culture sent from ER
BP soft in ER.admitting for further management.
patient was recently admitted with GI bleed and sepsis sec to UTI was on Augmentin
Medical History
Past Medical History
Past Medical History: Reports Other
Additional Past Medical History:
GERD
HTN
HLD
Dementia
Past Surgical History: Reports Other
Additional Past Surgical History:
knee replacement
left knee surgery
hemorrhoidectomy
Social History
Unable to obtain full social history at this time due to: Dementia
Family History
Family History: Not pertinent
Allergies / Home Medications
Allergies reflects when Allergies were last updated in [employer].
Home Medications with original date entered in [employer]
Allergy/Medication List:
Allergies
Allergy/AdvReac Type Severity Reaction Status Date / Time
No Known Allergies Allergy Verified 09/25/24 17:44
Home Medications
anastrozole 1 mg tablet 1 mg PO QPM Cancer 09/25/24
donepezil 10 mg tablet 10 mg PO HS Neurological Condition 09/25/24
losartan 100 mg-hydrochlorothiazide 25 mg tablet 1 tab PO DAILY Blood Pressure 09/25/24
memantine 10 mg tablet 10 mg PO BID Neurological Condition 09/25/24
simvastatin 20 mg tablet 20 mg PO DAILY High Cholesterol 09/25/24
pantoprazole 40 mg tablet,delayed release 40 mg PO BID #0 tabs 10/01/24
Review of Systems
-
Unable to obtain full review of systems at this time due to: Dementia
Physical Exam
Vital Signs
Vital Signs
Temp Pulse Resp BP Pulse Ox
101 F H 89 17 103/78 97
10/06/24 18:17 10/06/24 19:30 10/06/24 19:30 10/06/24 19:00 10/06/24 19:15
Physical Exam
General: Well Developed, Well Nourished and No Apparent Distress
HEENT: NormoCephalic, Moist mucous membranes and Atraumatic
Respiratory: Clear
Cardiac: S1/S2 and Regular Rhythm; No Murmur or Rub
GI: Soft, Non Tender, Non Distended and Normal Bowel Sounds; No Organomegaly
Rectal: Deferred by Provider
Musculoskeletal: No Clubbing, No Cyanosis and No Edema
Skin: No Rash
Neuro: Nonfocal/grossly intact
Laboratory Results
-
10/06/24 18:40
10/06/24 18:40
Data Reviewed
-
Diagnostic Radiology: Report Reviewed by me
CT Scan: Report Reviewed by me
Lab Data: Labs Reviewed by me
Impression/Plan
-
#Lethargy, fever unclear cauase
#recent UTI
- SIRS as evident by wbc 21.3, fever
-UA,covid negative, COVID negative
-head CT negative
-chest x ray negative
-blood culture sent from ER
-will sent urine culture
-ceftriaxone added
-fluids to manage blood pressure
#hxt of recent upper GI bleed
-PPI continued
-hgb stable
#Essential hypertension
-patient is hypotensive in ER
-hold losartan-hctz
#Dementia
-memantine continued
Hyperlipidemia
- continue statin
Breast cancer
- continue anastrozole
CODE STATUS: Full code
DVT prophylaxis: lovenox
Diet: Regular diet.
--- NOTE | 2024-10-06 21:40 | EDRN ---
Patient rolled to check temp and give rectal tylenol, patient is dry at the moment, purwick placed, hospitalist at bedside working on admission orders as well.
[2024-10-06] MEDS: STERILE WATER FOR INJECTION 10 ML IV (22:03)
[2024-10-06] MEDS: ROCEPHIN 1000 MG IV (22:03)
[2024-10-06] MEDS: NSS 1000 IV (22:03)
--- NOTE | 2024-10-06 22:15 | EDRN ---
Patient remains asleep at this time, will continue to monitor
[2024-10-07] VITALS (8 sets, daily range): BP systolic 78–130; BP diastolic 57–76
[2024-10-07] MEDS: ARICEPT PO (04:11)
[2024-10-07] MEDS: ROCEPHIN 1000 MG IV (05:31)
[2024-10-07] MEDS: NSS 1000 IV ×2 (05:45→15:50)
[2024-10-07 06:42] LABS: Hematocrit 27.6 % (37.0-47.0); Hemoglobin 9.2 g/dL (12.0-16.0); Mean Corp Hgb Conc. 33.3 g/dL (33.0-37.0); Mean Corpuscular Hgb 29.2 pg (27.0-31.0); Mean Corpuscular Volume 87.6 fL (81.0-99.0); Mean Platelet Volume 9.5 fL (7.4-10.4); Platelet Count 436 10^3/uL (130-400); Red Blood Cell Count 3.15 10^6/uL (4.20-5.40); Red Cell Dist. Width 13.2 % (11.5-14.5); White Blood Cell Count 14.9 10^3/uL (4.8-10.8)
[2024-10-07] MEDS: NAMENDA PO (09:13)
[2024-10-07] MEDS: LIPITOR PO (09:13)
[2024-10-07] MEDS: PROTONIX PO ×2 (09:14→21:08)
--- NOTE | 2024-10-07 09:15 | PTCARENOTE ---
Pt. lethargic, responds to painful stimuli only. Pt. unable to take PO medications at this time.
--- NOTE | 2024-10-07 10:30 | W.PN.HOSP.TC ---
Today's Communication/Plan
-
see plan
Assessment / Plan
Assessment / Plan
Gen: NAD, NCAT
Eyes: EOMI, PERRLA, no scleral icterus.
Neck: Moderate nuchal rigidity. When attempts are made to flex the neck nuchal rigidity is more pronounced.
CV: RRR, +S1/S2, no m/r/g.
Resp: CTAB, no rales, wheezes, or rhonchi.
Abd: +BS, soft, NT, ND
Skin: No rashes.
Neuro: Moans during neck exam
Psych: Calm
CT Brain: No acute intracranial abnormality noted.
CXR: No acute cardiopulmonary process.
SIRS:
-presented with fever/lethargy/leukocytosis
-U/A not suggestive of infection
-COVID/Flu NEG
-Imaging above and unremarkable
-Currently on empiric Rocephin
-unclear why UCx sent with NEG U/A
-follow BCxs
-Leukocytosis improving
-cont IVFs
-with nuchal rigidity check LP, c/s ID
Other problems:
h/o recent upper GI bleed: cont PPI, Hb stable
Essential hypertension: Holding losartan-HCTZ with hypotension
Dementia: cont memantine
Hyperlipidemia: continue statin
Breast cancer: continue anastrozole
Patient's updated at bedside.
Discussed with interventional radiology and infectious disease.
FULL/Lovenox
Total time spent on today's encounter was 50 minutes which included time spent in counseling the patient/family regarding diagnosis and treatment plan as listed above, goals of care, and symptom management. Case was discussed with nursing staff,
specialists, and care coordinators/case management. All labs and imaging personally reviewed by me. Remainder the time spent in detailed review of previous records, lab data, imaging, and other medical provider documentation.
Anticipated Discharge: > 48 hours
Subjective/Interval History
-
Date of Service: October 07, 2024
Patient currently encephalopathic.
Objective Data
-
Labs:
Laboratory Results
10/07/24
06:03
WBC 14.9 H
Hgb 9.2 L
Hct 27.6 L
Plt Count 436 H
Vital Signs:
Vital Signs
Temp Pulse Resp BP Pulse Ox
98.3 F 78 18 130/68 99
10/07/24 07:50 10/07/24 07:50 10/07/24 07:50 10/07/24 07:50 10/07/24 07:50
[2024-10-07 12:37] LABS: INR 1.13; PT 14.8 Sec (11.4-14.6)
--- NOTE | 2024-10-07 13:52 | CON.ID ---
Consultation
-
Date/Time Consultation Requested: 10/07/2024 1128
Date/Time Consultation Performed: 10/07/2024 1340
Requesting Provider: Dr. Mcelroy
Performing Provider: Dr. Cheung
Reason for Consultation: Encephalopathy; suspected meningitis
Chief Complaint / Past History
History of Present Illness
Mahogany Vuong is an 78-year-old female being evaluated at the request of Dr. Mcelroy in regards to encephalopathy and possible meningitis. History is obtained from chart review alone as the patient cannot provide any significant history for me.
The patient has a significant past medical history of dementia, and presents to the ER here at [facility] yesterday secondary to reported 24 to 48 hours of lethargy. According to reviewed notes, the patient has been in inpatient from 09/25
through 10/01. [facility] and worked up for a change in mental status. At that time she was found to have a white count of 18,000 and a review of records indicate that she had had approximately 1 month of urinary incontinence. She was
placed on empiric antibiotics (Augmentin) and finished a 5-day course. She presents back following recurrence of lethargy. In triage she was found to be febrile to 101 degrees, and she has been noted to have a leukocytosis. Additionally, physical
exam indicated nuchal rigidity and she is currently status post lumbar puncture, with results pending.
No further history is available from the patient at this time.
Past History
Additional Past Medical History:
Hx breast CA
Dementia
HTN
HLD
GERD
Hiatal hernia
Additional Past Surgical History:
Lumpectomy
Allergy History:
No Known Allergies Allergy (Verified 09/25/24 17:44)
Medications Reviewed: Yes
Current Antibiotics:
Ceftriaxone 1 g IV every 24 hours
Social History
Tobacco: Non-Smoker
Alcohol: None
Drug: None
Personal:
Living: With Family
Employment: Retired
Family History
Family History: Not Pertinent
Review of Systems
Vital Signs
Temp Pulse Resp BP Pulse Ox
98 F 78 16 108/66 100
10/07/24 12:22 10/07/24 12:22 10/07/24 12:22 10/07/24 12:22 10/07/24 12:22
Physical Exam
Physical Exam
Constitutional: Acutely Ill and Non-toxic
Head: Normocephalic
Eyes: Pupils Equal, Pupils Round, No Conjunctival Hemorrhage and Sclera Anicteric
Oral: No Thrush and No Ulcers
Cardiovascular: S1/S2; Negative S3/S4 or Murmur
Pulmonary: Non Labored; Negative Wheezes or Rales
Gastrointestinal: Soft, Non Tender, Non Distended and Normal Bowel Sounds
Extremities: Negative Edema, Cyanosis or Erythema
Neurological: Awake, Meningeal Signs (Nuchal rigidity present.) and Other (Responsive to voice. Can answer yes/no questions.)
Psychological: Confused
Lab / Diagnostic Study Results
10/07/24 06:03
10/06/24 18:40
Abs Immat Gran (auto) 0.2 10^3/uL (0-0.05) H 10/06/24 18:40
Absolute Neuts (auto) 18.5 10^3/uL (1.4-6.5) H 10/06/24 18:40
Absolute Lymphs (auto) 1.0 10^3/uL (1.2-3.4) L 10/06/24 18:40
Absolute Monos (auto) 1.5 10^3/uL (0.1-0.6) H 10/06/24 18:40
Absolute Basos (auto) 0.0 10^3/uL (0-0.2) 10/06/24 18:40
Immature Gran % 0.8 % (0-0.5) H 10/06/24 18:40
Neutrophils % 87.1 % (42.2-75.2) H 10/06/24 18:40
Lymphocytes % 4.9 % (20.5-51.1) L 10/06/24 18:40
Monocytes % 7.0 % (1.7-9.3) 10/06/24 18:40
Eosinophils % 0.0 % (0-6) 10/06/24 18:40
Basophils % 0.2 % (0-2) 10/06/24 18:40
PT 14.8 Sec (11.4-14.6) H 10/07/24 12:14
INR 1.13 10/07/24 12:14
Ur Squamous Epith Cells 0-2 /LPF (Few) 10/06/24 18:40
Microbiology Results
Micro:
10/07/24 13:00 CSF Culture - Pending
Csf Gram Stain - Pending
10/07/24 13:00 Meningitis/Encephalitis Panel (PCR) - Pending
Csf
10/06/24 19:40 Blood Culture - Pending
Blood/Venous
10/06/24 18:40 Urine Culture - Pending
Urine
10/06/24 18:40 Influenza Types A & B (DAVID) - Final
Nasal Swab Negative for Influenza A & B, NAAT
Negative results must be combined with clinical observations
and patient history.
Nucleic Acid Amplification test (NAAT)performed on the
[employer] platform.
10/06/24 18:40 Blood Culture - Pending
Blood/Venous
Meningitis Panel, CSF by PCR 10/07/24-1505
Escherichia coli K1 Not Detected
Haemophilus influenzae Not Detected
Listeria monocytogenes Not Detected
Neisseria meningitidis Not Detected
Cytomegalovirus (CMV) Not Detected
Streptococcus agalactiae Not Detected
Streptococcus pneumoniae Not Detected
Enterovirus Not Detected
Herpes simplex virus 1 Not Detected
Herpes simplex virus 2 Not Detected
Human herpesvirus 6 Not Detected
Human parechovirus Not Detected
Varicella zoster virus Not Detected
C. neoformans/gattii Not Detected
Imaging:
10/06/2024 CT head without contrast: No acute intracranial abnormality noted. Ventricles are normal in size, configuration and position for age. No intra or extra-axial mass, hemorrhage or fluid collection noted. Please see full dictation for
additional detail.
10/06/2024 CXR (portable): No focal infiltrates no pleural effusion. No visualized pneumothorax. Please see full dictation for additional detail. Film personally viewed.
Assessment / Plan
Encephalopathy
Nuchal rigidity, with concern for meningitis
Fever
Hx breast CA
Dementia
HTN
HLD
GERD
Hiatal hernia
Leukocytosis
Recommendations:
CSF Meningitis panel by PCR negative.
Continue with ceftriaxone; will increase to 2 g IV every 24 hours, but no need for meningitis dosing, or the addition of ampicillin, vancomycin and acyclovir.
Follow white count and temperature curve.
Await further culture data to guide antibiotic selection and potential de-escalation.
Continue with supportive measures.
[2024-10-07 14:03] LABS: CSF Clarity Clear; CSF Color Colorless; CSF Tube # 1
[2024-10-07 14:05] LABS: CSF Color Colorless; CSF Tube # 4; CSF Tube # Clarity Clear
[2024-10-07 14:27] LABS: Red Cell Count/CSF 1 mm^3; White Blood Cell Count/CSF 2 mm^3 (0-5)
--- NOTE | 2024-10-07 14:50 | PTCARENOTE ---
Pt. lumbar puncture dressing CDI, no redness, swelling or drainage noted at this time.
[2024-10-07 15:16] LABS: Red Cell Count/CSF 0 mm^3; White Cell Count/CSF 1 mm^3 (0-5)
[2024-10-07] MEDS: STERILE WATER FOR INJECTION 20 ML IV (16:23)
[2024-10-07] MEDS: ROCEPHIN 2000 MG IV (16:23)
[2024-10-07] MEDS: LOVENOX 40 MG SC (16:27)
[2024-10-07] MEDS: ARIMIDEX PO (16:35)
--- NOTE | 2024-10-07 16:36 | PTCARENOTE ---
Pt. remains lethargic and unable to wake up enough to safely administer PO medications at this time. Dr. mcmanus made aware on rounds. at bedside.
[2024-10-07] MEDS: NAMENDA 10 MG PO (21:02)
[2024-10-07] MEDS: ARICEPT 10 MG PO (21:02)
[2024-10-07] MEDS: PROTONIX IV 40 MG IV (21:25)
[2024-10-07] MEDS: NSS (PRESERVATIVE FREE) 10 ML IV (21:25)
[2024-10-08 03:00] VITALS: BP 136/68
[2024-10-08] MEDS: NSS 1000 IV ×2 (03:02→13:46)
[2024-10-08 07:04] VITALS: BP 146/60
[2024-10-08 08:30] LABS: Hematocrit 25.8 % (37.0-47.0); Hemoglobin 8.2 g/dL (12.0-16.0); Mean Corp Hgb Conc. 31.8 g/dL (33.0-37.0); Mean Corpuscular Hgb 28.8 pg (27.0-31.0); Mean Corpuscular Volume 90.5 fL (81.0-99.0); Platelet Count 440 10^3/uL (130-400); Red Blood Cell Count 2.85 10^6/uL (4.20-5.40); Red Cell Dist. Width 13.2 % (11.5-14.5); White Blood Cell Count 13.7 10^3/uL (4.8-10.8)
[2024-10-08 09:24] VITALS: BP 140/62; PULSE 82; O2SAT 98
[2024-10-08] MEDS: PROTONIX 40 MG PO ×2 (09:53→20:17)
[2024-10-08] MEDS: LIPITOR 10 MG PO (09:54)
[2024-10-08] MEDS: NAMENDA 10 MG PO ×2 (09:54→20:16)
--- NOTE | 2024-10-08 10:44 | W.PN.HOSP.TC ---
Today's Communication/Plan
-
see plan
Assessment / Plan
Assessment / Plan
Gen: NAD, Awake and alert, NCAT
Eyes: EOMI, PERRLA, no scleral icterus.
Neck: supple
CV: RRR, +S1/S2, no m/r/g.
Resp: CTAB, no rales, wheezes, or rhonchi.
Abd: +BS, soft, NT, ND
Skin: No rashes.
Neuro: CN2-12 intact, non-focal
Psych: Calm
10/07/24 13:00 Csf CSF Culture - Preliminary
No Growth After 18-24 Hours
10/07/24 13:00 Csf Gram Stain - Preliminary
10/06/24 19:40 Blood/Venous Blood Culture - Preliminary
No Growth in 24 hours- Final report to follow
10/06/24 18:40 Blood/Venous Blood Culture - Preliminary
No Growth in 24 hours- Final report to follow
10/07/24 13:00 Csf Meningitis/Encephalitis Panel (PCR) - Final
10/06/24 18:40 Nasal Swab Influenza Types A & B (DAVID) - Final
Negative for Influenza A & B, NAAT
Negative results must be combined with clinical observations
and patient history.
Nucleic Acid Amplification test (NAAT)performed on the
[employer] platform.
CT Brain: No acute intracranial abnormality noted.
CXR: No acute cardiopulmonary process.
SIRS:
-presented with fever/lethargy/leukocytosis (acute metabolic encephalopathy)
-U/A not suggestive of infection
-COVID/Flu NEG
-Imaging above and unremarkable
-Currently on empiric Rocephin
-unclear why UCx sent with NEG U/A
-follow BCxs
-Leukocytosis improving
-cont IVFs
-with nuchal rigidity pt had LP on 10/07/24. Meningitis PCR panel negative, CSF with 2 WBC. Add on glucose/protein.
-ID following
Other problems:
h/o recent upper GI bleed: cont PPI, Hb stable
Essential hypertension: Holding losartan-HCTZ with hypotension
Dementia: cont memantine
Hyperlipidemia: continue statin
Breast cancer: continue anastrozole
Patient's updated at bedside. Patient's reports to me that her mentation is now back at her baseline.
FULL/Lovenox
Anticipated Discharge: Within 24 hours
Subjective/Interval History
-
Date of Service: October 08, 2024
Objective Data
-
Labs:
Laboratory Results
10/08/24
08:08
WBC 13.7 H
Hgb 8.2 L
Hct 25.8 L
Plt Count 440 H
Vital Signs:
Vital Signs
Temp Pulse Resp BP Pulse Ox
98.5 F 81 16 146/60 100
10/08/24 07:04 10/08/24 07:04 10/08/24 07:04 10/08/24 07:04 10/08/24 07:04
I&O
10/07/24 10/08/24 10/09/24
06:59 06:59 06:59
Intake Total 1200 / 1200
Output Total 100 / 100
Balance 1100 / 1100
[2024-10-08 11:28] VITALS: BP 126/77
[2024-10-08 15:20] VITALS: BP 103/46
--- NOTE | 2024-10-08 15:34 | W.PN.ID1 ---
Date of Service
Date of Service: October 08, 2024
Today's Communication
Continue antibiotics.
Assessment / Plan
Encephalopathy
Fever
Hx breast CA
Dementia
HTN
HLD
GERD
Hiatal hernia
Leukocytosis
Recommendations:
CSF Meningitis panel by PCR : negative.
UA, along with urine culture negative.
Continue with empiric ceftriaxone.
Follow white count and temperature curve.
Await further culture data to guide antibiotic selection and potential de-escalation.
Continue with supportive measures.
����������������������������������������������������������
Chief Complaint
-: Other (Encephalopathy)
Subjective / Review of Systems
Patient seen and examined. at the bedside, and reports patient somewhat clinically improved today. Although she has dementia, he reports that she has had increased verbalization today.
Vital Signs / Physical Exam
Vital Signs
Vital Signs
Temp Pulse Resp BP Pulse Ox
98.2 F 87 18 126/77 97
10/08/24 11:28 10/08/24 11:28 10/08/24 11:28 10/08/24 11:28 10/08/24 11:28
Physical Exam
Constitutional: Acutely Ill, Chronically Ill and Non-toxic
Cardiovascular: S1/S2; Negative S3/S4
Pulmonary: Non Labored
Gastrointestinal: Soft, Non Tender and Non Distended
Neurological: Other (Arousable and responsive to touch.)
Psychological: Calm
Objective Data
Lab Data
Lab Results
10/08/24 08:08
10/06/24 18:40
PT 14.8 Sec (11.4-14.6) H 10/07/24 12:14
INR 1.13 10/07/24 12:14
Estimated Creat Clear 55 ml/min 10/06/24 18:40
Most recent labs reviewed.
Micro Results:
10/06/24 18:40 Urine Culture - Final
Urine NO GROWTH
10/07/24 13:00 CSF Culture - Preliminary
Csf No Growth After 18-24 Hours
Gram Stain - Preliminary
10/06/24 19:40 Blood Culture - Preliminary
Blood/Venous No Growth in 24 hours- Final report to follow
10/06/24 18:40 Blood Culture - Preliminary
Blood/Venous No Growth in 24 hours- Final report to follow
10/07/24 13:00 Meningitis/Encephalitis Panel (PCR) - Final
Csf
10/06/24 18:40 Influenza Types A & B (DAVID) - Final
Nasal Swab Negative for Influenza A & B, NAAT
Negative results must be combined with clinical observations
and patient history.
Nucleic Acid Amplification test (NAAT)performed on the
[employer] platform.
Meningitis Panel, CSF by PCR 10/07/24-1505
Escherichia coli K1 Not Detected
Haemophilus influenzae Not Detected
Listeria monocytogenes Not Detected
Neisseria meningitidis Not Detected
Cytomegalovirus (CMV) Not Detected
Streptococcus agalactiae Not Detected
Streptococcus pneumoniae Not Detected
Enterovirus Not Detected
Herpes simplex virus 1 Not Detected
Herpes simplex virus 2 Not Detected
Human herpesvirus 6 Not Detected
Human parechovirus Not Detected
Varicella zoster virus Not Detected
C. neoformans/gattii Not Detected
Imaging:
10/06/2024 CT head without contrast: No acute intracranial abnormality noted. Ventricles are normal in size, configuration and position for age. No intra or extra-axial mass, hemorrhage or fluid collection noted. Please see full dictation for
additional detail.
10/06/2024 CXR (portable): No focal infiltrates no pleural effusion. No visualized pneumothorax. Please see full dictation for additional detail. Film personally viewed.
[2024-10-08] MEDS: ARIMIDEX PO (16:34)
[2024-10-08] MEDS: STERILE WATER FOR INJECTION 20 ML IV (16:35)
[2024-10-08] MEDS: ROCEPHIN 2000 MG IV (16:36)
[2024-10-08] MEDS: LOVENOX 40 MG SC (16:44)
[2024-10-08] MEDS: ARIMIDEX 1 MG PO (19:18)
[2024-10-08] MEDS: ARICEPT 10 MG PO (20:16)
[2024-10-08 23:34] VITALS: BP 93/59
[2024-10-09 07:25] VITALS: BP 92/58
[2024-10-09 07:58] LABS: Hematocrit 22.9 % (37.0-47.0); Hemoglobin 7.5 g/dL (12.0-16.0); Mean Corp Hgb Conc. 32.8 g/dL (33.0-37.0); Mean Corpuscular Volume 88.4 fL (81.0-99.0); Platelet Count 375 10^3/uL (130-400); Red Blood Cell Count 2.59 10^6/uL (4.20-5.40); Red Cell Dist. Width 13.2 % (11.5-14.5); White Blood Cell Count 11.1 10^3/uL (4.8-10.8)
[2024-10-09] MEDS: NSS 1000 IV (10:31)
[2024-10-09] MEDS: LIPITOR 10 MG PO (10:32)
[2024-10-09] MEDS: PROTONIX 40 MG PO ×2 (10:32→19:29)
[2024-10-09] MEDS: NAMENDA 10 MG PO ×2 (10:32→19:29)
--- NOTE | 2024-10-09 10:55 | W.PN.HOSP.TC ---
Today's Communication/Plan
-
see plan
Assessment / Plan
Assessment / Plan
Gen: NAD, Awake and alert, NCAT
Eyes: EOMI, PERRLA, no scleral icterus.
Neck: supple
CV: remains RRR, +S1/S2, no m/r/g.
Resp: remains CTAB, no rales, wheezes, or rhonchi.
Abd: remains +BS, soft, NT, ND
Skin: No rashes.
Neuro: CN2-12 intact, non-focal
Psych: Calm
10/07/24 13:00 Csf CSF Culture - Preliminary
No Growth After 48 Hours
10/07/24 13:00 Csf Gram Stain - Preliminary
10/06/24 19:40 Blood/Venous Blood Culture - Preliminary
No Growth in 48 hours- Final report to follow
10/06/24 18:40 Blood/Venous Blood Culture - Preliminary
No Growth in 48 hours- Final report to follow
10/06/24 18:40 Urine Urine Culture - Final
NO GROWTH
10/07/24 13:00 Csf Meningitis/Encephalitis Panel (PCR) - Final
10/06/24 18:40 Nasal Swab Influenza Types A & B (DAVID) - Final
Negative for Influenza A & B, NAAT
Negative results must be combined with clinical observations
and patient history.
Nucleic Acid Amplification test (NAAT)performed on the
[employer] NOW platform.
CT Brain: No acute intracranial abnormality noted.
CXR: No acute cardiopulmonary process.
SIRS:
-presented with fever/lethargy/leukocytosis (acute metabolic encephalopathy). Mental status now back at baseline as of 10/08/24.
-U/A not suggestive of infection
-COVID/Flu NEG
-Imaging above and unremarkable
-Currently on empiric Rocephin
-unclear why UCx sent with NEG U/A
-follow BCxs
-Leukocytosis improving
-cont IVFs
-with nuchal rigidity pt had LP on 10/07/24. Meningitis PCR panel negative, CSF with 2 WBC. CSF glucose/protein added on on 10/08/24. CSF Cx NG.
-ID following
Normocytic anemia:
-All the drop in hemoglobin could be dilutional this significant drop is concerning
-Check iron, TIBC, ferritin, LDH, haptoglobin, reticulocyte count. Heme test stool.
Other problems:
h/o recent upper GI bleed: cont PPI, Hb stable
Essential hypertension: Holding losartan-HCTZ with hypotension
Dementia: cont memantine
Hyperlipidemia: continue statin
Breast cancer: continue anastrozole
FULL/Lovenox
Total time spent on today's encounter was 50 minutes which included time spent in counseling the patient/family regarding diagnosis and treatment plan as listed above, goals of care, and symptom management. Case was discussed with nursing staff,
specialists, and care coordinators/case management. All labs and imaging personally reviewed by me. Remainder the time spent in detailed review of previous records, lab data, imaging, and other medical provider documentation.
Anticipated Discharge: 24 - 48 hours
Subjective/Interval History
-
Date of Service: October 09, 2024
Pt currently not answering questions (likely baseline).
Objective Data
-
Labs:
Laboratory Results
10/09/24
06:32
WBC 11.1 H
Hgb 7.5 L
Hct 22.9 L
Plt Count 375
Vital Signs:
Vital Signs
Temp Pulse Resp BP Pulse Ox
97.8 F 70 18 92/58 95
10/09/24 07:25 10/09/24 07:25 10/09/24 07:25 10/09/24 07:25 10/09/24 07:25
I&O
10/08/24 10/09/24 10/10/24
06:59 06:59 06:59
Intake Total 1200 / 1200 120 / 120
Output Total 100 / 100
Balance 1100 / 1100 120 / 120
[2024-10-09 11:37] LABS: Reticulocyte Count 2.6 % (0.4-2.8)
[2024-10-09 12:03] LABS: Blood Urea Nitrogen 9 mg/dl (7-17); Calcium 8.1 mg/dl (8.4-10.2); Carbon Dioxide 23 mmol/L (22-30); Chloride 111 mmol/L (98-107); Estimated Creatinine Clearance 63 ml/min; Glucose 84 mg/dl (70-99); Iron 30 ug/dl (37-170); Potassium 3.1 mmol/L (3.5-5.1); Sodium 142 mmol/L (135-145); eGFR > 60.00
[2024-10-09 12:12] VITALS: BP 120/56
[2024-10-09 12:13] LABS: Percent Saturation 12 % (20-50); Total Iron Binding Capacity 239 ug/dl (265-497)
[2024-10-09 12:17] LABS: LDH 184 U/L (120-246)
[2024-10-09 12:41] LABS: Ferritin 40.1 ng/ml (11.1-264.0)
--- NOTE | 2024-10-09 14:31 | CM ---
CM reviewed chart, patient seen bedside with spouse. Patient recently discharged from Hospital to [facility], short term rehab only, family not paying for a bed hold. Spouse agreeable to return to rehab when stable, referrals to [facility] and
[facility]. No beds at [facility] at this time. Per SNF: patient is confused, AOx1, assisted with feeding. CM will continue to follow for all discharge planning needs.
Plan; SNF when medically stable, referrals to [facility] and [facility], no auth required.
[2024-10-09] MEDS: MIRALAX 17 GRAMS PO (15:00)
[2024-10-09] MEDS: KLOR-CON 40 MEQ PO (15:01)
--- NOTE | 2024-10-09 15:10 | W.PN.ID1 ---
Date of Service
Date of Service: October 09, 2024
Today's Communication
Continue antibiotics
Assessment / Plan
Encephalopathy
Fever
Hx breast CA
Dementia
HTN
HLD
GERD
Hiatal hernia
Leukocytosis
Recommendations:
CSF Meningitis panel by PCR : negative.
UA, along with urine culture negative.
Continue with empiric ceftriaxone. Improving leukocytosis is encouraging.
Follow white count and temperature curve.
Continue with supportive measures.
Possible change to oral antibiotics in the next 24 to 48 hours.
����������������������������������������������������������
Chief Complaint
-: Other (Encephalopathy)
Subjective / Review of Systems
Review of Systems: No Fever
Vital Signs / Physical Exam
Vital Signs
Vital Signs
Temp Pulse Resp BP Pulse Ox
97.7 F 75 18 120/56 96
10/09/24 12:12 10/09/24 12:12 10/09/24 12:12 10/09/24 12:12 10/09/24 12:12
Physical Exam
Constitutional: Acutely Ill, Chronically Ill and Non-toxic
Cardiovascular: S1/S2; Negative S3/S4
Pulmonary: Non Labored
Gastrointestinal: Soft, Non Tender and Non Distended
Neurological: Other (Arousable and responsive to touch.)
Psychological: Calm
Objective Data
Lab Data
Lab Results
10/09/24 06:32
10/09/24 11:10
PT 14.8 Sec (11.4-14.6) H 10/07/24 12:14
INR 1.13 10/07/24 12:14
Estimated Creat Clear 63 ml/min 10/09/24 11:10
Most recent labs reviewed.
Micro Results:
10/07/24 13:00 CSF Culture - Preliminary
Csf No Growth After 48 Hours
Gram Stain - Preliminary
10/06/24 19:40 Blood Culture - Preliminary
Blood/Venous No Growth in 48 hours- Final report to follow
10/06/24 18:40 Blood Culture - Preliminary
Blood/Venous No Growth in 48 hours- Final report to follow
10/06/24 18:40 Urine Culture - Final
Urine NO GROWTH
10/07/24 13:00 Meningitis/Encephalitis Panel (PCR) - Final
Csf
10/06/24 18:40 Influenza Types A & B (DAVID) - Final
Nasal Swab Negative for Influenza A & B, NAAT
Negative results must be combined with clinical observations
and patient history.
Nucleic Acid Amplification test (NAAT)performed on the
[employer] platform.
Meningitis Panel, CSF by PCR 10/07/24-1505
Escherichia coli K1 Not Detected
Haemophilus influenzae Not Detected
Listeria monocytogenes Not Detected
Neisseria meningitidis Not Detected
Cytomegalovirus (CMV) Not Detected
Streptococcus agalactiae Not Detected
Streptococcus pneumoniae Not Detected
Enterovirus Not Detected
Herpes simplex virus 1 Not Detected
Herpes simplex virus 2 Not Detected
Human herpesvirus 6 Not Detected
Human parechovirus Not Detected
Varicella zoster virus Not Detected
C. neoformans/gattii Not Detected
Imaging:
10/06/2024 CT head without contrast: No acute intracranial abnormality noted. Ventricles are normal in size, configuration and position for age. No intra or extra-axial mass, hemorrhage or fluid collection noted. Please see full dictation for
additional detail.
10/06/2024 CXR (portable): No focal infiltrates no pleural effusion. No visualized pneumothorax. Please see full dictation for additional detail. Film personally viewed.
[2024-10-09 15:39] VITALS: BP 106/49
[2024-10-09] MEDS: ROCEPHIN 2000 MG IV (17:33)
[2024-10-09] MEDS: LOVENOX 40 MG SC (17:35)
[2024-10-09] MEDS: STERILE WATER FOR INJECTION 20 ML IV (17:35)
[2024-10-09] MEDS: ARIMIDEX 1 MG PO (17:36)
[2024-10-09] MEDS: ARICEPT 10 MG PO (19:29)
[2024-10-09 23:43] VITALS: BP 121/57
[2024-10-10 00:51] LABS: Paraneoplastic Ab IgG, CSF None Detected (None Detected)
[2024-10-10] MEDS: NSS 1000 IV (02:20)
[2024-10-10 07:33] VITALS: BP 127/69
[2024-10-10 08:06] LABS: Hematocrit 23.7 % (37.0-47.0); Hemoglobin 7.7 g/dL (12.0-16.0); Mean Corp Hgb Conc. 32.5 g/dL (33.0-37.0); Mean Corpuscular Hgb 28.6 pg (27.0-31.0); Mean Corpuscular Volume 88.1 fL (81.0-99.0); Mean Platelet Volume 9.5 fL (7.4-10.4); Platelet Count 449 10^3/uL (130-400); Red Blood Cell Count 2.69 10^6/uL (4.20-5.40); Red Cell Dist. Width 13.3 % (11.5-14.5); White Blood Cell Count 6.5 10^3/uL (4.8-10.8)
[2024-10-10 09:18] LABS: Blood Urea Nitrogen 7 mg/dl (7-17); Calcium 7.7 mg/dl (8.4-10.2); Carbon Dioxide 19 mmol/L (22-30); Chloride 110 mmol/L (98-107); Estimated Creatinine Clearance 63 ml/min; Glucose 83 mg/dl (70-99); Potassium 3.3 mmol/L (3.5-5.1); Sodium 139 mmol/L (135-145); eGFR > 60.00
[2024-10-10] MEDS: MIRALAX 17 GRAMS PO (09:39)
[2024-10-10] MEDS: PROTONIX 40 MG PO ×2 (09:39→19:43)
[2024-10-10] MEDS: NAMENDA 10 MG PO ×2 (09:39→19:43)
[2024-10-10] MEDS: LIPITOR 10 MG PO (09:39)
--- NOTE | 2024-10-10 12:04 | W.PN.HOSP.TC ---
Today's Communication/Plan
-
see bold
Assessment / Plan
Assessment / Plan
Gen: NAD, Awake and alert, NCAT
Eyes: EOMI, PERRLA, no scleral icterus.
Neck: supple
CV: continues to remain RRR, +S1/S2, no m/r/g.
Resp: continues to remain CTAB, no rales, wheezes, or rhonchi.
Abd: continues to remain +BS, soft, NT, ND
Skin: No rashes.
Neuro: CN2-12 intact, non-focal
Psych: Calm
10/07/24 13:00 Csf CSF Culture - Preliminary
No Growth After 72 Hours
10/07/24 13:00 Csf Gram Stain - Preliminary
10/06/24 19:40 Blood/Venous Blood Culture - Preliminary
No Growth in 72 hours- Final report to follow
10/06/24 18:40 Blood/Venous Blood Culture - Preliminary
No Growth in 72 hours- Final report to follow
10/06/24 18:40 Urine Urine Culture - Final
NO GROWTH
10/07/24 13:00 Csf Meningitis/Encephalitis Panel (PCR) - Final
10/06/24 18:40 Nasal Swab Influenza Types A & B (DAVID) - Final
Negative for Influenza A & B, NAAT
Negative results must be combined with clinical observations
and patient history.
Nucleic Acid Amplification test (NAAT)performed on the
[employer] platform.
CT Brain: No acute intracranial abnormality noted.
CXR: No acute cardiopulmonary process.
SIRS:
-presented with fever/lethargy/leukocytosis (acute metabolic encephalopathy). Mental status now back at baseline as of 10/08/24.
-U/A not suggestive of infection
-COVID/Flu NEG
-Imaging above and unremarkable
-Currently on empiric Rocephin
-unclear why UCx sent with NEG U/A
-follow BCxs
-Leukocytosis now resolved
-stop IVFs
-with nuchal rigidity pt had LP on 10/07/24. Meningitis PCR panel negative, CSF with 2 WBC. CSF glucose/protein added on on 10/08/24. CSF Cx NG.
-ID following
Normocytic anemia:
-All the drop in hemoglobin could be dilutional this significant drop is concerning
-Despite normal MCV iron studies are indicative of iron deficiency anemia. Reticulocyte count and LDH normal. Haptoglobin pending.
-cont IV Fe
-Heme test stool
Other problems:
h/o recent upper GI bleed: cont PPI, Hb stable
Essential hypertension: Holding losartan-HCTZ with hypotension
Dementia: cont memantine
Hyperlipidemia: continue statin
Breast cancer: continue anastrozole
Hypokalemia: 80meq K total today, check Mg
FULL/Lovenox
Anticipated Discharge: Within 24 hours
Subjective/Interval History
-
Date of Service: October 10, 2024
Pt awake and alert but confused. Answers first question of how she's feeling by saying 'I'm here.'
Objective Data
-
Labs:
Laboratory Results
10/10/24
07:00
WBC 6.5
Hgb 7.7 L
Hct 23.7 L
Plt Count 449 H
Sodium 139
Potassium 3.3 L
Chloride 110 H
Carbon Dioxide 19 L
BUN 7
Creatinine 0.4 L
Glucose 83
Calcium 7.7 L
Vital Signs:
Vital Signs
Temp Pulse Resp BP Pulse Ox
98.2 F 71 18 127/69 98
10/10/24 07:33 10/10/24 07:33 10/10/24 07:33 10/10/24 07:33 10/10/24 07:33
I&O
10/09/24 10/10/24 10/11/24
06:59 06:59 06:59
Intake Total 120 / 120 1210 / 1210
Balance 120 / 120 1210 / 1210
[2024-10-10 12:35] LABS: Lyme Disease DNA by PCR Not Detected; Lyme Source CSF
[2024-10-10 12:39] LABS: Magnesium 1.8 mg/dl (1.6-2.3)
[2024-10-10] MEDS: KLOR-CON 40 MEQ PO ×2 (12:39→17:02)
[2024-10-10 13:04] LABS: Albumin 2.4 g/dl (3.5-5.0)
[2024-10-10] MEDS: FERRLECIT 110 MG IV (14:43)
[2024-10-10 15:57] VITALS: BP 140/66
--- NOTE | 2024-10-10 17:00 | W.PN.ID1 ---
Date of Service
Date of Service: October 10, 2024
Today's Communication
Transition to oral cefdinir.
Assessment / Plan
Encephalopathy
Fever
Hx breast CA
Dementia
HTN
HLD
GERD
Hiatal hernia
Leukocytosis
Recommendations:
CSF Meningitis panel by PCR : negative.
Cultures negative..
Patient apparently now back at baseline per .
Leukocytosis has resolved.
Transition to oral cefdinir, to continue for an additional 3 days.
Continue to follow white count and temperature curve.
����������������������������������������������������������
Chief Complaint
-: Other (Encephalopathy)
Subjective / Review of Systems
Patient seen and examined. Awake and alert today. Answering questions (although confused). at bedside and reports patient at baseline.
Vital Signs / Physical Exam
Vital Signs
Vital Signs
Temp Pulse Resp BP Pulse Ox
98.8 F 74 16 140/66 100
10/10/24 15:57 10/10/24 15:57 10/10/24 15:57 10/10/24 15:57 10/10/24 15:57
Physical Exam
Constitutional: Acutely Ill, Chronically Ill and Non-toxic
Cardiovascular: Regular Rate
Pulmonary: Non Labored
Gastrointestinal: Soft, Non Tender and Non Distended
Skin: Negative Rash or Jaundice
Psychological: Calm
Objective Data
Lab Data
Lab Results
10/10/24 07:00
10/10/24 07:00
PT 14.8 Sec (11.4-14.6) H 10/07/24 12:14
INR 1.13 10/07/24 12:14
Estimated Creat Clear 63 ml/min 10/10/24 07:00
Most recent labs reviewed.
Micro Results:
10/07/24 13:00 CSF Culture - Preliminary
Csf No Growth After 72 Hours
Gram Stain - Preliminary
10/06/24 19:40 Blood Culture - Preliminary
Blood/Venous No Growth in 72 hours- Final report to follow
10/06/24 18:40 Blood Culture - Preliminary
Blood/Venous No Growth in 72 hours- Final report to follow
10/06/24 18:40 Urine Culture - Final
Urine NO GROWTH
10/07/24 13:00 Meningitis/Encephalitis Panel (PCR) - Final
Csf
10/06/24 18:40 Influenza Types A & B (DAVID) - Final
Nasal Swab Negative for Influenza A & B, NAAT
Negative results must be combined with clinical observations
and patient history.
Nucleic Acid Amplification test (NAAT)performed on the
[employer] platform.
Meningitis Panel, CSF by PCR 10/07/24-1505
Escherichia coli K1 Not Detected
Haemophilus influenzae Not Detected
Listeria monocytogenes Not Detected
Neisseria meningitidis Not Detected
Cytomegalovirus (CMV) Not Detected
Streptococcus agalactiae Not Detected
Streptococcus pneumoniae Not Detected
Enterovirus Not Detected
Herpes simplex virus 1 Not Detected
Herpes simplex virus 2 Not Detected
Human herpesvirus 6 Not Detected
Human parechovirus Not Detected
Varicella zoster virus Not Detected
C. neoformans/gattii Not Detected
Imaging:
10/06/2024 CT head without contrast: No acute intracranial abnormality noted. Ventricles are normal in size, configuration and position for age. No intra or extra-axial mass, hemorrhage or fluid collection noted. Please see full dictation for
additional detail.
10/06/2024 CXR (portable): No focal infiltrates no pleural effusion. No visualized pneumothorax. Please see full dictation for additional detail. Film personally viewed.
Chest X-Ray: Image Reviewed and Report Reviewed
[2024-10-10] MEDS: ROCEPHIN 2000 MG IV (17:02)
[2024-10-10] MEDS: STERILE WATER FOR INJECTION 20 ML IV (17:02)
[2024-10-10] MEDS: ARIMIDEX 1 MG PO (17:17)
[2024-10-10] MEDS: LOVENOX 40 MG SC (17:17)
[2024-10-10] MEDS: NSS IV (19:07)
[2024-10-10] MEDS: OMNICEF 300 MG PO (19:43)
[2024-10-10] MEDS: ARICEPT 10 MG PO (19:43)
[2024-10-10 23:40] VITALS: BP 145/67
[2024-10-11 07:26] LABS: Blood Urea Nitrogen 4 mg/dl (7-17); Calcium 8.2 mg/dl (8.4-10.2); Carbon Dioxide 24 mmol/L (22-30); Chloride 108 mmol/L (98-107); Estimated Creatinine Clearance 63 ml/min; Glucose 83 mg/dl (70-99); Potassium 3.9 mmol/L (3.5-5.1); Sodium 136 mmol/L (135-145); eGFR > 60.00
[2024-10-11 07:35] VITALS: BP 144/84
[2024-10-11] MEDS: LIPITOR 10 MG PO (08:52)
[2024-10-11] MEDS: MIRALAX PO (08:52)
[2024-10-11] MEDS: OMNICEF 300 MG PO ×2 (08:52→20:35)
[2024-10-11] MEDS: PROTONIX 40 MG PO (08:53)
[2024-10-11] MEDS: NAMENDA 10 MG PO ×2 (08:53→20:36)
--- NOTE | 2024-10-11 10:59 | W.PN.HOSP.TC ---
Today's Communication/Plan
-
see bold
Assessment / Plan
Assessment / Plan
Gen: remains NAD, Awake and alert, NCAT
Eyes: remains EOMI, PERRLA, no scleral icterus.
Neck: supple
CV: RRR, +S1/S2, no m/r/g.
Resp: CTAB, no rales, wheezes, or rhonchi.
Abd: +BS, soft, NT, ND
Skin: No rashes.
Neuro: remains CN2-12 intact, non-focal
Psych: Calm
10/07/24 13:00 Csf CSF Culture - Preliminary
No Growth After 72 Hours
10/07/24 13:00 Csf Gram Stain - Preliminary
10/06/24 19:40 Blood/Venous Blood Culture - Preliminary
No Growth in 72 hours- Final report to follow
10/06/24 18:40 Blood/Venous Blood Culture - Preliminary
No Growth in 72 hours- Final report to follow
10/06/24 18:40 Urine Urine Culture - Final
NO GROWTH
10/07/24 13:00 Csf Meningitis/Encephalitis Panel (PCR) - Final
10/06/24 18:40 Nasal Swab Influenza Types A & B (DAVID) - Final
Negative for Influenza A & B, NAAT
Negative results must be combined with clinical observations
and patient history.
Nucleic Acid Amplification test (NAAT)performed on the
[employer] platform.
CT Brain: No acute intracranial abnormality noted.
CXR: No acute cardiopulmonary process.
SIRS:
-presented with fever/lethargy/leukocytosis (acute metabolic encephalopathy). Mental status now back at baseline as of 10/08/24.
-U/A not suggestive of infection
-COVID/Flu NEG
-Imaging above and unremarkable
-was on empiric Rocephin, now transitioned to Cefdinir
-unclear why UCx sent with NEG U/A
-follow BCxs
-Leukocytosis now resolved
-stop IVFs
-with nuchal rigidity pt had LP on 10/07/24. Meningitis PCR panel negative, CSF with 2 WBC. CSF glucose/protein added on on 10/08/24. CSF Cx NG.
-ID following
Normocytic anemia:
-h/o recent upper GI bleed
-previously it was thought that the drop in hemoglobin on this admission was dilutional
-Despite normal MCV iron studies are indicative of iron deficiency anemia. Reticulocyte count and LDH normal. Haptoglobin pending.
-cont IV Fe
-Heme test stool
-melena this AM, c/s GI, change PPI to IV BID
-Hb stabilized
Other problems:
Essential hypertension: Holding losartan-HCTZ with hypotension
Dementia: cont memantine
Hyperlipidemia: continue statin
Breast cancer: continue anastrozole
Hypokalemia, resolved
Patient's updated at bedside.
FULL/Lovenox
Anticipated Discharge: Within 24 hours
Subjective/Interval History
-
Date of Service: October 11, 2024
Patient awake and alert but with underlying dementia. Unable to give subjective history at this time. As per nursing patient had melena this AM.
Objective Data
-
Labs:
Laboratory Results
10/11/24
06:15
Sodium 136
Potassium 3.9
Chloride 108 H
Carbon Dioxide 24
BUN 4 L
Creatinine 0.4 L
Glucose 83
Calcium 8.2 L
Vital Signs:
Vital Signs
Temp Pulse Resp BP Pulse Ox
97.9 F 76 18 144/84 100
10/11/24 07:35 10/11/24 07:35 10/11/24 07:35 10/11/24 07:35 10/11/24 07:35
I&O
10/10/24 10/11/24 10/12/24
06:59 06:59 06:59
Intake Total 1210 / 1210 680 / 680 240 / 240
Output Total 75 / 75
Balance 1210 / 1210 680 / 680 165 / 165
[2024-10-11] MEDS: NSS IV (11:10)
--- NOTE | 2024-10-11 12:41 | W.PN.ID1 ---
Date of Service
Date of Service: October 11, 2024
Today's Communication
Continue antibiotics.
Assessment / Plan
Encephalopathy
- appears back to baseline
Fever
Hx breast CA
Dementia
HTN
HLD
GERD
Hiatal hernia
Leukocytosis
Recommendations:
CSF Meningitis panel by PCR : negative.
Cultures negative..
Patient apparently now back at baseline per .
Leukocytosis has resolved.
Continue cefdinir, to continue for an additional 2 days.
Monitor white count and temperature curve.
����������������������������������������������������������
Chief Complaint
-: Other (Encephalopathy)
Subjective / Review of Systems
Review of Systems: No Fever and No Chills
Vital Signs / Physical Exam
Vital Signs
Vital Signs
Temp Pulse Resp BP Pulse Ox
97.9 F 76 18 144/84 100
10/11/24 07:35 10/11/24 07:35 10/11/24 07:35 10/11/24 07:35 10/11/24 07:35
Physical Exam
Constitutional: No Acute Distress, Comfortable, Chronically Ill and Non-toxic
Cardiovascular: Regular Rate
Pulmonary: Non Labored
Gastrointestinal: Soft, Non Tender and Non Distended
Skin: Negative Rash or Jaundice
Psychological: Calm
Objective Data
Lab Data
Lab Results
10/10/24 07:00
10/11/24 06:15
PT 14.8 Sec (11.4-14.6) H 10/07/24 12:14
INR 1.13 10/07/24 12:14
Estimated Creat Clear 63 ml/min 10/11/24 06:15
Most recent labs reviewed.
Micro Results:
10/07/24 13:00 CSF Culture - Preliminary
Csf No Growth After 4 Days
Gram Stain - Preliminary
10/06/24 19:40 Blood Culture - Preliminary
Blood/Venous No Growth in 4 days- Final report to follow
10/06/24 18:40 Blood Culture - Preliminary
Blood/Venous No Growth in 4 days- Final report to follow
10/06/24 18:40 Urine Culture - Final
Urine NO GROWTH
10/07/24 13:00 Meningitis/Encephalitis Panel (PCR) - Final
Csf
10/06/24 18:40 Influenza Types A & B (DAVID) - Final
Nasal Swab Negative for Influenza A & B, NAAT
Negative results must be combined with clinical observations
and patient history.
Nucleic Acid Amplification test (NAAT)performed on the
[employer] platform.
Meningitis Panel, CSF by PCR 10/07/24-1505
Escherichia coli K1 Not Detected
Haemophilus influenzae Not Detected
Listeria monocytogenes Not Detected
Neisseria meningitidis Not Detected
Cytomegalovirus (CMV) Not Detected
Streptococcus agalactiae Not Detected
Streptococcus pneumoniae Not Detected
Enterovirus Not Detected
Herpes simplex virus 1 Not Detected
Herpes simplex virus 2 Not Detected
Human herpesvirus 6 Not Detected
Human parechovirus Not Detected
Varicella zoster virus Not Detected
C. neoformans/gattii Not Detected
Imaging:
10/06/2024 CT head without contrast: No acute intracranial abnormality noted. Ventricles are normal in size, configuration and position for age. No intra or extra-axial mass, hemorrhage or fluid collection noted. Please see full dictation for
additional detail.
10/06/2024 CXR (portable): No focal infiltrates no pleural effusion. No visualized pneumothorax. Please see full dictation for additional detail. Film personally viewed.
--- NOTE | 2024-10-11 13:21 | CON.GI ---
Addendum entered and electronically signed by Filiberto Griffin MD 10/11/24 14:41:
I saw and examined the patient.
The DIE STAMPER or PA's note was reviewed and I agree with the note.
Comment: 78yo female with dementia recently admitted to 09/25 to 10/01 for sepsis due to UTI. She had CGE during admission. CT showed moderate hiatal hernia, distal thoracic esophageal wall thickening and fluid distension of distal thoracic
esophagus. Radiology suggested considering direct visualization to rule out underlying distal esophageal neoplasm. GI was consulted and consideration was given to proceed with EGD, but hgb remained stable and upon discussion with , decided
to hold off. Now admitted with fever, no source identified. ID following, on cefdinir. Today passed large black BM and hgb has dropped this admission from 10.3 (10/06) to 7.5 (10/09), given IV iron. Hgb today 9.1. BP and HR have remained stable
REC:
At this point with melena, drop in Hgb, and findings on CT 09/25, would recommend EGD to evaluate for bleeding sources (ulcer, ectasia) and rule out esophageal neoplasm
Pt is demented and will need to give consent
Cont Protonix BID IV
Trend Hgb, no transfusion required yet. Transfuse as needed
Original Note:
Consultation
-
Date/Time Consultation Requested: 10/11/24 1101
Date/Time Consultation Performed: 10/11/24 1300
Requesting Provider: Dr. Mcelroy
Performing Provider: Dr. Mosley/ARMANDO Du
Reason for Consultation: melena, anemia, recent coffee ground emesis
Medical History
Chief Complaint / HPI
Chief Complaint: vomiting, constipation
History of Present Illness:
78 yo with hx breast CA, status post left lumpectomy and radiation, dementia, HTN, GERD, HH with prior HH repair, hyperlipidemia with eval 09/25 in ER for constipation, decreased oral intake and coffee ground emesis. She had a CT of the abdomen and
pelvis with IV contrast only performed on 09/25/2024 that showed reflux esophagitis, mild hiatal hernia, consider visualization to rule out distal esophageal neoplasm, mild ileus/enteritis and moderate stool burden with concern for constipation.
Patient had bowel regimen and had improvement of symptoms. During that time she was treated for UTI. Her hemoglobin remained stable. After discussion with patient's and stable hemoglobin decision was made to hold off on EGD at the present
time as patient had no further episodes of coffee-ground emesis and hemoglobin remained stable. Patient was discharged on 10/01/2024 however she returns to the emergency room on 10/06/2024 from local long term for evaluation of increased lethargy
and fever. She had a fever of up to 101. She was seen by infectious disease with a full workup including blood cultures, CSF fluid, negative flu, negative COVID, CT of the head, chest x-ray. She has been treated and currently on cefdinir to
continue for 2 more days. We are asked to evaluate as the patient had a large tarry black bowel movement this morning. Her hemoglobin has decreased as well. On admission she was 10.3 and on 10/09/2024 her hemoglobin is 7.5. She was given a dose of
IV iron and yesterday was 7.7. No labs today. She has continued on pantoprazole 40 mg IV twice daily since admission. The patient is confused at baseline. She tells me her name is 'Shruthi'. I am not sure if that is the nickname as her name is
Mahogany. She does not know where she is at, she cannot tell me any other information. She does elicit that she does have discomfort upon palpation in the epigastric area. She is on a diet. She has never had an endoscopy before. I did call her
Eduardo Vuong [phone] who would be agreeable for endoscopy given current information.
Past Medical History
Past Medical History: Cancer (breast CA), GERD, HTN, Hypercholesterolemia, Psychiatric (dementia ) and Other (hiatal hernia )
Past Surgical History: Orthopedic (b/l TKR) and Other (HH repair, cataract surgery )
Social History
Tobacco: Former Smoker (quit 40 years ago )
Alcohol: Former (social in past )
Drug: None
Personal:
Living: With Family
Employment: Retired
Family History
Family History: Other (no known family hx GI malignancies or problems)
Allergies / Home Medications
Allergy/AdvReac Type Severity Reaction Status Date / Time
No Known Allergies Allergy Verified 09/25/24 17:44
�Medication �Instructions �Recorded
anastrozole 1 mg tablet 1 mg PO QPM Cancer 09/25/24
donepezil 10 mg tablet 10 mg PO HS Neurological Condition 09/25/24
losartan 100 1 tab PO DAILY Blood Pressure 09/25/24
mg-hydrochlorothiazide 25 mg tablet
memantine 10 mg tablet 10 mg PO BID Neurological Condition 09/25/24
simvastatin 20 mg tablet 20 mg PO QPM High Cholesterol 09/25/24
pantoprazole 40 mg tablet,delayed 40 mg PO BID #0 tabs 10/01/24
release
fexofenadine 180 mg tablet 180 mg PO Daily 10/10/24
risperidone 1 mg tablet 1 mg PO DAILY 10/10/24
Review of Systems
-
Unable to obtain full review of systems at this time due to: Dementia
Vital Signs
Temp Pulse Resp BP Pulse Ox
97.9 F 76 18 144/84 100
10/11/24 07:35 10/11/24 07:35 10/11/24 07:35 10/11/24 07:35 10/11/24 07:35
Physical Exam
Exam
General: No Apparent Distress
HEENT: Anicteric
Respiratory: Clear
Cardiac: Regular Rhythm
GI: Soft, Non Distended, Normal Bowel Sounds and Tender (Epigastric)
Musculoskeletal: Edema (Bilateral lower extremity edema +1)
Skin: Warm and Dry
Neuro: Awake, Alert and Oriented (Patient does not even seem oriented x 1, cannot tell me her name)
Psych: Calm
Results
WBC 6.5 10^3/uL (4.8-10.8) 10/10/24 07:00
Hgb 7.7 g/dL (12.0-16.0) L 10/10/24 07:00
Hct 23.7 % (37.0-47.0) L 10/10/24 07:00
MCV 88.1 fL (81.0-99.0) 10/10/24 07:00
Plt Count 449 10^3/uL (130-400) H 10/10/24 07:00
Absolute Neuts (auto) 18.5 10^3/uL (1.4-6.5) H 10/06/24 18:40
PT 14.8 Sec (11.4-14.6) H 10/07/24 12:14
INR 1.13 10/07/24 12:14
Sodium 136 mmol/L (135-145) 10/11/24 06:15
Potassium 3.9 mmol/L (3.5-5.1) 10/11/24 06:15
Chloride 108 mmol/L (98-107) H 10/11/24 06:15
Carbon Dioxide 24 mmol/L (22-30) 10/11/24 06:15
BUN 4 mg/dl (7-17) L 10/11/24 06:15
Creatinine 0.4 mg/dL (0.6-1.0) L 10/11/24 06:15
Calcium 8.2 mg/dl (8.4-10.2) L 10/11/24 06:15
Diagnostic Image Results:
Chest x-ray 10/06/2024:L
No acute cardiopulmonary process.
Head CT 10/06/2024:
No acute intracranial abnormality noted
CT abdomen and pelvis with IV contrast only 09/25/2024:
1. Findings in keeping with reflux esophagitis. Moderate hiatal hernia. Consider direct visualization to rule out underlying distal esophageal neoplasm.
2. Mild enteritis/ileus.
3. Moderate diffuse colonic stool burden may reflect constipation.
Prior GI Procedures:
No hx EGD.
hx colonoscopy 2012 with 2 mm HP polyps in sigmoid and TC, scar in rectum.
Assessment / Plan
-
78 yo with hx breast CA, status post left lumpectomy and radiation, dementia, HTN, GERD, HH with prior HH repair, hyperlipidemia with eval 09/25 in ER for constipation, decreased oral intake and coffee ground emesis. She had a CT of the abdomen and
pelvis with IV contrast only performed on 09/25/2024 that showed reflux esophagitis, mild hiatal hernia, consider visualization to rule out distal esophageal neoplasm, mild ileus/enteritis and moderate stool burden with concern for constipation.
Patient had bowel regimen and had improvement of symptoms. During that time she was treated for UTI. Her hemoglobin remained stable. After discussion with patient's and stable hemoglobin decision was made to hold off on EGD at the present
time as patient had no further episodes of coffee-ground emesis and hemoglobin remained stable. Patient was discharged on 10/01/2024 however she returns to the emergency room on 10/06/2024 from local long term for evaluation of increased lethargy
and fever. She had a fever of up to 101. She was seen by infectious disease with a full workup including blood cultures, CSF fluid, negative flu, negative COVID, CT of the head, chest x-ray. She has been treated and currently on cefdinir to
continue for 2 more days. We are asked to evaluate as the patient had a large tarry black bowel movement this morning. Patient's hemoglobin yesterday is 7.7 down from hemoglobin of 10.3 on 10/06/2024. Has been on pantoprazole 40 mg twice daily.
Will repeat CBC now, as patient had large black bowel movement this morning. Patient is not oriented however does complain of discomfort upon palpation epigastric area. Does have a history of breast cancer status post left lumpectomy and
radiation. Discussed with patient's
Eduardo Vuong [phone]. Given patient now with hemoglobin in the sevens with melena despite being on PPI twice daily since 09/26/2024 would be agreeable to EGD.
Impression:
Anemia, hemoglobin 7.7 down from 10.3 on admission
Prior coffee-ground emesis 09/25/2024
Epigastric discomfort on palpation
Encephalopathy
Fever
Dementia
Hiatal hernia
Distal thoracic esophageal wall thickening seen on CT 09/25/2024
History of left-sided breast cancer status postlumpectomy and radiation
Plan:
-Check CBC today.
-Continue pantoprazole 40 mg IV twice daily
-CBC, BMP in a.m.
-Will make n.p.o. in a.m. in case EGD planned for tomorrow. Will discuss with GI attending.
- Eduardo Vuong [phone], to give consent as patient with dementia
- Further recommendations to be forthcoming.
-
-
Thank you for consultation and allowing me to participate in the patient's care. Please call the welder setter electron beam machine GI physician during the after hours with any questions or concerns.
[2024-10-11 14:05] LABS: Hematocrit 27.3 % (37.0-47.0); Hemoglobin 9.1 g/dL (12.0-16.0); Mean Corp Hgb Conc. 33.3 g/dL (33.0-37.0); Mean Corpuscular Volume 86.9 fL (81.0-99.0); Mean Platelet Volume 8.9 fL (7.4-10.4); Platelet Count 553 10^3/uL (130-400); Red Blood Cell Count 3.14 10^6/uL (4.20-5.40); Red Cell Dist. Width 13.3 % (11.5-14.5)
[2024-10-11] MEDS: FERRLECIT 110 MG IV (15:15)
[2024-10-11 15:27] VITALS: BP 124/72
[2024-10-11] MEDS: LOVENOX 40 MG SC (17:43)
[2024-10-11] MEDS: ARIMIDEX 1 MG PO (17:43)
[2024-10-11] MEDS: ARICEPT 10 MG PO (20:36)
[2024-10-11] MEDS: NSS (PRESERVATIVE FREE) 10 ML IV (20:36)
[2024-10-11] MEDS: PROTONIX IV 40 MG IV (20:36)
[2024-10-11 22:17] LABS: Haptoglobin 360 mg/dL (30-200)
[2024-10-11 23:00] VITALS: BP 153/74
[2024-10-12] VITALS (8 sets, daily range): BP systolic 105–133; BP diastolic 49–93; BMI 20.3
[2024-10-12 07:22] LABS: Hematocrit 23.8 % (37.0-47.0); Hemoglobin 7.8 g/dL (12.0-16.0); Mean Corp Hgb Conc. 32.8 g/dL (33.0-37.0); Mean Corpuscular Hgb 28.7 pg (27.0-31.0); Mean Corpuscular Volume 87.5 fL (81.0-99.0); Platelet Count 455 10^3/uL (130-400); Red Blood Cell Count 2.72 10^6/uL (4.20-5.40); Red Cell Dist. Width 13.5 % (11.5-14.5); White Blood Cell Count 7.1 10^3/uL (4.8-10.8)
--- NOTE | 2024-10-12 07:32 | W.PN.HOSP.TC ---
Today's Communication/Plan
-
see plan
Assessment / Plan
Assessment / Plan
Gen: Continues to remain NAD, Awake and alert, NCAT
Eyes: Continues to remain EOMI, PERRLA, no scleral icterus.
Neck: supple
CV: RRR, +S1/S2, no m/r/g.
Resp: CTAB, no rales, wheezes, or rhonchi.
Abd: +BS, soft, NT, ND
Skin: No rashes.
Neuro: Continues to remain CN2-12 intact, non-focal
Psych: Calm
10/06/24 19:40 Blood/Venous Blood Culture - Final
No Growth - Final Report
10/06/24 18:40 Blood/Venous Blood Culture - Final
No Growth - Final Report
10/07/24 13:00 Csf CSF Culture - Preliminary
No Growth After 4 Days
10/07/24 13:00 Csf Gram Stain - Preliminary
10/06/24 18:40 Urine Urine Culture - Final
NO GROWTH
10/07/24 13:00 Csf Meningitis/Encephalitis Panel (PCR) - Final
10/06/24 18:40 Nasal Swab Influenza Types A & B (DAVID) - Final
Negative for Influenza A & B, NAAT
Negative results must be combined with clinical observations
and patient history.
Nucleic Acid Amplification test (NAAT)performed on the
[employer] ID NOW platform.
CT Brain: No acute intracranial abnormality noted.
CXR: No acute cardiopulmonary process.
SIRS:
-presented with fever/lethargy/leukocytosis (acute metabolic encephalopathy). Mental status now back at baseline as of 10/08/24.
-U/A not suggestive of infection
-COVID/Flu NEG
-Imaging above and unremarkable
-was on empiric Rocephin, now transitioned to Cefdinir
-unclear why UCx sent with NEG U/A
-follow BCxs
-Leukocytosis now resolved
-stop IVFs
-with nuchal rigidity pt had LP on 10/07/24. Meningitis PCR panel negative, CSF with 2 WBC. CSF glucose/protein added on on 10/08/24. CSF Cx NG.
-ID following
Normocytic anemia:
-h/o recent upper GI bleed
-previously it was thought that the drop in hemoglobin on this admission was dilutional
-Despite normal MCV iron studies are indicative of iron deficiency anemia. Reticulocyte count and LDH normal. Haptoglobin pending.
-cont IV Fe
-Heme test stool
-melena 10/11/24 AM
-GI following
-cont PPI IV BID
-EGD 10/11/24 with severe esophagitis and large hiatal hernia
-Hb stabilized
Other problems:
Essential hypertension: Holding losartan-HCTZ with hypotension
Dementia: cont memantine
Hyperlipidemia: continue statin
Breast cancer: continue anastrozole
Hypokalemia, resolved
Patient's interested in hospice. Rajni Wild and Judy amato were updated over [employer] at 1143.
FULL/Lovenox
Anticipated Discharge: Within 24 hours
Subjective/Interval History
-
Date of Service: October 12, 2024
Patient currently not answering questions when asked.
Objective Data
-
Labs:
Laboratory Results
10/12/24
06:59
WBC 7.1
Hgb 7.8 L
Hct 23.8 L
Plt Count 455 H
Sodium Pending
Potassium Pending
Chloride Pending
Carbon Dioxide Pending
BUN Pending
Creatinine Pending
Glucose Pending
Calcium Pending
Vital Signs:
Vital Signs
Temp Pulse Resp BP Pulse Ox
97.9 F 77 18 120/58 98
10/12/24 03:00 10/12/24 03:00 10/12/24 03:00 10/12/24 03:00 10/12/24 03:00
I&O
10/11/24 10/12/24 10/13/24
06:59 06:59 06:59
Intake Total 680 / 680 480 / 480
Output Total 525 / 525
Balance 680 / 680 -45 / -45
[2024-10-12 07:45] LABS: Blood Urea Nitrogen 2 mg/dl (7-17); Calcium 8.3 mg/dl (8.4-10.2); Carbon Dioxide 28 mmol/L (22-30); Chloride 106 mmol/L (98-107); Estimated Creatinine Clearance 63 ml/min; Glucose 92 mg/dl (70-99); Potassium 3.5 mmol/L (3.5-5.1); Sodium 138 mmol/L (135-145); eGFR > 60.00
[2024-10-12] MEDS: OMNICEF 300 MG PO ×2 (09:43→20:42)
[2024-10-12] MEDS: NAMENDA 10 MG PO ×2 (09:43→20:42)
[2024-10-12] MEDS: LIPITOR 10 MG PO (09:43)
[2024-10-12] MEDS: PROTONIX IV 40 MG IV ×2 (09:43→20:42)
[2024-10-12] MEDS: MIRALAX PO (09:44)
[2024-10-12] MEDS: NSS (PRESERVATIVE FREE) 10 ML IV ×2 (09:44→20:42)
--- NOTE | 2024-10-12 11:27 | W.PN.ID1 ---
Date of Service
Date of Service: October 12, 2024
Today's Communication
Last day of cedinir.
Assessment / Plan
Encephalopathy
- appears back to baseline
Fever
- resolved
Hx breast CA
Dementia
HTN
HLD
GERD
Hiatal hernia
Leukocytosis
Recommendations:
CSF Meningitis panel by PCR : negative.
Cultures negative..
Patient apparently now back at baseline per .
Leukocytosis has resolved.
Continue cefdinir through today.
����������������������������������������������������������
Chief Complaint
-: Other (Encephalopathy)
Subjective / Review of Systems
No events.
Patient is stable, per .
Vital Signs / Physical Exam
Vital Signs
Vital Signs
Temp Pulse Resp BP Pulse Ox
97.6 F 73 16 133/66 95
10/12/24 07:35 10/12/24 07:35 10/12/24 07:35 10/12/24 07:35 10/12/24 07:35
Physical Exam
Constitutional: Comfortable and Chronically Ill
Cardiovascular: Regular Rate
Pulmonary: Non Labored
Gastrointestinal: Soft, Non Tender and Non Distended
Skin: Jaundice
Neurological: Awake and Alert
Psychological: Calm
Objective Data
Lab Data
Lab Results
10/12/24 06:59
10/12/24 06:59
PT 14.8 Sec (11.4-14.6) H 10/07/24 12:14
INR 1.13 10/07/24 12:14
Estimated Creat Clear 63 ml/min 10/12/24 06:59
Most recent labs reviewed.
Micro Results:
10/07/24 13:00 CSF Culture - Final
Csf No Growth After 5 Days - Final Report
Gram Stain - Final
10/06/24 19:40 Blood Culture - Final
Blood/Venous No Growth - Final Report
10/06/24 18:40 Blood Culture - Final
Blood/Venous No Growth - Final Report
10/06/24 18:40 Urine Culture - Final
Urine NO GROWTH
10/07/24 13:00 Meningitis/Encephalitis Panel (PCR) - Final
Csf
10/06/24 18:40 Influenza Types A & B (DAVID) - Final
Nasal Swab Negative for Influenza A & B, NAAT
Negative results must be combined with clinical observations
and patient history.
Nucleic Acid Amplification test (NAAT)performed on the
[employer] platform.
Meningitis Panel, CSF by PCR 10/07/24-1505
Escherichia coli K1 Not Detected
Haemophilus influenzae Not Detected
Listeria monocytogenes Not Detected
Neisseria meningitidis Not Detected
Cytomegalovirus (CMV) Not Detected
Streptococcus agalactiae Not Detected
Streptococcus pneumoniae Not Detected
Enterovirus Not Detected
Herpes simplex virus 1 Not Detected
Herpes simplex virus 2 Not Detected
Human herpesvirus 6 Not Detected
Human parechovirus Not Detected
Varicella zoster virus Not Detected
C. neoformans/gattii Not Detected
Imaging:
10/06/2024 CT head without contrast: No acute intracranial abnormality noted. Ventricles are normal in size, configuration and position for age. No intra or extra-axial mass, hemorrhage or fluid collection noted. Please see full dictation for
additional detail.
10/06/2024 CXR (portable): No focal infiltrates no pleural effusion. No visualized pneumothorax. Please see full dictation for additional detail. Film personally viewed.
[2024-10-12] MEDS: CARAFATE SUSPENSION 1 GM PO ×2 (12:28→17:44)
--- NOTE | 2024-10-12 13:22 | CM ---
Received consult for Hospice. Attempted to meet with patient however she was asleep. Placed a call to patient's spouse but number is not still active. Will make referral to Hospice. Will need to determine if patient will go back to [facility] on
Hospice or home.
Plan: Case management will continue to follow and assist with discharge planning. Hospice.
[2024-10-12] MEDS: FERRLECIT 110 MG IV (14:36)
--- NOTE | 2024-10-12 15:41 | HOSPNOTE ---
Met with patient and her to review hospice care revewied the hospice phylisophy. Patient and her stated they are not ready for care at this time, provided [facility] hospice information.
[2024-10-12] MEDS: LOVENOX 40 MG SC (17:44)
[2024-10-12] MEDS: ARIMIDEX 1 MG PO (17:44)
[2024-10-12] MEDS: ARICEPT 10 MG PO (20:42)
[2024-10-13] MEDS: CARAFATE SUSPENSION PO ×3 (01:48→23:15)
[2024-10-13 07:25] VITALS: BP 146/77
[2024-10-13 07:38] LABS: Blood Urea Nitrogen 2 mg/dl (7-17); Calcium 8.4 mg/dl (8.4-10.2); Carbon Dioxide 27 mmol/L (22-30); Chloride 106 mmol/L (98-107); Estimated Creatinine Clearance 63 ml/min; Glucose 90 mg/dl (70-99); Potassium 3.4 mmol/L (3.5-5.1); Sodium 136 mmol/L (135-145); eGFR > 60.00
[2024-10-13] MEDS: PROTONIX IV 40 MG IV ×2 (09:01→21:45)
[2024-10-13] MEDS: NSS (PRESERVATIVE FREE) 10 ML IV ×2 (09:02→21:46)
[2024-10-13] MEDS: LIPITOR 10 MG PO (09:02)
[2024-10-13] MEDS: MIRALAX 17 GRAMS PO (09:02)
[2024-10-13] MEDS: NAMENDA 10 MG PO ×2 (09:02→21:45)
--- NOTE | 2024-10-13 09:22 | CM ---
Addendum entered by Carolina Summers RN 10/13/24 18:00:
PAC Data given to for SNF choices.
Original Note:
SPoke with Eduardo his number id [phone] (admission contacted to change his number ) wants SNF for his not hospice.
Placed [facility] referral in care port .
TT for medical update to .
PLAN To SNf after located
[2024-10-13] MEDS: CARAFATE SUSPENSION 1 GM PO ×2 (11:17→16:19)
[2024-10-13] MEDS: KCL 40 MEQ PO (11:17)
--- NOTE | 2024-10-13 13:49 | W.PN.HOSP.TC ---
Today's Communication/Plan
-
stable for discharge
Assessment / Plan
Assessment / Plan
10/06/24 19:40 Blood/Venous Blood Culture - Final
No Growth - Final Report
10/06/24 18:40 Blood/Venous Blood Culture - Final
No Growth - Final Report
10/07/24 13:00 Csf CSF Culture - Preliminary
No Growth After 4 Days
10/07/24 13:00 Csf Gram Stain - Preliminary
10/06/24 18:40 Urine Urine Culture - Final
NO GROWTH
10/07/24 13:00 Csf Meningitis/Encephalitis Panel (PCR) - Final
10/06/24 18:40 Nasal Swab Influenza Types A & B (DAVID) - Final
Negative for Influenza A & B, NAAT
Negative results must be combined with clinical observations
and patient history.
Nucleic Acid Amplification test (NAAT)performed on the
[employer] ID NOW platform.
CT Brain: No acute intracranial abnormality noted.
CXR: No acute cardiopulmonary process.
78 y/o female with fever and lethargy on admission
CVS: S1-S2 normal
Chest: CTA B/L
Abdomen: Soft, NT / Bowel sounds present
Extremities: No edema
METER SUPERVISOR: Confused
# SIRS
Presented with fever, lethargy, leukocytosis, TME
Mental status improved as of 10/08/2024
Urine analysis not suggestive of UTI, COVID and influenza negative
CT of the brain no acute abnormality
Was on empiric Rocephin transitioned to cefdinir and now off.
Lumbar puncture obtained on 10/07/2024-meningitis PCR negative CSF with 2 WBCs cultures negative
# History of recent upper GI bleed
Melena on 10/11/2024
GI consulted
EGD 10/11/2024-severe esophagitis with large hiatal hernia
Hemoglobin stabilized
On Carafate ,PPI BID
# Thrombocytosis
# Hypokalemia- Replace
# Essential hypertension-Holding Losartan/Hydrochlorothiazide
# Hyperlipidemia-continue statin
# History of breast cancer-history of lumpectomy 2020-Continue Anastrozole
# Dementia-continue Memantine and Aricept , holding Risperidone
# Hypoalbuminemia
# DVT prophylaxis - Lovenox
# Full code
D/W case management
D/W RN at bed side
Long conversation with patient's who feels that he is not quite ready for hospice for his .
does not want Hospice , he wants rehab case management made aware.
Patient can be discharged when a bed is obtained.
Anticipated Discharge: Within 24 hours
Subjective/Interval History
-
Date of Service: October 13, 2024
Objective Data
-
Labs:
Laboratory Results
10/13/24 10/13/24
06:26 13:35
WBC Pending
Hgb Pending
Hct Pending
Plt Count Pending
Sodium 136
Potassium 3.4 L
Chloride 106
Carbon Dioxide 27
BUN 2 L
Creatinine 0.5 L
Glucose 90
Calcium 8.4
Vital Signs:
Vital Signs
Temp Pulse Resp BP Pulse Ox
98.2 F 76 16 146/77 100
10/13/24 07:25 10/13/24 07:25 10/13/24 07:25 10/13/24 07:25 10/13/24 08:55
I&O
10/12/24 10/13/24 10/14/24
06:59 06:59 06:59
Intake Total 480 / 480 480 / 480
Output Total 525 / 525
Balance -45 / -45 480 / 480
[2024-10-13] MEDS: FERRLECIT 110 MG IV (13:53)
[2024-10-13 14:08] LABS: Magnesium 1.7 mg/dl (1.6-2.3)
[2024-10-13 14:13] LABS: Hematocrit 26.1 % (37.0-47.0); Hemoglobin 8.6 g/dL (12.0-16.0); Mean Corpuscular Hgb 28.7 pg (27.0-31.0); Mean Platelet Volume 9.2 fL (7.4-10.4); Platelet Count 542 10^3/uL (130-400); Red Cell Dist. Width 14.2 % (11.5-14.5); White Blood Cell Count 11.4 10^3/uL (4.8-10.8)
[2024-10-13 15:30] VITALS: BP 123/59
[2024-10-13] MEDS: ARIMIDEX 1 MG PO (16:19)
[2024-10-13] MEDS: LOVENOX 40 MG SC (16:19)
[2024-10-13] MEDS: MAGNESIUM OXIDE 500 MG PO (16:19)
[2024-10-13] MEDS: ARICEPT 10 MG PO (21:45)
[2024-10-13 23:39] VITALS: BP 141/71
[2024-10-14] MEDS: CARAFATE SUSPENSION PO (06:24)
[2024-10-14 07:30] VITALS: BP 141/69
[2024-10-14 07:35] LABS: Blood Urea Nitrogen 4 mg/dl (7-17); Calcium 8.2 mg/dl (8.4-10.2); Carbon Dioxide 26 mmol/L (22-30); Chloride 108 mmol/L (98-107); Estimated Creatinine Clearance 63 ml/min; Glucose 88 mg/dl (70-99); Potassium 3.8 mmol/L (3.5-5.1); Sodium 138 mmol/L (135-145); eGFR > 60.00
[2024-10-14] MEDS: LIPITOR 10 MG PO (09:15)
[2024-10-14] MEDS: NAMENDA 10 MG PO ×2 (09:15→19:21)
[2024-10-14] MEDS: MAGNESIUM OXIDE 500 MG PO (09:15)
[2024-10-14] MEDS: MIRALAX PO (09:16)
[2024-10-14] MEDS: NSS (PRESERVATIVE FREE) IV ×2 (10:18→19:21)
[2024-10-14] MEDS: PROTONIX IV IV (10:19)
[2024-10-14] MEDS: CARAFATE SUSPENSION 1 GM PO ×2 (12:04→16:28)
--- NOTE | 2024-10-14 12:28 | W.PN.HOSP.TC ---
Today's Communication/Plan
-
Stable for discharge to rehab
Assessment / Plan
Assessment / Plan
10/06/24 19:40 Blood/Venous Blood Culture - Final
No Growth - Final Report
10/06/24 18:40 Blood/Venous Blood Culture - Final
No Growth - Final Report
10/07/24 13:00 Csf CSF Culture - Preliminary
No Growth After 4 Days
10/07/24 13:00 Csf Gram Stain - Preliminary
10/06/24 18:40 Urine Urine Culture - Final
NO GROWTH
10/07/24 13:00 Csf Meningitis/Encephalitis Panel (PCR) - Final
10/06/24 18:40 Nasal Swab Influenza Types A & B (DAVID) - Final
Negative for Influenza A & B, NAAT
Negative results must be combined with clinical observations
and patient history.
Nucleic Acid Amplification test (NAAT)performed on the
[employer] ID NOW platform.
CT Brain: No acute intracranial abnormality noted.
CXR: No acute cardiopulmonary process.
78 y/o female with fever and lethargy on admission
CVS: S1-S2 normal
Chest: CTA B/L
Abdomen: Soft, NT / Bowel sounds present
Extremities: No edema
PICK PACK WORKER: Confused
# SIRS
Presented with fever, lethargy, leukocytosis, TME
Mental status improved as of 10/08/2024
Urine analysis not suggestive of UTI, COVID and influenza negative
CT of the brain no acute abnormality
Was on empiric Rocephin transitioned to cefdinir and now off.
Lumbar puncture obtained on 10/07/2024-meningitis PCR negative CSF with 2 WBCs cultures negative
# History of recent upper GI bleed
Melena on 10/11/2024
GI consulted
EGD 10/11/2024-severe esophagitis with large hiatal hernia
Hemoglobin stabilized
On Carafate ,PPI BID
# Thrombocytosis
# Hypokalemia- Replace
# Essential hypertension-Holding Losartan/Hydrochlorothiazide
# Hyperlipidemia-continue statin
# History of breast cancer-history of lumpectomy 2020-Continue Anastrozole
# Dementia-continue Memantine and Aricept , holding Risperidone
# Hypoalbuminemia
# DVT prophylaxis - Lovenox
# Full code
D/W case management
D/W RN at bed side
Long conversation with patient's at bed side
Anticipated Discharge: Within 24 hours
Subjective/Interval History
-
Date of Service: October 14, 2024
Objective Data
-
Labs:
Laboratory Results
10/14/24
06:43
Sodium 138
Potassium 3.8
Chloride 108 H
Carbon Dioxide 26
BUN 4 L
Creatinine 0.5 L
Glucose 88
Calcium 8.2 L
Vital Signs:
Vital Signs
Temp Pulse Resp BP Pulse Ox
98 F 67 18 141/69 98
10/14/24 07:30 10/14/24 07:30 10/14/24 07:30 10/14/24 07:30 10/14/24 08:45
I&O
10/13/24 10/14/24 10/15/24
06:59 06:59 06:59
Intake Total 480 / 480 1310 / 1310
Balance 480 / 480 1310 / 1310
[2024-10-14] MEDS: PROTONIX PO ×3 (13:33→19:22)
[2024-10-14 15:09] VITALS: BP 141/80
[2024-10-14] MEDS: LOVENOX 40 MG SC (16:28)
[2024-10-14] MEDS: ARIMIDEX 1 MG PO (16:28)
[2024-10-14] MEDS: ARICEPT 10 MG PO (19:21)
[2024-10-15 00:12] VITALS: BP 123/77
[2024-10-15] MEDS: CARAFATE SUSPENSION 1 GM PO ×4 (00:13→17:28)
[2024-10-15 07:23] VITALS: BP 134/68
[2024-10-15] MEDS: NSS (PRESERVATIVE FREE) IV ×2 (07:36→19:06)
[2024-10-15 07:37] LABS: Blood Urea Nitrogen 6 mg/dl (7-17); Calcium 8.7 mg/dl (8.4-10.2); Carbon Dioxide 22 mmol/L (22-30); Chloride 107 mmol/L (98-107); Estimated Creatinine Clearance 63 ml/min; Glucose 101 mg/dl (70-99); Potassium 4.2 mmol/L (3.5-5.1); Sodium 137 mmol/L (135-145); eGFR > 60.00
[2024-10-15] MEDS: PROTONIX 40 MG PO ×2 (07:37→20:57)
[2024-10-15] MEDS: NAMENDA 10 MG PO ×2 (07:38→20:57)
[2024-10-15] MEDS: MAGNESIUM OXIDE 500 MG PO (07:38)
[2024-10-15] MEDS: FEOSOL 325 MG PO (07:38)
[2024-10-15] MEDS: LIPITOR 10 MG PO (07:38)
[2024-10-15] MEDS: MIRALAX 17 GRAMS PO (07:53)
--- NOTE | 2024-10-15 11:25 | CM ---
Addendum entered by FRENCH Fischer 10/15/24 14:51:
Received call from Nathaly from [facility] who stated that she can accept patient tomorrow morning at 10am as she was unable to reach patient's spouse until later in the afternoon.
Spouse to transport. Will cancel transportation for today.
Addendum entered by FRENCH Fischer 10/15/24 13:13:
Received return call back from Nathaly in admissions who stated that she can accept patient today. # For report [phone]
Attending updated.
Will update spouse.
IMM info reviewed in morning. Signed on chart.
Original Note:
Placed a call to [facility] to determine if they will be able to accept patient. Per attending patient medically stable today. Spoke with Nathaly who stated that she would call back after she reviewed referral. If they are unable to accept patient,
will ask spouse for further options.
Plan: Case management will continue to follow and assist with discharge planning. SNF when bed found.
--- NOTE | 2024-10-15 12:23 | W.PN.HOSP.TC ---
Addendum entered and electronically signed by Cecilio Harkins MD 10/15/24 13:24:
Moderate protein calorie malnutrition
Pt has a bed [facility]
More than 30 minutes spent in discharge including
Final examination of the patient
Summarizing hospital stay
Instructions for continuing care to all relevant caregivers
Preparation of discharge records, prescriptions, and referral forms
Total time spent (in minutes): 33 min
Original Note:
Today's Communication/Plan
-
Has been medically stable for discharge
Assessment / Plan
Assessment / Plan
10/06/24 19:40 Blood/Venous Blood Culture - Final
No Growth - Final Report
10/06/24 18:40 Blood/Venous Blood Culture - Final
No Growth - Final Report
10/07/24 13:00 Csf CSF Culture - Preliminary
No Growth After 4 Days
10/07/24 13:00 Csf Gram Stain - Preliminary
10/06/24 18:40 Urine Urine Culture - Final
NO GROWTH
10/07/24 13:00 Csf Meningitis/Encephalitis Panel (PCR) - Final
10/06/24 18:40 Nasal Swab Influenza Types A & B (DAVID) - Final
Negative for Influenza A & B, NAAT
Negative results must be combined with clinical observations
and patient history.
Nucleic Acid Amplification test (NAAT)performed on the
[employer] platform.
CT Brain: No acute intracranial abnormality noted.
CXR: No acute cardiopulmonary process.
78 y/o female with fever and lethargy on admission
CVS: S1-S2 normal
Chest: CTA B/L
Abdomen: Soft, NT / Bowel sounds present
Extremities: No edema
MUSIC ARTIST: Confused
# SIRS
Presented with fever, lethargy, leukocytosis, TME
Mental status improved as of 10/08/2024
Urine analysis not suggestive of UTI, COVID and influenza negative
CT of the brain no acute abnormality
Was on empiric Rocephin transitioned to cefdinir and now off.
Lumbar puncture obtained on 10/07/2024-meningitis PCR negative CSF with 2 WBCs cultures negative
# History of recent upper GI bleed
Melena on 10/11/2024
EGD 10/11/2024-severe esophagitis with large hiatal hernia
Hemoglobin stabilized
On Carafate ,PPI BID
# Thrombocytosis
# Hypokalemia- Replace
# Essential hypertension-Holding Losartan/Hydrochlorothiazide
# Hyperlipidemia-continue statin
# History of breast cancer-history of lumpectomy 2020-Continue Anastrozole
# Dementia-continue Memantine and Aricept , holding Risperidone
# Hypoalbuminemia
# DVT prophylaxis - Lovenox
# Full code
D/W case management
D/W RN at bed side
D/W patient's at bed side
Anticipated Discharge: Today
Subjective/Interval History
-
Date of Service: October 15, 2024
Objective Data
-
Labs:
Laboratory Results
10/15/24
06:24
Sodium 137
Potassium 4.2
Chloride 107
Carbon Dioxide 22
BUN 6 L
Creatinine 0.5 L
Glucose 101 H
Calcium 8.7
Vital Signs:
Vital Signs
Temp Pulse Resp BP Pulse Ox
98.4 F 70 18 134/68 100
10/15/24 07:23 10/15/24 07:23 10/15/24 07:23 10/15/24 07:23 10/15/24 10:43
I&O
10/14/24 10/15/24 10/16/24
06:59 06:59 06:59
Intake Total 1310 / 1310 600 / 600
Balance 1310 / 1310 600 / 600
--- NOTE | 2024-10-15 13:07 | PN.CDI ---
CDI
- -
CDI:
Physician Documentation Request
Admit Date: 10/06/24 22:29
Dear Doctor Shahana,
Please review the following and provide your response in the progress notes.
Clinical Indicators:
- Machinist [employer] note indicates moderate protein calorie malnutrition
- Unintenstional weight loss >5% in 1 month
- Nutrient intake </=75% estimated energy needs, >/= 1 month
Based on the above information and your assessment, which of the following most accurately represents the patient's nutritional status?
Moderate protein calorie malnutrition
Other (please specify)
[place] Criteria ([facility] Hospitalist 2017)
2 or more criteria must be present for either
non severe or severe malnutrition
Note that the criteria differs related to the
presence of an acute or chronic illness
Acute Illness Chronic Illness
Energy Intake Non Severe: <75% for >7 days Non Severe: <75% for >1 month
Severe: <50% for >5 days Severe: <75% for >1 month
Weight Loss Non Severe: 1-2% over 1 week Non Severe: 5% over 1 month
5% over 1 month 7.5% over 3 months
7.5% over 3 months 10% over 6 months
1 year N/A 20% over 1 year
Severe: >2% over 1 week Severe: >5% over 1 month
>5% over 1 month >7.5% over 3 months
>7.5% over 3 months >10% over 6 months
1 year N/A >20% over 1 year
Body Fat Non Severe: Mild Decrease Non Severe: Mild Loss
Severe: Moderate Decrease Severe: Severe Loss
Muscle Mass Non Severe: Mild Decrease Non Severe: Mild Loss
Severe: Moderate Decrease Severe: Severe Loss
Fluid Accumulation Non Severe: Mild Accumulation Non Severe: Mild Accumulation
Severe: Moderate to severe Severe: Moderate to severe
accumulation accumulation
Reduced Senior Product Marketing Manager Strength Non Severe: N/A Non Severe: N/A
Severe: Measurably reduced Severe: Measurably reduced
Additional criteria that can be used to Determine if Mild or Moderate Malnutrition (Merck Manual 2018)
Mild Moderate Severe
Albumin gm/dl <3.0 gm/dl <2.5 gm/dl <2.0 gm/dl
Pre Albumin mg/dl <15 gm/dl <10 mg/dl <5.0 mg/dl
BMI <18.5 <17 <16
Use of terms such as suspected, likely, concern for, or probable (associated with a specific diagnosis that is being evaluated, monitored, or treated as if it exists) are acceptable and can be coded in the inpatient setting, when documented at the
time of discharge.
Thank you,
Ramsey Hilliard RN
CDI Specialist
Please use your independent medical judgment in providing your response.
--- NOTE | 2024-10-15 13:29 | W.DS.TRANS ---
Addendum entered and electronically signed by Cecilio Harkins MD 10/15/24 13:45:
Dictation- [id number]
Original Note:
DC Summary - [employer]
-
Discharge Instructions:
Discharge Diagnosis/Procedures SIRS
Esophagitis and large hiatal hernia-GI bleed
Hypokalemia
Hypertension
Hyperlipidemia
History of breast cancer
Dementia
Diet Other diet
Additional Diets IDDSI 4-pur�ed diet
Activity As tolerated,With assistance
Driving Restrictions No driving
Blood Work cbc, bmp 1 week
Other Services OT,PT,ST
Instructions:
Stand-Alone Forms:
Changes to Home Medications: Yes
Discharge Medications:
DC Medications w/original date entered in [facility]
anastrozole 1 mg tablet 1 mg PO QPM Cancer 09/25/24
donepezil 10 mg tablet 10 mg PO HS Neurological Condition 09/25/24
memantine 10 mg tablet 10 mg PO BID Neurological Condition 09/25/24
simvastatin 20 mg tablet 20 mg PO QPM High Cholesterol 09/25/24
acetaminophen 325 mg tablet 650 mg (2 x 325 mg) PO Q4HPRN PRN mild pain/CATHERINE/temp> 100.4F #0 tabs 10/15/24
ferrous sulfate 325 mg (65 mg iron) tablet (FeroSul) 325 mg PO DAILY anemia #0 tabs 10/15/24
fexofenadine 180 mg tablet 180 mg PO HS Allergies #0 tabs 10/15/24
magnesium oxide 500 mg PO DAILY Electrolyte Repletion #0 tabs 10/15/24
pantoprazole 40 mg tablet,delayed release 40 mg PO BID Gastrointestinal issue #0 tabs 10/15/24
polyethylene glycol 3350 17 gram oral powder packet 17 g PO DAILY Gastrointestinal issue #0 ea 10/15/24
sucralfate 100 mg/mL oral suspension 1 gm PO Q6 Gastrointestinal issue #0 mL 10/15/24
Home Medication Changes
Lisinopril hydrochlorothiazide and risperidone stopped
Carafate, MiraLAX, magnesium oxide-new
Pending Results: No
--- NOTE | 2024-10-15 14:49 | W.PN.ID1 ---
Date of Service
Date of Service: October 15, 2024
Today's Communication
Observe off antibiotics.
Assessment / Plan
Encephalopathy
- appears back to baseline
Fever
- resolved
Hx breast CA
Dementia
HTN
HLD
GERD
Hiatal hernia
Leukocytosis
Recommendations:
CSF Meningitis panel by PCR : negative.
Cultures negative..
Patient apparently now back at baseline per .
Leukocytosis has resolved.
Has completed course of cefdinir. Observe off antibiotics.
����������������������������������������������������������
Chief Complaint
-: Other (Encephalopathy)
Subjective / Review of Systems
Review of Systems: No Fever and No Chills
Vital Signs / Physical Exam
Vital Signs
Vital Signs
Temp Pulse Resp BP Pulse Ox
98.4 F 70 18 134/68 100
10/15/24 07:23 10/15/24 07:23 10/15/24 07:23 10/15/24 07:23 10/15/24 10:43
Physical Exam
Constitutional: No Acute Distress, Comfortable and Non-toxic
Pulmonary: Non Labored
Skin: Negative Rash or Jaundice
Neurological: Awake
Psychological: Calm
Objective Data
Lab Data
Lab Results
10/13/24 13:51
10/15/24 06:24
PT 14.8 Sec (11.4-14.6) H 10/07/24 12:14
INR 1.13 10/07/24 12:14
Estimated Creat Clear 63 ml/min 10/15/24 06:24
Most recent labs reviewed.
Micro Results:
10/07/24 13:00 CSF Culture - Final
Csf No Growth After 5 Days - Final Report
Gram Stain - Final
10/06/24 19:40 Blood Culture - Final
Blood/Venous No Growth - Final Report
10/06/24 18:40 Blood Culture - Final
Blood/Venous No Growth - Final Report
10/06/24 18:40 Urine Culture - Final
Urine NO GROWTH
10/07/24 13:00 Meningitis/Encephalitis Panel (PCR) - Final
Csf
10/06/24 18:40 Influenza Types A & B (DAVID) - Final
Nasal Swab Negative for Influenza A & B, NAAT
Negative results must be combined with clinical observations
and patient history.
Nucleic Acid Amplification test (NAAT)performed on the
[employer] platform.
Meningitis Panel, CSF by PCR 10/07/24-1505
Escherichia coli K1 Not Detected
Haemophilus influenzae Not Detected
Listeria monocytogenes Not Detected
Neisseria meningitidis Not Detected
Cytomegalovirus (CMV) Not Detected
Streptococcus agalactiae Not Detected
Streptococcus pneumoniae Not Detected
Enterovirus Not Detected
Herpes simplex virus 1 Not Detected
Herpes simplex virus 2 Not Detected
Human herpesvirus 6 Not Detected
Human parechovirus Not Detected
Varicella zoster virus Not Detected
C. neoformans/gattii Not Detected
Imaging:
10/06/2024 CT head without contrast: No acute intracranial abnormality noted. Ventricles are normal in size, configuration and position for age. No intra or extra-axial mass, hemorrhage or fluid collection noted. Please see full dictation for
additional detail.
10/06/2024 CXR (portable): No focal infiltrates no pleural effusion. No visualized pneumothorax. Please see full dictation for additional detail. Film personally viewed.
[2024-10-15 16:12] VITALS: BP 144/67
[2024-10-15] MEDS: ARIMIDEX 1 MG PO (17:27)
[2024-10-15] MEDS: LOVENOX 40 MG SC (17:28)
[2024-10-15] MEDS: TYLENOL 650 MG PO (20:56)
[2024-10-15] MEDS: ARICEPT 10 MG PO (20:57)
[2024-10-15] MEDS: MELATONIN 5 MG PO (20:57)
[2024-10-15 23:49] VITALS: BP 141/68
[2024-10-16] MEDS: CARAFATE SUSPENSION 1 GM PO ×2 (00:39→04:42)
[2024-10-16 07:25] VITALS: BP 131/65
[2024-10-16] MEDS: NAMENDA 10 MG PO (07:48)
[2024-10-16] MEDS: MIRALAX 17 GRAMS PO (07:48)
[2024-10-16] MEDS: MAGNESIUM OXIDE 500 MG PO (07:48)
[2024-10-16] MEDS: FEOSOL 325 MG PO (07:48)
[2024-10-16] MEDS: LIPITOR 10 MG PO (07:48)
[2024-10-16] MEDS: PROTONIX 40 MG PO (07:48)
[2024-10-16] MEDS: NSS (PRESERVATIVE FREE) IV (07:49)
[2024-10-16 08:27] LABS: Blood Urea Nitrogen 5 mg/dl (7-17); Calcium 8.4 mg/dl (8.4-10.2); Carbon Dioxide 25 mmol/L (22-30); Chloride 106 mmol/L (98-107); Estimated Creatinine Clearance 63 ml/min; Glucose 98 mg/dl (70-99); Sodium 137 mmol/L (135-145); eGFR > 60.00
--- NOTE | 2024-10-16 08:28 | W.PN.ID1 ---
Date of Service
Date of Service: October 16, 2024
Today's Communication
Observe off antibiotics.
Assessment / Plan
Encephalopathy
- appears back to baseline
Fever
- resolved
Hx breast CA
Dementia
HTN
HLD
GERD
Hiatal hernia
Leukocytosis
Recommendations:
CSF Meningitis panel by PCR : negative.
Cultures negative.
Patient at baseline per .
Leukocytosis has resolved.
Has completed course of cefdinir. Continue off antibiotics.
����������������������������������������������������������
Chief Complaint
-: Other (Encephalopathy)
Subjective / Review of Systems
Patient seen and examined. No reported issues overnight.
Review of Systems: No Fever and No Cough
Vital Signs / Physical Exam
Vital Signs
Vital Signs
Temp Pulse Resp BP Pulse Ox
97.5 F 67 18 141/68 97
10/15/24 23:49 10/15/24 23:49 10/15/24 23:49 10/15/24 23:49 10/16/24 08:00
Physical Exam
Constitutional: No Acute Distress, Comfortable, Chronically Ill and Non-toxic
Eyes: Sclera Anicteric
Pulmonary: Non Labored
Gastrointestinal: Non Distended and Normal Bowel Sounds
Neurological: Awake and Other (Minimally verbal for me.)
Psychological: Calm
Objective Data
Lab Data
Lab Results
10/13/24 13:51
10/16/24 07:19
PT 14.8 Sec (11.4-14.6) H 10/07/24 12:14
INR 1.13 10/07/24 12:14
Estimated Creat Clear 63 ml/min 10/16/24 07:19
Most recent labs reviewed.
Micro Results:
10/07/24 13:00 CSF Culture - Final
Csf No Growth After 5 Days - Final Report
Gram Stain - Final
10/06/24 19:40 Blood Culture - Final
Blood/Venous No Growth - Final Report
10/06/24 18:40 Blood Culture - Final
Blood/Venous No Growth - Final Report
10/06/24 18:40 Urine Culture - Final
Urine NO GROWTH
10/07/24 13:00 Meningitis/Encephalitis Panel (PCR) - Final
Csf
10/06/24 18:40 Influenza Types A & B (DAVID) - Final
Nasal Swab Negative for Influenza A & B, NAAT
Negative results must be combined with clinical observations
and patient history.
Nucleic Acid Amplification test (NAAT)performed on the
[employer] platform.
Meningitis Panel, CSF by PCR 10/07/24-1505
Escherichia coli K1 Not Detected
Haemophilus influenzae Not Detected
Listeria monocytogenes Not Detected
Neisseria meningitidis Not Detected
Cytomegalovirus (CMV) Not Detected
Streptococcus agalactiae Not Detected
Streptococcus pneumoniae Not Detected
Enterovirus Not Detected
Herpes simplex virus 1 Not Detected
Herpes simplex virus 2 Not Detected
Human herpesvirus 6 Not Detected
Human parechovirus Not Detected
Varicella zoster virus Not Detected
C. neoformans/gattii Not Detected
Imaging:
10/06/2024 CT head without contrast: No acute intracranial abnormality noted. Ventricles are normal in size, configuration and position for age. No intra or extra-axial mass, hemorrhage or fluid collection noted. Please see full dictation for
additional detail.
10/06/2024 CXR (portable): No focal infiltrates no pleural effusion. No visualized pneumothorax. Please see full dictation for additional detail. Film personally viewed.
--- NOTE | 2024-10-16 09:48 | W.PN.UPDATE ---
Update Note
Progress Note Update
Patient did not leave yesterday because rehab could not accept her. Seen and examined this morning. Patient was awake pleasantly confused
was at bedside
Vitals reviewed
Exam was unremarkable
Labs reviewed
Discussed with nursing
Okay for discharge as planned.
== END 2024-10-16 09:29 | DRG 91 ==
LOC: 4 EAST ACU 22:29
PROVIDERS: Internal Medicine; Internal Medicine Gastroenterology; Nurse Practitioner; Radiology Vascular & Interventional Radiology; Registered Nurse; ADMITTING PHYSICIAN Hospitalist; ATTENDING PHYSICIAN Hospitalist; CONSULT PHYSICIAN Internal Medicine; CONSULT PHYSICIAN Internal Medicine Infectious Disease; EMERGENCY PHYSICIAN Emergency Medicine; FAMILY PHYSICIAN Family Medicine
PROC: B01B1ZZ Fluoroscopy of Spinal Cord using Low Osmolar Contrast (ICD-10-PCS; 2024-10-07)
PROC: 009U3ZX Drainage of Spinal Canal, Percutaneous Approach, Diagnostic (ICD-10-PCS; 2024-10-07)
PROC: 0DB78ZX Excision of Stomach, Pylorus, Via Natural or Artificial Opening Endoscopic, Diagnostic (ICD-10-PCS; 2024-10-12)
DX: G92.8 Other toxic encephalopathy (principal); R65.11 Systemic inflammatory response syndrome (SIRS) of non-infectious origin with acute organ dysfunction; E44.0 Moderate protein-calorie malnutrition; Z11.52 Encounter for screening for COVID-19; I10 Essential (primary) hypertension; F03.90 Unspecified dementia, unspecified severity, without behavioral disturbance, psychotic disturbance, mood disturbance, and anxiety; C50.919 Malignant neoplasm of unspecified site of unspecified female breast; Z79.811 Long term (current) use of aromatase inhibitors; Z87.891 Personal history of nicotine dependence; K44.9 Diaphragmatic hernia without obstruction or gangrene; K31.89 Other diseases of stomach and duodenum; D64.9 Anemia, unspecified; E78.00 Pure hypercholesterolemia, unspecified; K21.00 Gastro-esophageal reflux disease with esophagitis, without bleeding; E87.6 Hypokalemia; Z68.20 Body mass index [BMI] 20.0-20.9, adult
CPT/HCPCS: 88305; 62328; 70450; 71045; 80048; 81003; 81015; 82040; 82728; 83010; 83540; 83550; 83615; 83735; 85025; 85027; 85045; 85610; 86255; 87015; 87040; 87070; 87086; 87205; 87476; 87483; 87502; 87811; 88342; 89051; 93005; 96360; 96361; 97163; 97167; 97530; 97535; 99285; J2916

== ENCOUNTER 2024-11-19 15:22 | Emergency (ER) | payer MEDICARE, OTHER, SELFPAY ==
[2024-11-19 15:26] VITALS: BP 132/87
[2024-11-19 15:53] LABS: % Basophils 0.3 % (0-2); % Eosinophils 0.3 % (0-6); % Immature Granulocytes 0.4 % (0-0.5); % Lymphocytes 9.2 % (20.5-51.1); % Monocytes 8.3 % (1.7-9.3); % Neutrophils 81.5 % (42.2-75.2); Absolute Immature Granulocytes 0.1 10^3/uL (0-0.05); Absolute Lymphocytes 1.1 10^3/uL (1.2-3.4); Absolute Neutrophils 9.7 10^3/uL (1.4-6.5); Hematocrit 33.8 % (37.0-47.0); Hemoglobin 10.8 g/dL (12.0-16.0); Mean Corpuscular Volume 84.5 fL (81.0-99.0); Mean Platelet Volume 9.4 fL (7.4-10.4); Nucleated Red Blood Cells % 0 %; Platelet Count 350 10^3/uL (130-400); Red Cell Dist. Width 15.1 % (11.5-14.5); White Blood Cell Count 11.9 10^3/uL (4.8-10.8)
--- NOTE | 2024-11-19 15:56 | ED.GENMED ---
History of Present Illness
General
Chief Complaint: Abdominal Symptoms
Source: patient, spouse, ambulance crew and snf
Exam Limitations: dementia
Time Seen by Provider: 11/19/24 15:32
Nursing documentation reviewed up to this point in time: agreed with
History of Present Illness
History of Present Illness:
Patient with history of dementia, presents to ED from snf secondary to abdominal pain associated with vomiting this afternoon, with concern for recurrent small bowel obstruction. Upon arrival, patient is alert and awake but confused.
Patient has no complaints. Unable to obtain any further information at this time.
Past History
Past History
ED Past Medical History: HTN, Hypercholesterolemia and Other (Dementia)
ED Past Surgical History: Gynecological (Lumpectomy/hemorrhoidectomy) and Orthopedic
Review of Systems
Review of Systems
Allergies reviewed?: Yes
Unable to obtain full review of systems at this time due to: dementia
All Other Systems: Not applicable
Phy Exam
Physical Exam
Physical Exam:
Physical Exam
General: no apparent distress, not acutely ill. afebrile
Head: nc/at. eomi
Neck: supple. no meningeal signs.
Heart: s1/s2 regular rate and rhythm, no murmur. equal radial pulses.
Lungs: no acute respiratory distress. clear bilaterally
Abdomen: normal bowel sounds. not tender. no distention
Neuro: alert and oriented x 1. no focal neurological deficits
Skin: no rash
Psychiatric: well kept. interactive and cooperative
Extremities: no edema. no calf tenderness.
Course
Orders/Labs/Results
Orders:
Orders
11/19/24 15:39
Type+Screen Urgent
Complete Blood Count/With Diff Urgent
Comprehensive Metabolic Panel Urgent
PTT Urgent
11/19/24 15:51
CR Obstruct Series W/pa Chest Urgent
Comment:
Reason For Exam: abd pain w hx SBO
11/19/24 17:07
Phosphate Enema [Fleet Phosphate Enema-Adult] 135 ml RECTAL NOW STA
11/19/24 17:08
Phosphate Enema [Fleet Phosphate Enema-Adult] 135 ml .ROUTE .STK-MED ONE
Abnormal Lab Results
11/19/24
15:39
WBC 11.9 H 10^3/uL
(4.8-10.8)
RBC 4.00 L 10^6/uL
(4.20-5.40)
Hgb 10.8 L g/dL
(12.0-16.0)
Hct 33.8 L %
(37.0-47.0)
MCHC 32.0 L g/dL
(33.0-37.0)
RDW 15.1 H %
(11.5-14.5)
Abs Immat Gran (auto) 0.1 H 10^3/uL
(0-0.05)
Absolute Neuts (auto) 9.7 H 10^3/uL
(1.4-6.5)
Absolute Lymphs (auto) 1.1 L 10^3/uL
(1.2-3.4)
Absolute Monos (auto) 1.0 H 10^3/uL
(0.1-0.6)
Neutrophils % 81.5 H %
(42.2-75.2)
Lymphocytes % 9.2 L %
(20.5-51.1)
11/19/24 15:39
11/19/24 15:39
Vital Signs
Initial and Last Documented VS:
Initial Vital Signs
Temp Pulse Resp BP Pulse Ox
98.6 F 78 18 132/87 98
11/19/24 15:26 11/19/24 15:26 11/19/24 15:26 11/19/24 15:26 11/19/24 15:26
Last Documented Vital Signs
Temp Pulse Resp BP Pulse Ox
98.6 F 78 18 132/87 96
11/19/24 15:26 11/19/24 15:26 11/19/24 15:26 11/19/24 15:26 11/19/24 16:00
MDM/Problems Addressed
MDM/Problems Addressed:
X-ray report reviewed and discussed with patient and spouse at bedside.
Rectal exam performed at bedside with Abeba FIERRO, at bedside. Large volume of soft stool noted in rectum, unable to be removed manually. Fleet enema will be administered. Patient presenting symptoms likely secondary to ileus versus moderate
constipation versus already identified esophagitis noted during endoscopy last month. Abdominal exam remains soft and benign, without any further vomiting episodes. Patient already on PPI and Carafate in snf, when discussed with nursing
staff at [facility]. No indication for further workup at this time. Patient remains afebrile, hemodynamically stable, and without any distress. Patient will be discharged back to snf with recommendation to continue bowel regimen,
including MiraLAX/magnesium citrate, along with dietary changes.
*Critical Care Note
Total Time (30-74mins, 75-104mins- exclusive of procedures): Not Applicable
ED Attending Note
-
Portions of this chart may have been created with voice recognition software.� Occasional wrong word or��sound alike� substitutions may have occurred due to the inherent limitations of voice recognition software.
Discharge Plan
Departure
Patient Disposition: [facility]/SNF
Date of Disposition: 11/19/24
Time of Disposition: 17:19
Patient with high blood pressure during this ER visit?: Yes
Discharge Problem:
Constipation, Gastritis
Instructions: Constipation, Adult (DC), Gastritis - ED discharge instructions
Prescriptions:
No Action
anastrozole 1 mg Tablet
1 mg PO QPM
donepezil 10 mg Tablet
10 mg PO HS
simvastatin 20 mg Tablet
20 mg PO QPM
memantine 10 mg Tablet
10 mg PO BID
acetaminophen 325 mg Tablet
650 mg PO Q4HPRN PRN (Reason: mild pain/CATHERINE/temp> 100.4F) Qty: 0 0RF
polyethylene glycol 3350 17 gram Powder In Packet
17 g PO DAILY Qty: 0 0RF
ferrous sulfate [FeroSul] 325 mg (65 mg iron) Tablet
325 mg PO DAILY Qty: 0 0RF
magnesium oxide 500 mg magnesium Tablet
500 mg PO DAILY Qty: 0 0RF
fexofenadine 180 mg Tablet
180 mg PO HS Qty: 0 0RF
losartan 50 mg Tablet
50 mg PO DAILY
trazodone 50 mg Tablet
50 mg PO HS
magnesium hydroxide [Milk of Magnesia] 400 mg/5 mL Suspension
2,400 mg PO DAILYPRN PRN (Reason: if no bm by 9 shifts)
bisacodyl [Dulcolax (bisacodyl)] 10 mg Suppository
10 mg NV DAILYPRN PRN (Reason: if no bm by 12 shifts)
Fleet Enema 19-7 gram/118 mL Enema
118 ml NV DAILYPRN PRN (Reason: if no bm on 4th day)
pantoprazole [Protonix] [address] For Susp In Packet
40 mg PO DAILY
sucralfate 100 mg/mL suspension
10 ml PO QID
Referrals:
Fili Celis MD [Non-Admitting Privileges] -
Activity Restrictions/Additional Instructions:
As discussed, you are being discharged back to snf for continual care. Strongly recommend continuing with bowel regimen, as there is significant stool burden noted on exam, as well as on imaging study. Please consider return to ED with
worsening symptoms, i.e. fever/worsening pain/persistent vomiting
Interventions
Interventions:
*Risk Screen - Suicide Last Done: 11/19/24 15:39
*General Assessment Last Done: 11/19/24 15:39
*Neglect/Abuse Screening Last Done: 11/19/24 15:39
*ED- Fall Risk Assessment Last Done: 11/19/24 15:39
*ED COVID-19 Vaccine History Last Done: 11/19/24 15:39
*Nursing Disposition Last Done: 11/19/24 18:46
IP-Vyqvoy-Zhuiicboqx Assessment Last Done: 11/19/24 15:50
Discharge Date and Time
Discharge Date/Time: 11/19/24 18:52
Print Language: HEBREW
[2024-11-19 16:00] LABS: APTT 32.3 Sec (23.4-35.0)
[2024-11-19 16:02] LABS: ALT (SGPT) < 10 U/L (0-35); AST (SGOT) 16 U/L (14-36); Albumin 3.8 g/dl (3.5-5.0); Alkaline Phosphatase 89 U/L (38-126); Blood Urea Nitrogen 13 mg/dl (7-17); Carbon Dioxide 28 mmol/L (22-30); Chloride 103 mmol/L (98-107); Glucose 95 mg/dl (70-99); Potassium 4.2 mmol/L (3.5-5.1); Sodium 136 mmol/L (135-145); Total Bilirubin 0.4 mg/dl (0.2-1.3); Total Protein 6.8 g/dl (6.3-8.2); eGFR > 60.00
[2024-11-19] MEDS: FLEET PHOSPHATE ENEMA-ADULT 135 ML RECTAL (17:20)
== END 2024-11-19 18:52 ==
LOC: EMR 15:22
PROVIDERS: EMERGENCY PHYSICIAN Emergency Medicine; FAMILY PHYSICIAN Internal Medicine
DX: K59.00 Constipation, unspecified (principal); K29.70 Gastritis, unspecified, without bleeding; I10 Essential (primary) hypertension; E78.00 Pure hypercholesterolemia, unspecified; F03.90 Unspecified dementia, unspecified severity, without behavioral disturbance, psychotic disturbance, mood disturbance, and anxiety
CPT/HCPCS: 99284; 74022; 80053; 85025; 85730; 86850; 86900; 86901

== ENCOUNTER 2025-02-14 03:43 | Inpatient (IN) | payer MEDICARE, OTHER, SELFPAY ==
[2025-02-13 23:02] VITALS: BP 106/73
[2025-02-13 23:03] VITALS: BP 106/73; BMI 21.1
[2025-02-13 23:28] LABS: Hematocrit 33.4 % (37.0-47.0); Hemoglobin 10.6 g/dL (12.0-16.0); Mean Corp Hgb Conc. 31.7 g/dL (33.0-37.0); Mean Corpuscular Volume 78.4 fL (81.0-99.0); Nucleated Red Blood Cells % 0 %; Platelet Count 386 10^3/uL (130-400); Red Cell Dist. Width 18.0 % (11.5-14.5)
--- NOTE | 2025-02-13 23:41 | ED.GENMED ---
History of Present Illness
General
Chief Complaint: Abnormal Lab Value
Source: family and ambulance crew
Exam Limitations: clinical condition and dementia
Time Seen by Provider: 02/13/25 23:12
Nursing documentation reviewed up to this point in time: agreed with
History of Present Illness
History of Present Illness:
pt is a 79 y/o F with h/o dementia
unable to provide history
here from [facility]
completed 10 days omnicef for UTI but also had CXR showing mild pna RLL on 01/27
she is still coughing apparently but according to RN i spoke with from [facility] pt is now much more lethargic, not responding to commands, and weak, not eating the past 2-3 days
she is DNR but not DNH
her was apaprently called but he didn't call back
she is not opening her eyes, but withdrawals to pain only
she apparently has vomited a few times the past few days when trying to take PO
Past History
Past History
ED Past Medical History: HTN, Hypercholesterolemia and Other (Dementia)
ED Past Surgical History: Gynecological (Lumpectomy/hemorrhoidectomy) and Orthopedic
Review of Systems
Review of Systems
Allergies reviewed?: Yes
Unable to obtain full review of systems at this time due to: dementia
Other source history: retirement
All Other Systems: Not applicable
Phy Exam
Physical Exam
Physical Exam:
GENERAL: Asleep, minimally arouses to painful stimuli, occasionally verbal stimuli otherwise lethargic
EYE: pupils equal and reactive
NECK: Supple
ENT: o/p clr, mmm.
CARDIAC: Regular rate and rhythm .
LUNGS: Diminished, junky occasional cough no acute respiratory distress, no wheezes/rales/rhonchi
ABDOMEN: Soft, without focal tenderness, no r/g, no cvat, normal bowel sounds
Brown stool in her rectum, temp 100.3
NEUROLOGICAL: Lethargic, dementia not following commands
SKIN: Warm and dry, skin intact.
MUSCULOSKELETAL: No edema, well perfused. neg alena's sign
PSYCH: Dementia
Sepsis
Sepsis Screening
Sepsis Assessment: Sepsis Ruled Out
Sepsis Screen
Sepsis Screen: Sepsis Ruled Out
Date: 02/14/25
Time: 02:42
Course
Orders/Labs/Results
Orders:
Orders
02/13/25 23:12
Complete Blood Count/With Diff Urgent
Comprehensive Metabolic Panel Urgent
02/13/25 23:40
Straight cath- Treatment ONCE
Lactic Acid Urgent
02/13/25 23:45
Blood Culture Q30M
KORI Source: Blood/Venous
Specimen Description:
02/13/25 23:50
0.9% Sodium Chloride 1000 ml [Nss] 1,000 ml IV BOLUS
02/14/25
CT Head W/o Iv Contrast Urgent
Reason For Exam: ams
02/14/25 00:05
CR Chest Portable - 1 View Urgent
Reason For Exam: leukocytosis, ams
Reason Study Needs to be Portable: Other
02/14/25 00:11
CT Abd/Pel (IV only)-DH only Urgent
Comment:
Reason For Exam: sepsis, ams, recent UTI
02/14/25 00:14
Blood Culture Q30M
KORI Source: Blood/Venous
Specimen Description:
02/14/25 01:31
Piperacillin/Tazo 3.375 Gram [Zosyn] 3.375 gram in 50 ml IV NOW
02/14/25 01:41
Urinalysis Reflex To Culture Urgent
Date Specimen was Collected: 02/14/25
Abnormal Lab Results
02/13/25
23:12
WBC 20.5 H 10^3/uL
(4.8-10.8)
Hgb 10.6 L g/dL
(12.0-16.0)
Hct 33.4 L %
(37.0-47.0)
MCV 78.4 L fL
(81.0-99.0)
MCH 24.9 L pg
(27.0-31.0)
MCHC 31.7 L g/dL
(33.0-37.0)
RDW 18.0 H %
(11.5-14.5)
Abs Immat Gran (auto) 0.1 H 10^3/uL
(0-0.05)
Absolute Neuts (auto) 17.9 H 10^3/uL
(1.4-6.5)
Absolute Lymphs (auto) 1.1 L 10^3/uL
(1.2-3.4)
Absolute Monos (auto) 1.4 H 10^3/uL
(0.1-0.6)
Immature Gran % 0.6 H %
(0-0.5)
Neutrophils % 87.2 H %
(42.2-75.2)
Lymphocytes % 5.1 L %
(20.5-51.1)
Glucose 123 H mg/dl
(70-99)
02/13/25 23:12
02/13/25 23:12
Vital Signs
Initial and Last Documented VS:
Initial Vital Signs
Pulse Resp BP Pulse Ox
72 20 106/73 93
02/13/25 23:02 02/13/25 23:02 02/13/25 23:02 02/13/25 23:02
Last Documented Vital Signs
Temp Pulse Resp BP Pulse Ox
36.8 C 75 18 106/73 93
02/13/25 23:03 02/13/25 23:03 02/13/25 23:03 02/13/25 23:03 02/13/25 23:43
MDM/Problems Addressed
Differential Diagnosis Includes:
pneumonia/aspiration, UTI, colitis, sepsis, bacteremia
MDM/Problems Addressed:
room 1 lida ramírez
79 y/o F dementia, [place]
uti tx cefdinir x 10 days, with lethargy, vomiting, cough
wbc 20, suspect urine is source; lab spilled the first specimen, recollected
ct head neg
ct also shows probable aspiration pna, stercoral colitis no perforation
no obstructive uropathy
zosyn; DNR;
i spoke with who confirmed this
willadmit to hospitalist
*Pulse Oximetry
SaO2: 93
Oxygen Mode of Delivery: Room air
Patient hypoxic: no (93)
*Critical Care Note
Total Time (30-74mins, 75-104mins- exclusive of procedures): Not Applicable
ED Attending Note
-
Portions of this chart may have been created with voice recognition software.� Occasional wrong word or��sound alike� substitutions may have occurred due to the inherent limitations of voice recognition software.
Discharge Plan
Departure
Patient Disposition: Admit
Date of Disposition: 02/14/25
Time of Disposition: 01:32
Admit to: Med/Surg
Presentation/result/management discussed w/ accepting MD/DO: Hospitalist
Condition: Fair
Covid-19: Not Applicable
Discharge Problem:
Aspiration pneumonia, UTI (urinary tract infection), AMS (altered mental status), Constipation, Stercoral colitis
Prescriptions:
No Action
anastrozole 1 mg Tablet
1 mg PO QPM
donepezil 10 mg Tablet
10 mg PO HS
simvastatin 20 mg Tablet
20 mg PO QPM
memantine 10 mg Tablet
10 mg PO BID
acetaminophen 325 mg Tablet
650 mg PO Q4HPRN PRN (Reason: mild pain/CATHERINE/temp> 100.4F) Qty: 0 0RF
polyethylene glycol 3350 17 gram Powder In Packet
17 g PO DAILY Qty: 0 0RF
ferrous sulfate [FeroSul] 325 mg (65 mg iron) Tablet
325 mg PO DAILY Qty: 0 0RF
magnesium oxide 500 mg magnesium Tablet
500 mg PO DAILY Qty: 0 0RF
fexofenadine 180 mg Tablet
180 mg PO HS Qty: 0 0RF
losartan 50 mg Tablet
50 mg PO DAILY
trazodone 50 mg Tablet
50 mg PO HS
magnesium hydroxide [Milk of Magnesia] 400 mg/5 mL Suspension
2,400 mg PO DAILYPRN PRN (Reason: if no bm by 9 shifts)
bisacodyl [Dulcolax (bisacodyl)] 10 mg Suppository
10 mg AR DAILYPRN PRN (Reason: if no bm by 12 shifts)
Fleet Enema 19-7 gram/118 mL Enema
118 ml AR DAILYPRN PRN (Reason: if no bm on 4th day)
pantoprazole [Protonix] [address] For Susp In Packet
40 mg PO DAILY
sucralfate 100 mg/mL suspension
10 ml PO QID
Referrals:
Jolynn Merlos MD [Family Provider, Internal Medicine]
Interventions
Interventions:
*Risk Screen - Suicide Last Done: 02/13/25 23:03
*General Assessment Last Done: 02/13/25 23:03
*Neglect/Abuse Screening Last Done: 02/13/25 23:03
*ED- Fall Risk Assessment Last Done: 02/13/25 23:03
*ED COVID-19 Vaccine History Last Done: 02/13/25 23:03
Discharge Date and Time
Print Language: VIETNAMESE
[2025-02-13 23:50] LABS: ALT (SGPT) 13 U/L (0-35); AST (SGOT) 20 U/L (14-36); Albumin 3.6 g/dl (3.5-5.0); Alkaline Phosphatase 126 U/L (38-126); Blood Urea Nitrogen 13 mg/dl (7-17); Calcium 8.7 mg/dl (8.4-10.2); Carbon Dioxide 24 mmol/L (22-30); Chloride 104 mmol/L (98-107); Estimated Creatinine Clearance 58 ml/min; Glucose 123 mg/dl (70-99); Potassium 4.4 mmol/L (3.5-5.1); Sodium 137 mmol/L (135-145); Total Protein 6.8 g/dl (6.3-8.2); eGFR > 60.00
[2025-02-14] VITALS (11 sets, daily range): BP systolic 83–130; BP diastolic 44–70; PULSE 72; BMI 21.5
[2025-02-14] MEDS: NSS 1000 IV (00:12)
[2025-02-14 01:58] LABS: Urine Character Cloudy (Clear)
[2025-02-14] MEDS: ZOSYN 50 IV ×4 (02:09→21:02)
--- NOTE | 2025-02-14 02:47 | HPS.HSE ---
Family Physician
-
Family Physician: Jolynn Merlos
Chief Complaint
-
Cough, Lethargy
History of Present Illness
Patient is an 79y F with PMH significant for senile dementia and hypertension who presents to ED from local [place] for evaluation of cough and lethargy. Patient was noted to have coughing over the past few weeks. An outpatient CXR was done on 01/27
which showed R base infiltrate. Patient was treated with Omnicef 300mg BID x 10 days which she has since completed. Unfortunately, she continues to cough and staff at the [place] report that she has been more lethargic, decreased appetite, etc.
Patient was sent to the ED for further evaluation.
Patient has limited ability to contribute to this history due to her baseline dementia. She does answer some Y/N questions and denies any complaints for me at present.
Medical History
Past Medical History
Past Medical History: Reports Other
Additional Past Medical History:
GERD
HTN
HLD
Dementia
Past Surgical History: Reports Other
Additional Past Surgical History:
knee replacement
left knee surgery
hemorrhoidectomy
Social History
Unable to obtain full social history at this time due to: Dementia
Family History
Family History: Not pertinent
Allergies / Home Medications
Allergies reflects when Allergies were last updated in [facility].
Home Medications with original date entered in [facility]
Allergy/Medication List:
Allergies
Allergy/AdvReac Type Severity Reaction Status Date / Time
No Known Allergies Allergy Verified 09/25/24 17:44
Home Medications
donepezil 10 mg tablet 10 mg PO HS Neurological Condition 09/25/24
memantine 10 mg tablet 10 mg PO BID Neurological Condition 09/25/24
simvastatin 20 mg tablet 20 mg PO QPM High Cholesterol 09/25/24
acetaminophen 325 mg tablet 650 mg (2 x 325 mg) PO Q4HPRN PRN mild pain/CATHERINE/temp> 100.4F #0 tabs 10/15/24
ferrous sulfate 325 mg (65 mg iron) tablet (FeroSul) 325 mg PO DAILY anemia #0 tabs 10/15/24
fexofenadine 180 mg tablet 180 mg PO HS Allergies #0 tabs 10/15/24
magnesium oxide 500 mg PO DAILY Electrolyte Repletion #0 tabs 10/15/24
polyethylene glycol 3350 17 gram oral powder packet 17 g PO DAILY Gastrointestinal issue #0 ea 10/15/24
bisacodyl 10 mg rectal suppository (Dulcolax (bisacodyl)) 10 mg NV DAILYPRN PRN if no bm by 12 shifts 11/19/24
losartan 50 mg tablet 50 mg PO DAILY 11/19/24
magnesium hydroxide 400 mg/5 mL oral suspension (Milk of Magnesia) 2,400 mg PO DAILYPRN PRN if no bm by 9 shifts 11/19/24
sodium phosphates 19 gram-7 gram/118 mL enema (Fleet Enema) 118 ml NV DAILYPRN PRN if no bm on 4th day 11/19/24
mirtazapine 15 mg tablet 15 mg PO HS 02/14/25
omeprazole 40 mg capsule,delayed release 40 mg PO DAILY 02/14/25
sennosides 8.6 mg tablet (senna) 8.6 mg PO HS 02/14/25
Review of Systems
-
Unable to obtain full review of systems at this time due to: Dementia
Physical Exam
Vital Signs
Vital Signs
Temp Pulse Resp BP Pulse Ox
98.2 F 75 18 106/73 93
02/13/25 23:03 02/13/25 23:03 02/13/25 23:03 02/13/25 23:03 02/13/25 23:43
Physical Exam
General: Other (79y F in no evident distress.)
HEENT: Moist mucous membranes and PERRLA
Respiratory: Other (Coarse breath sounds at R base. Pos cough during exam. No wheezing.)
Cardiac: S1/S2 and Regular Rhythm; No Murmur
GI: Soft, Non Tender, Non Distended and Normal Bowel Sounds
Rectal: Other (Dark brown, soft stool disimpacted. Heme negative in the ED. Moderate amount of stool removed.)
Musculoskeletal: No Clubbing, No Cyanosis and No Edema
Neuro: Other (Awake, Responds to vocal / tactile stimuli. Answers some Y/N questions and follows some commands.)
Laboratory Results
-
02/13/25 23:12
02/13/25 23:12
Laboratory Results
Lactic Acid 0.9 mmol/L (0.7-2.0) 02/14/25 00:00
Total Bilirubin 0.6 mg/dl (0.2-1.3) 02/13/25 23:12
AST 20 U/L (14-36) 02/13/25 23:12
ALT 13 U/L (0-35) 02/13/25 23:12
Alkaline Phosphatase 126 U/L (38-126) 02/13/25 23:12
Impression/Plan
-
A/P: Patient is an 79y F with PMH significant for hypertension and dementia who presents to ED from [place] for evaluation of cough and lethargy.
RLL Pneumonia
- Admit for further evaluation and treatment.
- Infiltrate seen on CXR done 01/27 and appreciated again on CT scan done in the ED today.
- s/p Omnicef 300mg BID x 10 days (completed 02/07).
- ? aspiration given baseline dementia / mental status issues.
- Aspiration precautions. Speech evaluation.
- IV abx with Zosyn for now - follow for clinical improvement.
- Nebs, mucolytics, etc.
Stercoral Colitis / Constipation
- Large rectal stool ball appreciated on CT scan with surrounding inflammation / stranding concerning for stercoral colitis.
- Manually disimpacted in the ED for moderate amount of soft, dark stool.
- Send for formal heme testing (negative at the bedside in the ED - patient is on oral iron).
- Bowel regimen to continue. Follow for adequate BMs and any complaints of abdominal pain, etc.
Possible UTI
- Urine in the ED was reportedly grossly purulent. UA is pending.
- IV abx as noted above. Follow-up culture data.
Benign Hypertension
- Stable. Hold antihypertensive medications acutely.
Senile Dementia
- Stable. Minimally communicative at baseline.
- Continue Aricept / Namenda.
GERD / Hiatal Hernia
- Stable. Continue PPI daily.
DVT Prophylaxis: Subcut heparin
Code Status: DNR
[2025-02-14 02:48] LABS: Urine White Cell >100 /HPF (0-5)
--- NOTE | 2025-02-14 04:42 | PTCARENOTE ---
Pt transferred to 4 W. Pt pulled from stretcher to bed. Pt lethargic and unable to answer any questions. Pt is arousable to painful stimuli. Most admission questions answered form chart lookup. Pt shows no s/s of pain. Bed alarm in place, call hernandez
within reach.
[2025-02-14] MEDS: LR 1000 IV ×3 (04:55→18:23)
[2025-02-14 07:56] LABS: Hematocrit 29.2 % (37.0-47.0); Hemoglobin 9.4 g/dL (12.0-16.0); Mean Corp Hgb Conc. 32.2 g/dL (33.0-37.0); Mean Corpuscular Volume 79.1 fL (81.0-99.0); Platelet Count 324 10^3/uL (130-400); Red Cell Dist. Width 17.9 % (11.5-14.5)
[2025-02-14 08:44] LABS: Blood Urea Nitrogen 11 mg/dl (7-17); Calcium 8.1 mg/dl (8.4-10.2); Carbon Dioxide 24 mmol/L (22-30); Chloride 106 mmol/L (98-107); Estimated Creatinine Clearance 58 ml/min; Glucose 92 mg/dl (70-99); Potassium 3.8 mmol/L (3.5-5.1); Sodium 135 mmol/L (135-145); eGFR > 60.00
[2025-02-14] MEDS: FEOSOL 325 MG PO (10:11)
[2025-02-14] MEDS: MIRALAX 17 GRAMS PO ×2 (10:11→21:03)
[2025-02-14] MEDS: COLACE 100 MG PO (10:11)
[2025-02-14] MEDS: NAMENDA 10 MG PO ×2 (10:11→21:03)
[2025-02-14] MEDS: HEPARIN 5000 UNITS SC ×2 (10:11→21:02)
--- NOTE | 2025-02-14 11:43 | CM ---
Patient seen bedside with spouse in room.
Patient with hx dementia.
IA completed with spouse.
Patient is LTC at [facility], spouse comes every day to visit.
Ptient needs assist with ADLs, is ambulatory with a walker if she is with someone.
Patient can feed herself once set up.
Plan is return to [facility] when stable, spouse will transport.
Spoke with Nathaly at [facility], clinicals via [facility], if patient is a weekend d/c, clinicals will need to be faxed as no [employer] access.
PCP: Gaurang
Pharmacy: [facility]
Plan: [facility] LTC
[facility]
Report# [phone]
--- NOTE | 2025-02-14 12:17 | W.PN.UPDATE ---
Update Note
Progress Note Update
Seen and examined independent of overnight physician
Patient mentation seems to have improved after aggressive IV fluid resuscitation. Currently awake. States some mild abdominal discomfort.
General: Sleeping but does wake up and have conversation
HEENT: Moist mucous membranes and PERRLA
Respiratory: Coarse breath sounds. No wheezing.
Cardiac: S1/S2 and Regular Rhythm; No Murmur
GI: Soft, Non Tender, Non Distended and Normal Bowel Sounds
Musculoskeletal: No Clubbing, No Cyanosis and No Edema
Neuro: Awake. Apparent dementia. Moving all 4 extremity.
A/P: Patient is an 79y F with PMH significant for hypertension and dementia who presents to ED from [place] for evaluation of cough and lethargy.
RLL Pneumonia ? Aspiration
Hypotension likely secondary dehydration
Toxic metabolic encephalopathy likely multifactorial secondary to dehydration, infection, worsening of dementia
- Infiltrate seen on CXR done 01/27 and appreciated again on CT scan done in the ED today.
- s/p Omnicef 300mg BID x 10 days (completed 02/07).
- ? aspiration given baseline dementia / mental status issues.
- Aspiration precautions. Speech evaluation.
- IV abx with Zosyn for now - follow for clinical improvement. Improvement in leukocytosis.
- Nebs, mucolytics, etc. aggressive IV fluid resuscitation. Midodrine added
Stercoral Colitis / Constipation
- Large rectal stool ball appreciated on CT scan with surrounding inflammation / stranding concerning for stercoral colitis.
- Manually disimpacted in the ED for moderate amount of soft, dark stool.
- Send for formal heme testing (negative at the bedside in the ED - patient is on oral iron).
- Bowel regimen to continue. Follow for adequate BMs and any complaints of abdominal pain, etc.
Possible UTI
- Urine in the ED was reportedly grossly purulent. UA is pending.
- IV abx as noted above. Follow-up culture data.
Benign Hypertension
- Stable. Hold antihypertensive medications acutely.
Senile Dementia
Dysphagia
- Stable. Minimally communicative at baseline.
- Continue Aricept / Namenda.
- Speech therapy recommends pur�ed diet
GERD / Hiatal Hernia
- Stable. Continue PPI daily.
DVT Prophylaxis: Subcut heparin
Code Status: DNR
Discussed with patient spouse at bedside in detail.
[2025-02-14] MEDS: PREVACID 30 MG PO (12:50)
[2025-02-14] MEDS: ROBITUSSIN 200 MG PO ×3 (12:50→21:03)
[2025-02-14] MEDS: ROBITUSSIN PO (12:54)
[2025-02-14] MEDS: LIPITOR 10 MG PO (18:20)
[2025-02-14] MEDS: COLACE LIQUID 100 MG PO (21:02)
[2025-02-14] MEDS: ARICEPT 10 MG PO (21:03)
[2025-02-14] MEDS: SENOKOT 17.2 MG PO (21:04)
[2025-02-14] MEDS: REMERON 15 MG PO (21:06)
[2025-02-15] MEDS: ZOSYN 50 IV ×4 (02:06→19:20)
[2025-02-15 03:41] VITALS: BMI 22.0
[2025-02-15] MEDS: LR 1000 IV ×2 (04:11→14:32)
[2025-02-15] MEDS: ROBITUSSIN 200 MG PO ×5 (04:12→21:41)
[2025-02-15 07:00] VITALS: BP 112/74
[2025-02-15 08:33] LABS: Hematocrit 29.3 % (37.0-47.0); Hemoglobin 9.1 g/dL (12.0-16.0); Mean Corp Hgb Conc. 31.1 g/dL (33.0-37.0); Mean Corpuscular Volume 79.4 fL (81.0-99.0); Nucleated Red Blood Cells % 0 %; Platelet Count 306 10^3/uL (130-400); Red Cell Dist. Width 17.6 % (11.5-14.5)
[2025-02-15] MEDS: COLACE LIQUID 100 MG PO ×2 (08:52→19:19)
[2025-02-15] MEDS: MIRALAX 17 GRAMS PO ×2 (08:53→19:19)
[2025-02-15] MEDS: NAMENDA 10 MG PO ×2 (08:54→19:20)
[2025-02-15] MEDS: FEOSOL 325 MG PO (08:54)
[2025-02-15] MEDS: HEPARIN 5000 UNITS SC ×2 (08:54→19:19)
[2025-02-15] MEDS: PREVACID 30 MG PO (08:54)
[2025-02-15 09:12] LABS: Blood Urea Nitrogen 6 mg/dl (7-17); Calcium 7.7 mg/dl (8.4-10.2); Carbon Dioxide 25 mmol/L (22-30); Chloride 106 mmol/L (98-107); Estimated Creatinine Clearance 58 ml/min; Glucose 79 mg/dl (70-99); Potassium 3.8 mmol/L (3.5-5.1); Sodium 136 mmol/L (135-145); eGFR > 60.00
--- NOTE | 2025-02-15 09:24 | PN.CDI ---
CDI
- -
CDI:
Physician Documentation Request
Admit Date: 02/14/25 03:43
Dear Doctor Karolyn,
Please review the following and provide your response in the progress notes.
Clinical Indicators:
Pt admitted with Aspiration PNA/TME/Suspected UTI/Stercoral colitis /on IV Zosyn
On admission WBC 20.5, RR 28
Please clarify which of the following most accurately describes the status of the patient's infection:
Sepsis-POA
- Systemic manifestations of infection, with 2 or more SIRS criteria which include:
- Fever >100.9 degrees F or hypothermia < 96.8 degrees F
- Leukocytosis - WBC > 12,000 or leukopenia - WBC < 4,000 or > 10% bands
- Tachycardia > 90 beats per minute
- Tachypnea - RR > 20 breaths per minute or PaCO2 , 32mmHg
Source: Merck Manual 2013
Aspiration PNA/ UTI - only , Without Systemic Illness
Other ( please specify)
Use of terms such as suspected, likely, concern for, or probable (associated with a specific diagnosis that is being evaluated, monitored, or treated as if it exists) are acceptable and can be coded in the inpatient setting, when documented at the
time of discharge.
Thank you,
Lala Childress RN
CDI Specialist
[place] [facility]
Please use your independent medical judgment in providing your response.
--- NOTE | 2025-02-15 09:28 | PN.CDI ---
CDI
- -
CDI:
Physician Documentation Request
Admit Date: 02/14/25 03:43
Dear Doctor Karolyn,
Please review the following and provide your response in the progress notes.
Clinical Indicators:
Pt admitted with Aspiration PNA/TME/Suspected UTI/Stercoral colitis /on IV Zosyn
Nursing wound care note 02/13, ' Present on admission bilateral heel pressure injury stage 1 ...wound treatment B/L heel foams... Present on admission sacrum pressure injury stage 2 ...treatment provided silicone border...'
Physician documentation of the type and location of wounds is required for compliant documentation. Based on the above clinical findings and your assessment, please provide the following in your progress note:
1. Location of the ulcer/wound, including laterality ( for each wound)
2. Type (etiology) of ulcer/wound:
- Pressure (decubitus) ulcer
- Non-pressure ulcer
- Other ( please specify)
Use of terms such as suspected, likely, concern for, or probable (associated with a specific diagnosis that is being evaluated, monitored, or treated as if it exists) are acceptable and can be coded in the inpatient setting, when documented at the
time of discharge.
Thank you,
Lala Childress RN
CDI Specialist
[place] [facility]
Please use your independent medical judgment in providing your response.
*Source: National Pressure Ulcer Advisory Panel (NPUAP)
--- NOTE | 2025-02-15 11:25 | W.PN.HOSP.TC ---
Today's Communication/Plan
-
Follow-up on the blood culture data
Follow-up on the urine culture susceptibility results
Continue with IV antibiotics
Change midodrine to as needed
Blood pressure improved
Assessment / Plan
Assessment / Plan
General: Sleeping but does wake up, cachectic
HEENT: Moist mucous membranes and
Respiratory: Coarse breath sounds. No wheezing.
Cardiac: S1/S2 and Regular Rhythm; No Murmur
GI: Soft, Non Tender, Non Distended and Normal Bowel Sounds
Musculoskeletal: No Clubbing, No Cyanosis and No Edema
Neuro: Awake. Apparent dementia. Moving all 4 extremities
A/P: Patient is an 79y F with PMH significant for hypertension and dementia who presents to ED from [place] for evaluation of cough and lethargy.
RLL Pneumonia ? Aspiration
Hypotension likely secondary dehydration
Gram-positive bacteremia 1 out of 4 bottles likely contaminant. Will follow identification
Toxic metabolic encephalopathy likely multifactorial secondary to dehydration, infection, worsening of dementia
Sepsis likely secondary to aspiration pneumonia versus UTI versus stercoral colitis POA
- Infiltrate seen on CXR done 01/27 and appreciated again on CT scan done in the ED today.
- s/p Omnicef 300mg BID x 10 days (completed 02/07).
- ? aspiration given baseline dementia / mental status issues.
- Aspiration precautions. DC IV fluid later today
- IV abx with Zosyn for now - follow for clinical improvement. Leukocytosis resolved
- Nebs, mucolytics, etc. aggressive IV fluid resuscitation. Blood pressure stabilized.
Stercoral Colitis / Constipation
- Large rectal stool ball appreciated on CT scan with surrounding inflammation / stranding concerning for stercoral colitis.
- Manually disimpacted in the ED for moderate amount of soft, dark stool.
- Send for formal heme testing (negative at the bedside in the ED - patient is on oral iron).
- Bowel regimen to continue. Follow for adequate BMs and any complaints of abdominal pain, etc.
E. coli urinary tract infection
- Urine in the ED was reportedly grossly purulent.
- IV abx as noted above. Follow-up culture data.
Benign Hypertension
- Stable. Hold antihypertensive medications acutely.
Senile Dementia
Dysphagia
- Stable. Minimally communicative at baseline.
- Continue Aricept / Namenda.
- Speech therapy recommends pur�ed diet
Bilateral heel pressure injury stage I DTI POA
Sacrum pressure injury stage II POA
Wound care
DVT Prophylaxis: Subcut heparin
Code Status: DNR
Anticipated Discharge: > 48 hours
Subjective/Interval History
-
Date of Service: February 15, 2025
No overnight events
Denies abdominal pain
Objective Data
-
Labs:
Laboratory Results
02/15/25
08:06
WBC 9.1
Hgb 9.1 L
Hct 29.3 L
Plt Count 306
Sodium 136
Potassium 3.8
Chloride 106
Carbon Dioxide 25
BUN 6 L
Creatinine 0.5 L
Glucose 79
Calcium 7.7 L
Vital Signs:
Vital Signs
Temp Pulse Resp BP Pulse Ox
98.7 F 76 18 112/74 95
02/15/25 07:00 02/15/25 07:00 02/15/25 07:00 02/15/25 07:00 02/15/25 07:00
I&O
02/14/25 02/15/25 02/16/25
06:59 06:59 06:59
Intake Total 3200 / 3200
Balance 3200 / 3200
Data Reviewed
-
Total Time Spent with Patient (in minutes): 55
[2025-02-15 15:00] VITALS: BP 148/59
--- NOTE | 2025-02-15 16:15 | CM ---
Addendum entered by Lauren Valdivia 02/15/25 16:23:
Current clinicals sent to [facility]
Original Note:
Chart Reviewed. Met pt and spouse at bedside. Remains on IV ABX. Spouse concerned about bowel motility. Referred him to nursing.
Plan: return to [place] when stable. Will follow for d/c needs.
[2025-02-15] MEDS: LIPITOR 10 MG PO (18:18)
[2025-02-15] MEDS: ARICEPT 10 MG PO (21:40)
[2025-02-15] MEDS: REMERON 15 MG PO (21:40)
[2025-02-15] MEDS: SENOKOT 17.2 MG PO (21:41)
[2025-02-15 23:15] VITALS: BP 133/60
[2025-02-16] MEDS: ZOSYN 50 IV ×2 (02:15→07:57)
[2025-02-16] MEDS: LR 1000 IV (02:15)
[2025-02-16 05:58] VITALS: BMI 22.6
[2025-02-16 07:00] VITALS: BP 139/64
[2025-02-16 07:50] LABS: Hematocrit 28.4 % (37.0-47.0); Hemoglobin 8.9 g/dL (12.0-16.0); Mean Corp Hgb Conc. 31.3 g/dL (33.0-37.0); Mean Corpuscular Volume 78.5 fL (81.0-99.0); Nucleated Red Blood Cells % 0 %; Platelet Count 331 10^3/uL (130-400); Red Cell Dist. Width 17.5 % (11.5-14.5)
[2025-02-16] MEDS: FEOSOL 325 MG PO (07:58)
[2025-02-16] MEDS: HEPARIN 5000 UNITS SC ×2 (07:58→20:23)
[2025-02-16] MEDS: PREVACID 30 MG PO (07:58)
[2025-02-16] MEDS: NAMENDA 10 MG PO ×2 (07:58→20:23)
[2025-02-16] MEDS: MIRALAX 17 GRAMS PO (07:59)
[2025-02-16] MEDS: COLACE LIQUID 100 MG PO (07:59)
[2025-02-16] MEDS: ROBITUSSIN 200 MG PO ×4 (07:59→20:23)
[2025-02-16 08:25] LABS: Blood Urea Nitrogen 3 mg/dl (7-17); Calcium 7.7 mg/dl (8.4-10.2); Carbon Dioxide 23 mmol/L (22-30); Chloride 108 mmol/L (98-107); Estimated Creatinine Clearance 58 ml/min; Glucose 76 mg/dl (70-99); Potassium 3.4 mmol/L (3.5-5.1); Sodium 136 mmol/L (135-145); eGFR > 60.00
[2025-02-16] MEDS: KCL ELIXIR 40 MEQ PO (09:05)
[2025-02-16 09:25] LABS: Magnesium 2.0 mg/dl (1.6-2.3)
[2025-02-16 11:18] LABS: ALT (SGPT) < 10 U/L (0-35); AST (SGOT) 14 U/L (14-36); Albumin 2.7 g/dl (3.5-5.0); Alkaline Phosphatase 135 U/L (38-126); Total Protein 5.3 g/dl (6.3-8.2)
--- NOTE | 2025-02-16 11:22 | W.PN.HOSP.TC ---
Addendum entered and electronically signed by Michael Parr MD 02/16/25 13:28:
Discussed with RN. Patient had 3 soft bowel movement so far today. Can hold on further enema. Continue with p.o. bowel regimen.
Original Note:
Today's Communication/Plan
-
De-escalate antibiotic
DC fluid
Monitor blood pressure
May require aggressive bowel regimen
Assessment / Plan
Assessment / Plan
General: Awake, cachectic
HEENT: Moist mucous membranes and
Respiratory: Coarse breath sounds. No wheezing.
Cardiac: S1/S2 and Regular Rhythm; No Murmur
GI: Soft, Non Tender, Non Distended and Normal Bowel Sounds
Musculoskeletal: No Clubbing, No Cyanosis and No Edema
Neuro: Awake. Apparent dementia. Moving all 4 extremities
A/P: Patient is an 79y F with PMH significant for hypertension and dementia who presents to ED from [place] for evaluation of cough and lethargy.
RLL Pneumonia ? Aspiration
Hypotension likely secondary dehydration
Staph epidermidis 1 out of 4 bottles likely contaminant.
Toxic metabolic encephalopathy likely multifactorial secondary to dehydration, infection, worsening of dementia
Sepsis likely secondary to aspiration pneumonia versus UTI versus stercoral colitis POA
- Infiltrate seen on CXR done 01/27 and appreciated again on CT scan done in the ED today.
- s/p Omnicef 300mg BID x 10 days (completed 02/07).
- ? aspiration given baseline dementia / mental status issues.
- Aspiration precautions. Blood pressure stabilized. Off IV fluids.
- IV abx with Zosyn for now - follow for clinical improvement. Leukocytosis resolved
- Nebs, mucolytics, etc.
Stercoral Colitis / Constipation
- Large rectal stool ball appreciated on CT scan with surrounding inflammation / stranding concerning for stercoral colitis.
- Manually disimpacted in the ED for moderate amount of soft, dark stool.
- Send for formal heme testing (negative at the bedside in the ED - patient is on oral iron).
- Bowel regimen to continue. May require additional dose of aggressive laxatives
E. coli urinary tract infection
- Urine in the ED was reportedly grossly purulent.
- IV abx as noted above. Follow-up culture data.
Benign Hypertension
- Stable.
Senile Dementia
Dysphagia
- Stable. Minimally communicative at baseline.
- Continue Aricept / Namenda.
- Speech therapy recommends pur�ed diet
Bilateral heel pressure injury stage I DTI POA
Sacrum pressure injury stage II POA
Wound care
Hypokalemia
-replete/monitor
DVT Prophylaxis: Subcut heparin
Code Status: DNR
Updated spouse over the phone in detail
PT-probably back to [facility]
Anticipated Discharge: 24 - 48 hours
Subjective/Interval History
-
Date of Service: February 16, 2025
Currently awake and
Denies abdominal pain or discomfort
Objective Data
-
Labs:
Laboratory Results
02/16/25
06:16
WBC 8.0
Hgb 8.9 L
Hct 28.4 L
Plt Count 331
Sodium 136
Potassium 3.4 L
Chloride 108 H
Carbon Dioxide 23
BUN 3 L
Creatinine 0.5 L
Glucose 76
Calcium 7.7 L
Total Bilirubin 0.4
AST 14
ALT < 10
Alkaline Phosphatase 135 H
Vital Signs:
Vital Signs
Temp Pulse Resp BP Pulse Ox
97.8 F 64 16 139/64 94
02/16/25 07:00 02/16/25 07:00 02/16/25 07:00 02/16/25 07:00 02/16/25 07:00
I&O
02/15/25 02/16/25 02/17/25
06:59 06:59 06:59
Intake Total 3200 / 3200 1480 / 1480
Balance 3200 / 3200 1480 / 1480
Data Reviewed
-
Total Time Spent with Patient (in minutes): 55
[2025-02-16] MEDS: UNASYN IV ×2 (12:02→17:33)
[2025-02-16 15:00] VITALS: BP 145/76
[2025-02-16] MEDS: LIPITOR 10 MG PO (17:33)
[2025-02-16] MEDS: REMERON 15 MG PO (20:23)
[2025-02-16] MEDS: ARICEPT 10 MG PO (20:23)
[2025-02-16] MEDS: SENOKOT PO (20:24)
[2025-02-16] MEDS: COLACE LIQUID PO (20:24)
[2025-02-16] MEDS: MIRALAX PO (20:24)
[2025-02-16 22:59] VITALS: BP 137/73
[2025-02-17] MEDS: UNASYN IV ×3 (00:58→11:41)
[2025-02-17 06:00] VITALS: BMI 22.2
[2025-02-17 06:52] LABS: Hematocrit 30.7 % (37.0-47.0); Hemoglobin 9.8 g/dL (12.0-16.0); Mean Corp Hgb Conc. 31.9 g/dL (33.0-37.0); Mean Corpuscular Volume 78.9 fL (81.0-99.0); Nucleated Red Blood Cells % 0 %; Platelet Count 355 10^3/uL (130-400); Red Cell Dist. Width 17.2 % (11.5-14.5)
[2025-02-17 07:00] VITALS: BP 149/73
[2025-02-17 07:12] LABS: Blood Urea Nitrogen < 2 mg/dl (7-17); Calcium 7.7 mg/dl (8.4-10.2); Carbon Dioxide 24 mmol/L (22-30); Chloride 107 mmol/L (98-107); Estimated Creatinine Clearance 58 ml/min; Glucose 76 mg/dl (70-99); Potassium 3.4 mmol/L (3.5-5.1); Sodium 135 mmol/L (135-145); eGFR > 60.00
[2025-02-17] MEDS: COLACE LIQUID 100 MG PO (07:42)
[2025-02-17] MEDS: ROBITUSSIN 200 MG PO (07:42)
[2025-02-17] MEDS: HEPARIN 5000 UNITS SC (07:42)
[2025-02-17] MEDS: MIRALAX 17 GRAMS PO (07:43)
[2025-02-17] MEDS: FEOSOL 325 MG PO (07:43)
[2025-02-17] MEDS: PREVACID 30 MG PO (07:43)
[2025-02-17] MEDS: NAMENDA 10 MG PO (07:43)
[2025-02-17] MEDS: KCL ELIXIR 40 MEQ PO (09:13)
--- NOTE | 2025-02-17 10:46 | W.PN.HOSP.TC ---
Today's Communication/Plan
-
po abx
replete kcl
Assessment / Plan
Assessment / Plan
General: Awake, cachectic
HEENT: Moist mucous membranes and
Respiratory: Coarse breath sounds. No wheezing.
Cardiac: S1/S2 and Regular Rhythm; No Murmur
GI: Soft, Non Tender, Non Distended and Normal Bowel Sounds
Musculoskeletal: No Clubbing, No Cyanosis and No Edema
Neuro: Awake. Apparent dementia. Moving all 4 extremities
A/P: Patient is an 79y F with PMH significant for hypertension and dementia who presents to ED from [place] for evaluation of cough and lethargy.
RLL Pneumonia ? Aspiration
Hypotension likely secondary dehydration
Staph epidermidis 1 out of 4 bottles likely contaminant.
Toxic metabolic encephalopathy likely multifactorial secondary to dehydration, infection, worsening of dementia
Sepsis likely secondary to aspiration pneumonia versus UTI versus stercoral colitis POA
- Infiltrate seen on CXR done 01/27 and appreciated again on CT scan done in the ED today.
- s/p Omnicef 300mg BID x 10 days (completed 02/07).
- ? aspiration given baseline dementia / mental status issues.
- Aspiration precautions. Blood pressure stabilized. Off IV fluids.
- Antibiotic de-escalated to Unasyn and will transition to Augmentin on discharge.
- Nebs, mucolytics, etc.
Stercoral Colitis / Constipation
- Large rectal stool ball appreciated on CT scan with surrounding inflammation / stranding concerning for stercoral colitis.
- Manually disimpacted in the ED for moderate amount of soft, dark stool.
- Send for formal heme testing (negative at the bedside in the ED - patient is on oral iron).
- Bowel regimen to continue. Had multiple bowel movements yesterday.
E. coli urinary tract infection
- Urine in the ED was reportedly grossly purulent.
- Sensitivity noted.
Benign Hypertension
- Stable.
Senile Dementia
Dysphagia
- Stable. Minimally communicative at baseline.
- Continue Aricept / Namenda.
- Speech therapy recommends pur�ed diet
Bilateral heel pressure injury stage I DTI POA
Sacrum pressure injury stage II POA
Wound care
Hypokalemia
-replete/monitor
DVT Prophylaxis: Subcut heparin
Code Status: DNR
Updated spouse over the phone in detail
More than 30 minutes spent in discharge including
Final examination of the patient
Summarizing hospital stay
Instructions for continuing care to all relevant caregivers
Preparation of discharge records, prescriptions, and referral forms
Total time spent (in minutes): 52
Anticipated Discharge: Today
Subjective/Interval History
-
Date of Service: February 17, 2025
no overnight events
had multiple bm yesterday
tolerating diet
afebrile
Objective Data
-
Labs:
Laboratory Results
02/17/25
06:05
WBC 8.7
Hgb 9.8 L
Hct 30.7 L
Plt Count 355
Sodium 135
Potassium 3.4 L
Chloride 107
Carbon Dioxide 24
BUN < 2 L
Creatinine 0.5 L
Glucose 76
Calcium 7.7 L
Vital Signs:
Vital Signs
Temp Pulse Resp BP Pulse Ox
98.9 F 61 16 149/73 95
02/17/25 07:00 02/17/25 07:00 02/17/25 07:00 02/17/25 07:00 02/17/25 07:00
I&O
02/16/25 02/17/25 02/18/25
06:59 06:59 06:59
Intake Total 1480 / 1480 1130 / 1130
Balance 1480 / 1480 1130 / 1130
--- NOTE | 2025-02-17 10:55 | W.DCSUMMARY ---
Discharge Summary
Discharge Data
Date of Admission: 02/14/25
Date of Discharge: 02/17/25
-
Pending Results: No
Hospital Course
79-year-old female past medical history of dementia, hypertension who is presenting from senior care for evaluation for cough and lethargy. Patient was found to be septic which was deemed multifactorial due to aspiration pneumonia, UTI and
stercoral colitis. Patient underwent CT abdomen pelvis which showed large rectal stool ball with surrounding inflammation and concern for stercoral colitis. Patient was disimpacted. Patient was on aggressive bowel regimen. Patient was having
bowel movements. Patient was also admitted physical occupational and speech therapy. Patient was started on modified pur�ed diet. Patient went hypotensive was stabilized with IV fluids. Patient blood pressure started to uptrend. Patient was
started on IV Zosyn which was de-escalated to Unasyn. Leukocytosis resolved. Significant improvement in mentation and patient seemed back to baseline mentation. Patient was tolerating diet. Patient also had E. coli urinary tract infection which
was pansensitive. IV antibiotics were de-escalated to p.o. antibiotics on discharge. Patient will be discharged back to [facility]. Patient spouse was updated about patient hospitalization.
Discharge Plan
-
Patient Disposition: Skilled Nursing/SNF
Discharge Diagnosis/Procedures: Right lower lobe aspiration pneumonia
Hypomagnesemia dehydration
Staph epidermidis bacteremia likely contaminant
Toxic metabolic encephalopathy
Sepsis
Stercoral colitis
Severe constipation
E. coli urinary tract infection
Condition: Fair
Diet: Other diet
Additional Diets: IDDS4 puree diet with thin liquids
Activity: As tolerated
Driving Restrictions: No driving
Referrals:
Jolynn Merlos MD [Family Provider, Internal Medicine] - in less than 1 week
Prescriptions:
New
guaifenesin 100 mg/5 mL Liquid
200 mg PO TID 10 Days Qty: 300 0RF
docusate sodium 50 mg/5 mL Liquid
100 mg PO BID Qty: 200 0RF
amoxicillin-pot clavulanate 875-125 mg tablet
1 tab PO BID Qty: 10 0RF
Continued
donepezil 10 mg Tablet
10 mg PO HS
simvastatin 20 mg Tablet
20 mg PO QPM
memantine 10 mg Tablet
10 mg PO BID
acetaminophen 325 mg Tablet
650 mg PO Q4HPRN PRN (Reason: mild pain/CATHERINE/temp> 100.4F) Qty: 0 0RF
polyethylene glycol 3350 17 gram Powder In Packet
17 g PO DAILY Qty: 0 0RF
ferrous sulfate [FeroSul] 325 mg (65 mg iron) Tablet
325 mg PO DAILY Qty: 0 0RF
magnesium oxide 500 mg magnesium Tablet
500 mg PO DAILY Qty: 0 0RF
fexofenadine 180 mg Tablet
180 mg PO HS Qty: 0 0RF
losartan 50 mg Tablet
50 mg PO DAILY
magnesium hydroxide [Milk of Magnesia] 400 mg/5 mL Suspension
2,400 mg PO DAILYPRN PRN (Reason: if no bm by 9 shifts)
bisacodyl [Dulcolax (bisacodyl)] 10 mg Suppository
10 mg NJ DAILYPRN PRN (Reason: if no bm by 12 shifts)
Fleet Enema 19-7 gram/118 mL Enema
118 ml NJ DAILYPRN PRN (Reason: if no bm on 4th day)
omeprazole 40 mg Capsule,Delayed Release(Dr/Ec)
40 mg PO DAILY
mirtazapine 15 mg Tablet
15 mg PO HS
Changed
sennosides [senna] 8.6 mg Tablet
17.2 mg PO HS Qty: 0 0RF
Discharge Orders:
Discharge Patient (As Directed); Ordered 02/17/25
Ordered By: Michael Parr
Discharge Date and Time
Print Language: ANDORRAN
--- NOTE | 2025-02-17 11:20 | CM ---
Patient will d/c today. Patient is LTC resident at [facility]
Clinicals faxed to SNF
Nurse spoke w/ [facility] nursing regarding d/c today
Spouse will transport. IMM verbally reviewed, copy provided, copy on chart
[facility]
Report# [phone]

Plan: Return to [facility] today
[2025-02-17 12:15] VITALS: BP 129/75
--- NOTE | 2025-02-17 12:30 | PTCARENOTE ---
Report given to Cely at [facility]. Pt's spouse is transporting pt to residence. [facility] packet faxed to facility.
== END 2025-02-17 13:37 | DRG 871 ==
LOC: 4 WEST ACU 03:43
PROVIDERS: Physician Assistant; Student in an Organized Health Care Education/Training Program; ADMITTING PHYSICIAN Hospitalist; ATTENDING PHYSICIAN Hospitalist; EMERGENCY PHYSICIAN Emergency Medicine; FAMILY PHYSICIAN Internal Medicine
DX: A41.9 Sepsis, unspecified organism (principal); G92.8 Other toxic encephalopathy; J69.0 Pneumonitis due to inhalation of food and vomit; N39.0 Urinary tract infection, site not specified; R64 Cachexia; E83.42 Hypomagnesemia; E86.0 Dehydration; I10 Essential (primary) hypertension; F03.90 Unspecified dementia, unspecified severity, without behavioral disturbance, psychotic disturbance, mood disturbance, and anxiety; K21.9 Gastro-esophageal reflux disease without esophagitis; K44.9 Diaphragmatic hernia without obstruction or gangrene; L89.611 Pressure ulcer of right heel, stage 1; L89.621 Pressure ulcer of left heel, stage 1; L89.152 Pressure ulcer of sacral region, stage 2; E87.6 Hypokalemia; Z66 Do not resuscitate; Z68.22 Body mass index [BMI] 22.0-22.9, adult; Z79.899 Other long term (current) drug therapy
CPT/HCPCS: 70450; 71045; 74177; 80048; 80053; 81003; 81015; 82248; 83605; 83735; 84100; 85025; 85027; 87040; 87070; 87077; 87086; 87147; 87154; 87186; 87205; 92610; 96361; 96374; 97163; 97167; 99285; Q9967